=== PATIENT | male | born 1940 | race Caucasian/White ===

== ENCOUNTER 2020-04-02 08:44 | Outpatient (REF) | payer MEDICARE, SELFPAY ==
--- NOTE | 2020-04-02 08:47 | XR_ITS ---
EXAMINATION: XR CHEST CLINICAL INFORMATION: Wheezing. COMPARISON: None TECHNIQUE: 2 views of the chest were obtained. FINDINGS: No significant abnormality is noted involving the heart, lungs, mediastinum, bony thorax or soft tissues. XR/XR chest 2V IMPRESSION: Unremarkable chest examination.
== END 2020-04-02 08:45 | disposition home or self-care (01) ==
LOC: HO.HMGCX 08:44
PROVIDERS: PCP Internal Medicine; Visit Provider Physician Assistant
DX: R05 Cough (principal); R06.2 Wheezing; Z20.822 Contact with and (suspected) exposure to COVID-19
CPT/HCPCS: 36415; 71046; 87070; 87205; 87635; U0003; U0005

== ENCOUNTER → 2020-04-10 15:16 | Outpatient (BNVA) | payer MEDICARE, SELFPAY | PROVIDERS: PCP Internal Medicine; Visit Provider Internal Medicine | DX: J45.909 Unspecified asthma, uncomplicated (principal); R05 Cough | CPT/HCPCS: 99202 ==

== ENCOUNTER → 2020-05-08 11:09 | Outpatient (BNVA) | payer MEDICARE, SELFPAY | PROVIDERS: PCP Internal Medicine; Visit Provider Internal Medicine | DX: J45.909 Unspecified asthma, uncomplicated (principal); R05 Cough; Z79.51 Long term (current) use of inhaled steroids; Z87.891 Personal history of nicotine dependence | CPT/HCPCS: 99212 ==

== ENCOUNTER → 2020-11-14 10:01 | Outpatient (BNVA) | payer MEDICARE, SELFPAY | PROVIDERS: PCP Internal Medicine; Visit Provider Internal Medicine | DX: J45.909 Unspecified asthma, uncomplicated (principal); R05 Cough | CPT/HCPCS: 99212 ==

== ENCOUNTER 2021-03-12 07:31 | Outpatient (REF) | payer MEDICARE, SELFPAY ==
[2021-03-12 12:15] LABS: Alanine Aminotransferase 23 U/L (0-40); Anion Gap 13 (12-20); Aspartate Amino Transferase 26 U/L (5-37); Blood Urea Nitrogen 19 mg/dL (9-16); Calcium 9.7 mg/dL (8.4-10.2); Carbon Dioxide 28 mmol/L (22-29); Chloride 102 mmol/L (96-108); Cholesterol 254 mg/dL; Estimated Glomerular Filt Rate 54; Glucose Fasting 100 mg/dL (60-99); HDL Cholesterol 48 mg/dL; LDL Cholesterol Calculated 172 mg/dl; Potassium 4.2 mmol/L (3.3-5.1); Sodium 139 mmol/L (135-145); Triglycerides 172 mg/dL
[2021-03-12 12:30] LABS: Vitamin D 25-OH Total 21.5 ng/mL (>30)
[2021-03-12 12:43] LABS: Folate 18.7 ng/mL (> or = 4.0); Vitamin B12 434 pg/mL (200-900)
== END 2021-03-12 07:32 | disposition home or self-care (01) ==
LOC: HO.HMGCLDS 07:31
PROVIDERS: PCP Internal Medicine; Visit Provider Internal Medicine
DX: I10 Essential (primary) hypertension (principal); R53.83 Other fatigue
CPT/HCPCS: 36415; 80048; 80061; 82306; 82607; 82746; 84450; 84460

== ENCOUNTER 2021-03-16 09:35 | Outpatient (REF) | payer MEDICARE, SELFPAY ==
--- NOTE | ~2021-03-16 | XR_ITS ---
EXAMINATION: CR LEFT ELBOW. CR LEFT SHOULDER. CLINICAL INFORMATION: Fall due to isodense No. Initial encounter. COMPARISON: Chest x-ray dated 04/02/2020 and left humerus dated 08/29/2008. TECHNIQUE: 3 views of the left elbow. 3 views of the left shoulder. FINDINGS: Left elbow: Mild soft tissue swelling over the ulnar olecranon is suspected. No acute fracture or dislocation. No abnormal elevation of the anterior fat pad. No radiopaque foreign body or calcifications in the soft tissues. No significant degenerative change. Left shoulder: No acute fracture or dislocation. Glenohumeral joint and acromion clavicular joint intact. Minimal cystic change and spurring at the acromioclavicular joint. Included left ribs intact. XR/XR shoulder LT min 2V IMPRESSION: No acute fracture of the left elbow or left shoulder. There may be mild soft tissue swelling over the ulnar olecranon.
--- NOTE | ~2021-03-16 | XR_ITS ---
EXAMINATION: CR LEFT ELBOW. CR LEFT SHOULDER. CLINICAL INFORMATION: Fall due to isodense No. Initial encounter. COMPARISON: Chest x-ray dated 04/02/2020 and left humerus dated 08/29/2008. TECHNIQUE: 3 views of the left elbow. 3 views of the left shoulder. FINDINGS: Left elbow: Mild soft tissue swelling over the ulnar olecranon is suspected. No acute fracture or dislocation. No abnormal elevation of the anterior fat pad. No radiopaque foreign body or calcifications in the soft tissues. No significant degenerative change. Left shoulder: No acute fracture or dislocation. Glenohumeral joint and acromion clavicular joint intact. Minimal cystic change and spurring at the acromioclavicular joint. Included left ribs intact. XR/XR elbow LT min 3V IMPRESSION: No acute fracture of the left elbow or left shoulder. There may be mild soft tissue swelling over the ulnar olecranon.
== END 2021-03-16 09:36 | disposition home or self-care (01) ==
LOC: HO.HMGCX 09:35
PROVIDERS: Visit Provider Physician Assistant Medical
DX: M25.512 Pain in left shoulder (principal); M25.522 Pain in left elbow; W00.9XXA Unspecified fall due to ice and snow, initial encounter
CPT/HCPCS: 73030; 73080

== ENCOUNTER → 2021-05-15 09:35 | Outpatient (BNVA) | payer MEDICARE, SELFPAY | PROVIDERS: PCP Internal Medicine; Visit Provider Internal Medicine | DX: J45.909 Unspecified asthma, uncomplicated (principal); R05.9 Cough, unspecified | CPT/HCPCS: 99212 ==

== ENCOUNTER 2021-05-16 09:00 | Outpatient (RCR) | payer MEDICARE, SELFPAY ==
--- NOTE | 2021-04-04 10:20 | MHC.PT.EP ---
[facility] [place] Office [place] Office [place] Office [address] Francisco Thomas [address] [phone] F: [phone] F: [phone] F: [phone] F: [phone] Physical Therapy Plan of Care Date of Evaluation: Date of Surgery: Diagnosis: This is a 80 yo male presenting to skilled PT with a script for L trap strain and L bicep injury Assessment: This is a 80 yo male presenting to skilled PT with a script for L trap strain and L bicep injury. Patient is RHD. He reported just before he slipped on the ice and fell onto his L side. He continues to have pain in the L shoulder and arm now but has been fearful to move his arm. He did not go to any MD after the fall but when the shoulder pain did not resolve with time, patient saw PCP. The patient reports that he can hold a coffee cup but cannot lift anything heavier than this due to pain. Pain is at rest and with movement; described as achy and sharp. Pain is located across the neck into the L upper trap, around the L GHJ and travels into the bicep. Denies numbness or tingling. Assessment reveals pain that ranges up to a 7/10. He demos decreased shoulder and cervical ROM, decreased shoulder and scapular strength, impaired posture with forward head and rounded posture, impaired GHJ joint mobility as well as gross functional decline with lifting, reaching and UB ADLs. He is a good candidate for skilled PT 2x/wk for 5wks. Frequency and Duration: The patient will be seen 2x/wk for 5wks Short Term Goals: I in HEP Demo proper cervical and shoulder alignment and posture with ther-ex, no PT cuing Supervisor Facepiece Line Goals: Demo normal shoulder AROM without pain Improve pain to no more than 2/10 at the worst Improve SPADI by 10 points Tolerate sleeping through the night without waking from pain Demo at least 4+/5 scapular and shoulder strength Treatment Plan: Modalities to reduce pain, spasms and effusion. Manual therapy to restore motion and function. Therapeutic exercise to improve strength and flexibility. Neuromuscular re-education for posture and balance. Therapeutic activities to return to functional activities of daily living. Electronically signed by: Zulay Subramanian PT Please sign and return to therapist. Thank you for your referral.
--- NOTE | 2021-05-16 12:28 | MHC.PT.DC ---
[facility] [place] Office [place] Office [place] Office [address] [phone] F: [phone] F: [phone] F: [phone] F: [phone] Physical Therapy Discharge Report Diagnosis: This is a 80 yo male presenting to skilled PT with a script for L trap strain and L bicep injury Date of Surgery: Date of Evaluation: 04/04/21 Date of Discharge: 05/16/21 Treatments to Date: 7 Cancellations to Date: 0 No Shows to Date: 0 Discharge Status: Achieved Goals Improved Function Independent with HEP Discharge Summary: Pt is I with HEP. Pt has met all ST and LTG's. He demos WFL ROM and improving strength. He is I in his HEP, has returned to normal daily routines and has improved his pain. He has a thorough HEP at home. DC to independent program. Electronically signed by: Zulay Subramanian PT Please sign and return to therapist. Thank you for your referral.
== END 2021-05-16 12:28 | disposition home or self-care (01) ==
LOC: HO.PTCHIC 09:00
PROVIDERS: PCP Internal Medicine; Visit Provider Physician Assistant Medical
DX: S46.812D Strain of other muscles, fascia and tendons at shoulder and upper arm level, left arm, subsequent encounter (principal); W00.9XXA Unspecified fall due to ice and snow, initial encounter
CPT/HCPCS: 97110; 97140; 97162

== ENCOUNTER → 2021-11-19 09:31 | Outpatient (BNVA) | payer MEDICARE, SELFPAY | PROVIDERS: PCP Internal Medicine; Visit Provider Internal Medicine | DX: J45.909 Unspecified asthma, uncomplicated (principal) | CPT/HCPCS: 94010; 99212 ==

== ENCOUNTER → 2022-05-27 09:51 | Outpatient (BNVA) | payer MEDICARE, SELFPAY | PROVIDERS: PCP Internal Medicine; Visit Provider Internal Medicine | DX: J45.991 Cough variant asthma (principal); Z87.891 Personal history of nicotine dependence | CPT/HCPCS: 99212 ==

== ENCOUNTER 2022-11-25 09:25 | Outpatient (AMB) | payer MEDICARE, SELFPAY ==
[2022-11-25 09:42] VITALS: BP 110/70; PULSE 64; O2SAT 98; BMI 28.2
--- NOTE | 2022-11-25 09:42 | MHC.OFFVIS ---
Intake Vital Signs 11/25/22 09:42 Height 5 ft 9 in Weight 191 lb BMI 28.2 BP 110/70 Blood Pressure Location Lt brachial Position Sitting Pulse 64 Pulse Source Pulse Oximeter Pulse Oximetry (%) 98 Oxygen Delivery Method Room Air Intake Visit Reasons: Shortness of breath follow-up Intake Note: pt is here for follow up and states he is the same as last visit, normal activity is fine, exertion he uses the inhaler. 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 Allergies naproxen Allergy (Unknown, Verified 11/25/22 10:06) GI bleed NSAIDS (Non-Steroidal Anti-Inflamma Allergy (Unknown, Verified 11/25/22 10:06) GI Bleed Medication List - Last Reconciled 11/25/22 by Idalia Mullen MD albuterol sulfate 90 mcg/actuation (ProAir HFA) 2 puffs inhalation Q4-6H PRN 30 days famotidine 40 mg PO QAM fluticasone propionate 100 mcg/actuation (Flovent Diskus) 1 inh inhalation BID gabapentin 300 mg PO Q12H 3 months ipratropium bromide 2 sprays intranasal BID losartan 50 mg PO DAILY montelukast 10 mg PO DAILY Do you need a note to return to daycare/school/sports/work: No HPI Shortness of breath follow-up HPI Details 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 NASAL SYMPTOMS HAVE REMAINED MINIMAL, HE DOES NOT HAVE TO USE ANY NASAL SPRAY. BREATHING IS HOLDING VERY STABLE WITH FLOVENT DISKUS-100 B.I.D. AND HE HARDLY NEEDS TO USE THE RESCUE INHALER. HE DOES GET TIRED MORE EASILY AND OF COURSE THIS IS DUE TO AGING PROCESSES. HE HAS HIT 80 OVERALL STAYING VERY HEALTHY AND STABLE. [facility] Medical History Dyslipidemia Medial epicondylitis of left elbow Peripheral polyneuropathy Degenerative arthritis of cervical spine Chronic GERD Bronchial asthma Allergic rhinitis Social History Housing: House Patient Tobacco Use Status: Former Tobacco user Years Smoked: 12 e-Cigarette/Vaping Use: Never Used Current occupational status: retired Cognitive needs: No Hearing needs: No Vision needs: Yes Review of Systems Const All systems reviewed & are unremarkable except as noted in HPI and below Eyes Reports no additional complaints ENT Reports nasal discharge (Off and on) Card Reports no additional complaints Resp Reports as per HPI GI Reports no additional complaints Reports no additional complaints Musc Reports no additional complaints Skin/Breast Reports system reviewed and no additional complaints, except as documented Neuro Reports no additional complaints Psych Reports no additional complaints Physical Exam Vital Signs: Last Vital Signs Pulse 64 11/25/22 09:42 BP 110/70 11/25/22 09:42 Pulse Ox 98 11/25/22 09:42 Oxygen Delivery Method Room Air 11/25/22 09:42 BMI result Body Mass Index 28.2 Const General: healthy appearing, comfortable, no acute distress, alert and awake Orientation/consciousness: patient oriented x3 HEENT Head: Yes normal to inspection General nose exam: No nasal polyps present and No nasal discharge present Face and sinus: Yes sinuses nontender Mouth: oropharynx normal Throat: Yes posterior oropharynx normal Eyes General: appearance normal, both eyes and all related structures Neck Neck: Yes normal visual inspection, Yes no lymphadenopathy, Yes trachea midline and Yes no JVD Thyroid: Thyroid normal Chest Chest palpation & inspection: normal inspection of the chest and no tenderness Resp Effort & Inspection: normal respiratory effort Auscultation: clear to auscultation bilaterally, no crackles, no rhonchi and no wheezes Percussion: percussion normal Cardio Palpation: normal PMI Rate: regular rate Rhythm: regular rhythm Heart sounds: no gallops and no murmurs Peripheral pulses: Peripheral pulses 2+ throughout GI Palpation (GI): Soft to palpation, nontender, No hepatosplenomegaly present and no masses Auscultation: normal bowel sounds Back/Spine/Pelvis Thoracic/Lumbar Spine: thoracic and lumbar spine normal to inspection Skin General skin exam: no rashes or lesions noted Neuro General: patient oriented x3 and no focal motor deficits Cranial nerves: Yes CN's II-XII intact bilaterally Extrem General: Yes normal to inspection, Yes no clubbing, cyanosis or edema and Yes no calf tenderness Psych Appearance: grossly normal and well kempt Speech and movement: Normal speech and movement present Assessment & Plan Assessment & Plan (1) Bronchial asthma: Comment: HIS BRONCHIAL ASTHMA IS, MORE COUGH VARIANT, AND IS WELL CONTROLLED . HE DOES HAVE INTERMITTENT WHEEZING, USUALLY DUE TO CHANGE IN THE WEATHER , WHICH IS SOMEWHAT MORE THAN USUAL. TX: CONTINUE FLOVENT DISKUS -100 1 INHALATION B.I.D.. ALBUTEROL MDI 2 PUFFS Q 4-6 HOURS P.R.N. IF THERE IS SUSTAINED COUGH OR ANY WHEEZING. Code(s): J45.909 - Unspecified asthma, uncomplicated (2) Allergic rhinitis: Comment: CHRONIC ALLERGIC/VASOMOTOR RHINITIS. IT IS STAYING WELL CONTROLLED WITH THE CURRENT REGIMEN : MONTELUKAST 10 MG DAILY ATROVENT NASAL SPARAY BID P.R.N. Code(s): J30.9 - Allergic rhinitis, unspecified Coding Level of Care Code Est Pt Level 3 (72221) Diagnoses Bronchial asthma J45.909 Allergic rhinitis J30.9
== END 2022-11-25 10:09 | disposition home or self-care (01) ==
PROVIDERS: PCP Internal Medicine; Visit Provider Internal Medicine
DX: J45.909 Unspecified asthma, uncomplicated (principal); J30.9 Allergic rhinitis, unspecified
CPT/HCPCS: 99213

== ENCOUNTER → 2022-11-25 09:25 | Outpatient (BNVA) | payer MEDICARE, SELFPAY | PROVIDERS: Visit Provider Internal Medicine | DX: J45.909 Unspecified asthma, uncomplicated (principal) | CPT/HCPCS: 99212 ==

== ENCOUNTER 2023-01-06 07:06 | Outpatient (REF) | payer MEDICARE, SELFPAY ==
[2023-01-06 11:46] LABS: Alanine Aminotransferase 22 U/L (0-40); Anion Gap 12 (12-20); Aspartate Amino Transferase 35 U/L (5-37); Blood Urea Nitrogen 18 mg/dL (9-16); Calcium 9.6 mg/dL (8.4-10.2); Carbon Dioxide 27 mmol/L (22-29); Chloride 105 mmol/L (96-108); Cholesterol 221 mg/dL (<200); Estimated Glomerular Filt Rate 55; Glucose Fasting 97 mg/dL (60-99); HDL Cholesterol 51 mg/dL (>40); LDL Cholesterol Calculated 144 mg/dL (<100); Sodium 140 mmol/L (135-145); Triglycerides 131 mg/dL (<150)
== END 2023-01-06 07:07 | disposition home or self-care (01) ==
LOC: HO.HMGCLDS 07:06
PROVIDERS: PCP Internal Medicine; Visit Provider Internal Medicine
DX: E78.5 Hyperlipidemia, unspecified (principal); I10 Essential (primary) hypertension; Z01.84 Encounter for antibody response examination
CPT/HCPCS: 36415; 80048; 80061; 84450; 84460; 86787

== ENCOUNTER 2023-01-12 08:19 | Outpatient (AMB) | payer MEDICARE, SELFPAY ==
[2023-01-12 08:36] VITALS: BP 112/62; PULSE 74; O2SAT 98; BMI 27.8
--- NOTE | 2023-01-12 08:36 | MHC.PC.OV ---
"Vital Signs 01/12/23 08:36 Height 5 ft 9 in Weight 188 lb BMI 27.8 BP 112/62 Blood Pressure Location Lt brachial Position Sitting Pulse 74 Pulse Source Pulse Oximeter Pulse Oximetry (%) 98 Oxygen Delivery Method Room Air Intake Visit Reasons: Annual PE Intake Note: Pt is here today for his PE, last colonoscopy was 01/23/[address] Lara at [facility] [place] Allergies naproxen Allergy (Unknown, Verified 01/12/23 08:55) GI bleed NSAIDS (Non-Steroidal Anti-Inflamma Allergy (Unknown, Verified 01/12/23 08:55) GI Bleed Medication List - Last Reconciled 01/12/23 by Umm Brewer MD albuterol sulfate 90 mcg/actuation (ProAir HFA) 2 puffs inhalation Q4-6H PRN 30 days famotidine 40 mg PO QAM fluticasone propionate 100 mcg/actuation (Flovent Diskus) 1 inh inhalation BID gabapentin 300 mg PO Q12H 3 months ipratropium bromide 2 sprays intranasal BID losartan 50 mg PO DAILY montelukast 10 mg PO DAILY Tobacco use date assessed: 01/12/23 Fall risk assessment: No Falls in past year Last assessed Fall Risk: 01/12/23 Dental Screening Dental Screen Date: 01/12/23 Did you have a dental visit in the last 12 months?: Yes Did you have a dental problem in the last 6 months where you did not have access to dental care?: No Was dental information given to patient?: Patient has dentist HPI Annual PE HPI Details 82-year-old male with dyslipidemia, degenerative arthritis in cervical spine, chronic GERD, mild intermittent asthma, allergic rhinitis and hypertension as well as history of vitamin-D deficiency and peripheral neuropathy, here today for his physical exam. He has been taking his medications as directed, tries to eat a healthy diet. He stays active, plays golf every and uses stationary bike when unable to go outdoors to walk. He has been feeling well with no complaints at present time, currently sees a [facility] for prostate cancer screening. [facility] Medical History (Updated 01/13/23 @ 02:18 by Umm Brewer MD) Vitamin D deficiency Dyslipidemia Peripheral polyneuropathy Degenerative arthritis of cervical spine Chronic GERD Bronchial asthma Allergic rhinitis Social History Housing: House Patient Tobacco Use Status: Former Tobacco user Years Smoked: 12 e-Cigarette/Vaping Use: Never Used Current occupational status: retired Cognitive needs: No Hearing needs: No Vision needs: Yes Questionnaire PHQ-9 Over the last 2 weeks, how often have you been bothered by any of the following problems? 1. Little interest or pleasure in doing things: not at all 2. Feeling down, depressed, or hopeless: not at all 3. Trouble falling or staying asleep, or sleeping too much: several days 4. Feeling tired or having little energy: not at all 5. Poor appetite or overeating: not at all 6. Feeling bad about yourself - or that you are a failure or have let yourself or your family down: not at all 7. Trouble concentrating on things, such as reading the newspaper or watching television: not at all 8. Moving or speaking so slowly that other people could have noticed. Or the opposite - being so fidgety or restless that you have been moving around a lot more than usual: not at all 9. Thoughts that you would be better off or of hurting yourself in some way: not at all Total score: 1 Depression Screening Interpretation: Negative Depression Screening Done: Yes 73513 - PHQ-9 Billing: Yes Source: Developed by Drs. Chandan Loera, Dylan Gordon and colleagues, with an educational lore from [employer] - innovate | mentor | invest. Thrive Questionnaire Date Thrive assessed: 07/08/22 NELLY-7 AMB Questionnaire NELLY-7 Date NELLY - 7 assessed: 07/08/22 Source: Developed by Drs. Chandan Loera, Dylan Gordon and colleagues, with an educational lore from [employer] - innovate | mentor | invest. Review of Systems Const All systems reviewed & are unremarkable except as noted in HPI and below Eyes Reports no additional complaints ENT Reports nasal discharge (Off and on) Card Reports no additional complaints Resp Reports as per HPI GI Reports no additional complaints Reports no additional complaints Musc Reports as per HPI Skin/Breast Reports system reviewed and no additional complaints, except as documented Neuro Reports no additional complaints Psych Reports no additional complaints Endo Reports no additional complaints Khoi/Lymph Denies easy bleeding and Denies easy bruising Aller/Immun Reports no additional complaints Physical exam (Primary Care) Vital Signs: Last Vital Signs Pulse 74 01/12/23 08:36 BP 112/62 01/12/23 08:36 Pulse Ox 98 01/12/23 08:36 Oxygen Delivery Method Room Air 01/12/23 08:36 BMI result Body Mass Index 27.8 Tobacco/Smoking Status: Tobacco use Status Tobacco use date assessed 01/12/23 01/12/23 08:41 Patient Tobacco Use Status Former Tobacco user 01/12/23 08:41 e-Cigarette/Vaping Use Never Used 01/12/23 08:41 Depression Screening Interpretation: Negative Thrive Assessment: Date of Thrive Assessment Date Thrive assessed 07/08/22 01/12/23 08:41 Const Other: Alert oriented x3, no acute cardiorespiratory distress, ambulatory normal gait Orientation/consciousness: patient oriented x3 HENMT Other: Bilateral impacted cerumen Eyes General: appearance normal, both eyes and all related structures Neck Neck: Yes full ROM, Yes no lymphadenopathy and Yes supple Chest Chest palpation & inspection: normal inspection of the chest Resp Auscultation: clear to auscultation bilaterally Cardio Other: S1-S2 present regular rate and rhythm GI Inspection: Yes normal to inspection Palpation (GI): Soft to palpation, nontender, no guarding and no masses Percussion: Yes normal to percussion General: Yes no CVA tenderness Back/Spine/Pelvis Back: no CVA tenderness and No back tenderness Skin General skin exam: no rashes or lesions noted Neuro Other: Mild tremors noted in both hands, left more than the right, no weakness General: patient oriented x3, gait normal, tone normal, moves all extremities, Normal light touch and pain sensation and CN's II-XI intact bilaterally Extrem General: Yes full ROM, Yes normal exam except as noted, Yes no clubbing, cyanosis or edema, Yes no pedal edema, Yes no calf tenderness and Yes normal gait Psych Appearance: grossly normal and well kempt Mental Status: mental status grossly normal Speech and movement: Normal speech and movement present Affect: normal affect Attitude: cooperative Thought process: Normal thought process present Results Reviewed Results Reviewed: Name: Sebastien Cody Age/Sex: 82/M : 1940 Unit#: [id number] Attend Dr: Umm Brewer MD Re01/06/23 Status: DEP REF Location: [facility] Disch: SPEC : [id number] BRUNA: 01/06/23 STATUS: COMP REQ : [id number] RECD: 01/06/23-[address]: Umm Brewer MD COMP: 01/06/23114 ENTERED: 01/06/[address] [facility] [address]: ORDERED: Met Prof Fast, AST, ALT, Lipid Panel Test Result Flag Reference Site Sodium 140 135-145 mmol/L Potassium 4.0 3.3-5.1 mmol/L CL 105 96-108 mmol/L CO2 27 22-29 mmol/L Gap 12 12-20 BUN 18 H 9-16 mg/dL Creat 1.26 0.5-1.4 mg/dL EGFR 55 NOTE: For -Macedonian individuals, multiply the result by 1.210. Chronic Kidney Disease: Estimated GFR < 60 mL/min/1.73m2 Severe Kidney Disease: Estimated GFR < 15 mL/min/1.73m2 FBS 97 60-99 mg/dL CA 9.6 8.4-10.2 mg/dL AST (GOT) 35 5-37 U/L ALT (GPT) 22 0-40 U/L Triglyceride 131 <150 mg/dL Desirable Triglyceride: less than 150 mg/dL Borderline High Triglyceride 150-199 mg/dL High Triglyceride: 200-499 mg/dL Very High Triglyceride: greater than or equal to 5OO mg/dL Cholesterol 221 H <200 mg/dL Desirable Cholesterol: less than 200 mg/dL Borderline High Cholesterol: 200-239 mg/dL High Cholesterol: greater than 239 mg/dL LDL Calculated 144 H <100 mg/dL Desirable LDL: less than 100 mg/dL Near Optimal/Above Optimal LDL: 110-129 mg/dL Borderline High LDL: 130-159 mg/dL High LDL: 160-189 mg/dL Very High LDL: greater than or equal to 190 mg/dL HDL 51 >40 mg/dL Desirable HDL: greater than 40 mg/dL Note: This HDL assay may give artificially low results in patients with liver disease. Assessment and Plan Assessment & Plan (1) Annual visit for general adult medical examination with abnormal findings: Code(s): Z00.01 - Encounter for general adult medical examination with abnormal findings Plan: Reviewed recent fasting lab results with patient. Continue with regular dental visit every 6 months and regular eye exams, at least every 2 years. Take adequate calcium in diet and vitamin-D 3 at 2000 IU per cap once a day, in addition to weight-bearing exercises to help maintain good muscle tone and weight control. Up-to-date with his vaccination. (2) Dyslipidemia: Code(s): E78.5 - Hyperlipidemia, unspecified Plan: Reviewed recent fasting lab results with patient, with LDL cholesterol slightly elevated. Continue staying active, and continue with healthy eating habits. (3) Degenerative arthritis of cervical spine: Code(s): M47.812 - Spondylosis without myelopathy or radiculopathy, cervical region Plan: Currently on gabapentin 300 mg every 12 hours (4) Peripheral polyneuropathy: Code(s): G62.9 - Polyneuropathy, unspecified Plan: Currently on gabapentin 300 mg every 12 hours (5) Chronic GERD: Code(s): K21.9 - Gastro-esophageal reflux disease without esophagitis Plan: Takes famotidine 40 mg 1 tablet daily in a.m. (6) Bronchial asthma: Comment: HIS BRONCHIAL ASTHMA IS, MORE COUGH VARIANT, AND IS WELL CONTROLLED . HE DOES HAVE INTERMITTENT WHEEZING, USUALLY DUE TO CHANGE IN THE WEATHER , WHICH IS SOMEWHAT MORE THAN USUAL. TX: CONTINUE FLOVENT DISKUS -100 1 INHALATION B.I.D.. ALBUTEROL MDI 2 PUFFS Q 4-6 HOURS P.R.N. IF THERE IS SUSTAINED COUGH OR ANY WHEEZING. Code(s): J45.909 - Unspecified asthma, uncomplicated Plan: Followed by Pulmonary, currently on Flovent which has been controlling well her his bronchial asthma. Patient has albuterol rescue inhaler, which she states he rarely needs to use (7) Allergic rhinitis: Comment: CHRONIC ALLERGIC/VASOMOTOR RHINITIS. IT IS STAYING WELL CONTROLLED WITH THE CURRENT REGIMEN : MONTELUKAST 10 MG DAILY ATROVENT NASAL SPARAY BID P.R.N. Code(s): J30.9 - Allergic rhinitis, unspecified Qualifiers: Allergic rhinitis seasonality: non-seasonal Allergic rhinitis trigger: unspecified Qualified Code(s): J30.89 - Other allergic rhinitis Plan: Currently on montelukast 10 mg daily and uses ipratropium bromide nasal spray once or twice a day as needed., sees Dr. Lance (8) Hypertension: Code(s): I10 - Essential (primary) hypertension Qualifiers: Hypertension type: primary hypertension Qualified Code(s): I10 - Essential (primary) hypertension Plan: Blood pressure at goal of less than 130/80. Continue with losartan 50 mg daily. Reinforced importance of following a low sodium diet, getting regular exercise, and lowering stress levels. Orders: Orders Basic Metabolic Panel Fasting 06/22/23 E55.9 - Vitamin D deficiency, unspecified, E78.5 - Hyperlipidemia, unspecified, I10 - Essential (primary) hypertension Alanine Aminotransferase 06/22/23 E55.9 - Vitamin D deficiency, unspecified, E78.5 - Hyperlipidemia, unspecified, I10 - Essential (primary) hypertension Lipid Panel 06/22/23 E55.9 - Vitamin D deficiency, unspecified, E78.5 - Hyperlipidemia, unspecified, I10 - Essential (primary) hypertension Aspartate Amino Transferase 06/22/23 E55.9 - Vitamin D deficiency, unspecified, E78.5 - Hyperlipidemia, unspecified, I10 - Essential (primary) hypertension Vitamin D 25-OH Total 06/22/23 E55.9 - Vitamin D deficiency, unspecified, E78.5 - Hyperlipidemia, unspecified, I10 - Essential (primary) hypertension Medications: Changed From ipratropium bromide 2 sprays intranasal BID To ipratropium bromide 2 sprays intranasal BID 3 months 45 mL 0RF Coding Level of Care Code Est Pt Prev Care >65y(84601) Diagnoses Annual visit for general adult medical examination with abnormal findings Z00.01 Dyslipidemia E78.5 Degenerative arthritis of cervical spine M47.812 Peripheral polyneuropathy G62.9 Chronic GERD K21.9 Bronchial asthma J45.909 Non-seasonal allergic rhinitis, unspecified trigger J30.89 Allergic rhinitis seasonality: non-seasonal Allergic rhinitis trigger: unspecified Primary hypertension I10 Hypertension type: primary hypertension"
== END 2023-01-12 10:01 | disposition home or self-care (01) ==
PROVIDERS: Visit Provider Internal Medicine
DX: Z00.00 Encounter for general adult medical examination without abnormal findings (principal); E78.5 Hyperlipidemia, unspecified; M47.812 Spondylosis without myelopathy or radiculopathy, cervical region; G62.9 Polyneuropathy, unspecified; K21.9 Gastro-esophageal reflux disease without esophagitis; J45.909 Unspecified asthma, uncomplicated; J30.89 Other allergic rhinitis; I10 Essential (primary) hypertension
CPT/HCPCS: 99397

== ENCOUNTER 2023-04-29 08:02 | Outpatient (AMB) | payer MEDICARE, SELFPAY ==
[2023-04-29 08:08] VITALS: BP 128/72; PULSE 67; TEMP 36.5; O2SAT 98; BMI 27.8
--- NOTE | 2023-04-29 08:08 | MHC.OFFWIV ---
Intake Vital Signs 04/29/23 08:08 Height 5 ft 9 in Weight 188 lb BMI 27.8 BP 128/72 Blood Pressure Location Lt brachial Position Sitting Pulse 67 Pulse Source Pulse Oximeter Temp 97.7 F Temp Source Oral Pulse Oximetry (%) 98 Oxygen Delivery Method Room Air Intake Visit Reasons: EP bronchial asthma cough masked in lobby Intake Note: pt is here for c.o cough, causing issues with his asthma for 1 week Patient Tobacco Use Status: Former Tobacco user Allergies naproxen Allergy (Unknown, Verified 04/29/23 08:08) GI bleed NSAIDS (Non-Steroidal Anti-Inflamma Allergy (Unknown, Verified 04/29/23 08:08) GI Bleed Do you need a note to return to daycare/school/sports/work: No HPI HPI Comments History of Present Illness Details 82 y/o male patient who presents to walk in clinic with c/o Cough x 1 week. Denies fevers, chills, nausea or vomiting. No recent sick contact. H/o Asthma. Does not smoke. [facility] Medical History (Updated 01/13/23 @ 02:18 by Umm Brewer MD) Vitamin D deficiency Dyslipidemia Peripheral polyneuropathy Degenerative arthritis of cervical spine Chronic GERD Bronchial asthma Allergic rhinitis Social History Housing: House Patient Tobacco Use Status: Former Tobacco user Years Smoked: 12 e-Cigarette/Vaping Use: Never Used Current occupational status: retired Cognitive needs: No Hearing needs: No Vision needs: Yes Review of Systems Const All systems reviewed & are unremarkable except as noted in HPI and below Physical Exam Vital Signs: Last Vital Signs Temp 97.7 F 04/29/23 08:08 Pulse 67 04/29/23 08:08 BP 128/72 04/29/23 08:08 Pulse Ox 98 04/29/23 08:08 Oxygen Delivery Method Room Air 04/29/23 08:08 BMI result Body Mass Index 27.8 Const General: comfortable and no acute distress HEENT Head: Yes normocephalic Ears: external ears normal and TM's normal bilaterally Face and sinus: Yes sinuses nontender Resp Effort & Inspection: normal respiratory effort, able to speak in complete sentences and Actively coughing Auscultation: clear to auscultation bilaterally, no crackles, no rales, no rhonchi and no wheezes Assessment & Plan Assessment & Plan (1) Cough in adult: Code(s): R05.9 - Cough, unspecified Plan: - Warm fluids. - Continue on Asthma Meds. - Chest Xray - SARs Orders: Orders SARS-CoV2/FLU/RSV Today R05.9 - Cough, unspecified XR chest 2V Today R05.9 - Cough, unspecified Medications: New benzonatate 100 mg PO TID 30 caps 0RF R05.9 - Cough, unspecified Coding Level of Care Code Est Pt Level 3 (59484) Diagnoses Cough in adult R05.9 Time Spent (min) 15
== END 2023-04-29 08:42 | disposition home or self-care (01) ==
PROVIDERS: PCP Internal Medicine; Visit Provider Nurse Practitioner Family
DX: R05.9 Cough, unspecified (principal)
CPT/HCPCS: 99213

== ENCOUNTER 2023-04-29 08:31 | Outpatient (REF) | payer MEDICARE, SELFPAY ==
--- NOTE | ~2023-04-29 | XR_ITS ---
EXAMINATION: XR CHEST CLINICAL INFORMATION: Cough for one week COMPARISON: None available. TECHNIQUE: 2 views of the chest were obtained. FINDINGS: The lungs are hyperinflated but clear. Heart size and pulmonary vascularity is normal. No gross bony abnormality. XR/XR chest 2V IMPRESSION: Hyperinflated lungs without acute process.
[2023-04-29 12:19] LABS: Influenza A PCR NEGATIVE (Negative); Influenza B PCR NEGATIVE (Negative); Resp Syncy Virus RNA Qual PCR NEGATIVE (Negative); SARS COV2 PCR INHOUSE NEGATIVE (Negative)
== END 2023-04-29 08:32 | disposition home or self-care (01) ==
LOC: HO.HMGCX 08:31
PROVIDERS: PCP Internal Medicine; Visit Provider Nurse Practitioner Family
DX: Z11.52 Encounter for screening for COVID-19 (principal); Z20.822 Contact with and (suspected) exposure to COVID-19; R05.9 Cough, unspecified
CPT/HCPCS: 0241U; 71046

== ENCOUNTER 2023-05-04 13:26 | Outpatient (AMB) | payer MEDICARE, SELFPAY ==
--- NOTE | 2023-05-04 13:30 | A.OFFVIS_ITS ---
Intake Vital Signs 05/04/23 13:36 Height 5 ft 9 in Weight 185 lb BMI 27.3 BP 140/80 H Blood Pressure Location Lt brachial Position Sitting Respiration 16 Pulse 70 Pulse Source Pulse Oximeter Pulse Oximetry (%) 98 Oxygen Delivery Method Room Air Intake Visit Reasons: cough and shortness of breath with exertion Intake Note: Patient states he's had a cough for 2 weeks now. He went to Urgent Care and had a X-Ray done. He states the cough is worse morning and night. Allergies naproxen Allergy (Unknown, Verified 05/04/23 13:31) GI bleed NSAIDS (Non-Steroidal Anti-Inflamma Allergy (Unknown, Verified 05/04/23 13:31) GI Bleed [facility] Medical History (Updated 01/13/23 @ 02:18 by Umm Brewer MD) Vitamin D deficiency Dyslipidemia Peripheral polyneuropathy Degenerative arthritis of cervical spine Chronic GERD Bronchial asthma Allergic rhinitis Social History Housing: House Patient Tobacco Use Status: Former Tobacco user Years Smoked: 12 e-Cigarette/Vaping Use: Never Used Current occupational status: retired Cognitive needs: No Hearing needs: No Vision needs: Yes 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
[2023-05-04 13:36] VITALS: BP 140/80; PULSE 70; RESP 16; O2SAT 98; BMI 27.3
--- NOTE | 2023-05-04 13:53 | A.OFFVIS_ITS ---
Intake Vital Signs 05/04/23 13:36 05/04/23 13:59 Height 5 ft 9 in Weight 185 lb BMI 27.3 27.3 BP 140/80 H Blood Pressure Location Lt brachial Position Sitting Respiration 16 Pulse 70 Pulse Source Pulse Oximeter Pulse Oximetry (%) 98 Oxygen Delivery Method Room Air Intake Visit Reasons: cough and shortness of breath with exertion Allergies naproxen Allergy (Unknown, Verified 05/04/23 13:53) GI bleed NSAIDS (Non-Steroidal Anti-Inflamma Allergy (Unknown, Verified 05/04/23 13:53) GI Bleed Medication List - Last Reconciled 05/04/23 by Idalia Mullen MD albuterol sulfate 90 mcg/actuation (ProAir HFA) 2 puffs inhalation Q4-6H PRN 30 days benzonatate 100 mg PO TID famotidine 40 mg PO QAM fluticasone propionate 100 mcg/actuation (Flovent Diskus) 1 inh inhalation BID gabapentin 300 mg PO Q12H 3 months ipratropium bromide 2 sprays intranasal BID 3 months losartan 50 mg PO DAILY montelukast 10 mg PO DAILY Do you need a note to return to daycare/school/sports/work: No HPI cough and shortness of breath with exertion HPI Details Sebastien is 82 years old very pleasant gentleman who is here for an urg ent visit. 2 weeks ago started having symptoms of u pper respiratory infection, with cough. And increased shortness of breath He was seen in the urgent care clinic, and prescribed benzonatate 100 mg t.i.d. p.r.n. for cough. He was not given any . Additional medication He is here today because he continues to have very frequent bothersome cough, which is mostly dry, . Is worse at night he is also somewhat more short of breath than. Usual but denies any wheezing [facility] Medical History (Updated 05/04/23 @ 13:58 by Idalia Mullen MD) COPD exacerbation Vitamin D deficiency Dyslipidemia Peripheral polyneuropathy Degenerative arthritis of cervical spine Chronic GERD Bronchial asthma Allergic rhinitis Social History Housing: House Patient Tobacco Use Status: Former Tobacco user Years Smoked: 12 e-Cigarette/Vaping Use: Never Used Current occupational status: retired Cognitive needs: No Hearing needs: No Vision needs: Yes Review of Systems Const All systems reviewed & are unremarkable except as noted in HPI and below Eyes Reports no additional complaints ENT Reports nasal discharge (Off and on) Card Reports no additional complaints Resp Reports as per HPI GI Reports no additional complaints Reports no additional complaints Musc Reports no additional complaints Skin/Breast Reports system reviewed and no additional complaints, except as documented Neuro Reports no additional complaints Psych Reports no additional complaints Physical Exam Vital Signs: Last Vital Signs Pulse 70 05/04/23 13:36 Resp 16 05/04/23 13:36 BP 140/80 H 05/04/23 13:36 Pulse Ox 98 05/04/23 13:36 Oxygen Delivery Method Room Air 05/04/23 13:36 BMI result Body Mass Index 27.3 Const General: healthy appearing, comfortable, no acute distress, alert and awake Orientation/consciousness: patient oriented x3 HEENT Head: Yes normal to inspection General nose exam: No nasal polyps present and No nasal discharge present Face and sinus: Yes sinuses nontender Mouth: oropharynx normal Throat: Yes posterior oropharynx normal Eyes General: appearance normal, both eyes and all related structures Neck Neck: Yes normal visual inspection, Yes no lymphadenopathy, Yes trachea midline and Yes no JVD Thyroid: Thyroid normal Chest Chest palpation & inspection: normal inspection of the chest and no tenderness Resp Other: Percussion note is resonant and breath sounds are quite distant on both sides with prolonged expiratory phase Effort & Inspection: normal respiratory effort Auscultation: no crackles, no rhonchi and no wheezes Percussion: percussion normal Cardio Palpation: normal PMI Rate: regular rate Rhythm: regular rhythm Heart sounds: no gallops and no murmurs Peripheral pulses: Peripheral pulses 2+ throughout GI Palpation (GI): Soft to palpation, nontender, No hepatosplenomegaly present and no masses Auscultation: normal bowel sounds Back/Spine/Pelvis Thoracic/Lumbar Spine: thoracic and lumbar spine normal to inspection Skin General skin exam: no rashes or lesions noted Neuro General: patient oriented x3 and no focal motor deficits Cranial nerves: Yes CN's II-XII intact bilaterally Extrem General: Yes normal to inspection, Yes no clubbing, cyanosis or edema and Yes no calf tenderness Psych Appearance: grossly normal and well kempt Speech and movement: Normal speech and movement present Assessment & Plan Assessment & Plan (1) COPD exacerbation: Comment: Patient has had mild bronchial asthma/COPD. Has been well controlled with use of the Flovent Diskus-100. B.i.d.. He could not get this from the pharmacy as it has been discontinued. Seen in the urgent care clinic and treated just symptom medically. Chest x-ray showed hyperinflation but no infiltrates. Code(s): J44.1 - Chronic obstructive pulmonary disease with (acute) exacerbation Plan: Because of persistent symptoms I will treat him with a short course of prednisone (20 mg b.i.d. for 5 days ) Also started on Z-Jeff. In place of Flovent I will change it to Wixela 250-50 1 inhalation b.i.d. he will use it b.i.d. until his acute symptoms resolved and then he will use it only as needed (2) Allergic rhinitis: Comment: CHRONIC ALLERGIC/VASOMOTOR RHINITIS. IT IS STAYING WELL CONTROLLED WITH THE CURRENT REGIMEN : Code(s): J30.9 - Allergic rhinitis, unspecified Qualifiers: Allergic rhinitis trigger: unspecified Allergic rhinitis seasonality: non-seasonal Qualified Code(s): J30.89 - Other allergic rhinitis Plan: tx :MONTELUKAST 10 MG DAILY ATROVENT NASAL SPARAY BID P.R.N. Medications: New fluticasone propion-salmeterol 250-50 mcg/dose (Wixela Inhub) 1 inh inhalation BID 60 ea 3RF asthma/copd 30 days prednisone 20 mg PO BID 10 tabs 0RF excerbation of copd 5 days azithromycin For 250 mg dose pack: take 500 mg today (day 1), then 250 mg for 4 days (days 2-5) PO 6 tabs 0RF Quality Reporting (2019) Adult ([facility] 138/2/69) Body Mass Index: 27.3 Coding Level of Care Code Est Pt Level 3 (31255) Diagnoses COPD exacerbation J44.1 Non-seasonal allergic rhinitis, unspecified trigger J30.89 Allergic rhinitis trigger: unspecified Allergic rhinitis seasonality: non-seasonal
[2023-05-04 13:59] VITALS: BMI 27.3
--- NOTE | 2023-05-04 15:26 | MHC.OFFVIS ---
Intake Vital Signs 05/04/23 13:36 05/04/23 13:59 Height 5 ft 9 in Weight 185 lb BMI 27.3 27.3 BP 140/80 H Blood Pressure Location Lt brachial Position Sitting Respiration 16 Pulse 70 Pulse Source Pulse Oximeter Pulse Oximetry (%) 98 Oxygen Delivery Method Room Air Intake Visit Reasons: cough and shortness of breath with exertion Allergies naproxen Allergy (Unknown, Verified 05/04/23 13:53) GI bleed NSAIDS (Non-Steroidal Anti-Inflamma Allergy (Unknown, Verified 05/04/23 13:53) GI Bleed Medication List - Last Reconciled 05/04/23 by Idalia Mullen MD albuterol sulfate 90 mcg/actuation (ProAir HFA) 2 puffs inhalation Q4-6H PRN 30 days benzonatate 100 mg PO TID famotidine 40 mg PO QAM fluticasone propionate 100 mcg/actuation (Flovent Diskus) 1 inh inhalation BID gabapentin 300 mg PO Q12H 3 months ipratropium bromide 2 sprays intranasal BID 3 months losartan 50 mg PO DAILY montelukast 10 mg PO DAILY PFSH Medical History (Updated 05/04/23 @ 13:58 by Idalia Mullen MD) COPD exacerbation Vitamin D deficiency Dyslipidemia Peripheral polyneuropathy Degenerative arthritis of cervical spine Chronic GERD Bronchial asthma Allergic rhinitis Social History Housing: House Patient Tobacco Use Status: Former Tobacco user Years Smoked: 12 e-Cigarette/Vaping Use: Never Used Current occupational status: retired Cognitive needs: No Hearing needs: No Vision needs: Yes Physical Exam Vital Signs: Last Vital Signs Pulse 70 05/04/23 13:36 Resp 16 05/04/23 13:36 BP 140/80 H 05/04/23 13:36 Pulse Ox 98 05/04/23 13:36 Oxygen Delivery Method Room Air 05/04/23 13:36 BMI result Body Mass Index 27.3 Assessment & Plan Assessment & Plan (1) COPD exacerbation: Comment: Patient has had mild bronchial asthma/COPD. Has been well controlled with use of the Flovent Diskus-100. B.i.d.. He could not get this from the pharmacy as it has been discontinued. Seen in the urgent care clinic and treated just symptom medically. Chest x-ray showed hyperinflation but no infiltrates. Code(s): J44.1 - Chronic obstructive pulmonary disease with (acute) exacerbation (2) Allergic rhinitis: Comment: CHRONIC ALLERGIC/VASOMOTOR RHINITIS. IT IS STAYING WELL CONTROLLED WITH THE CURRENT REGIMEN : Code(s): J30.9 - Allergic rhinitis, unspecified Qualifiers: Allergic rhinitis trigger: unspecified Allergic rhinitis seasonality: non-seasonal Qualified Code(s): J30.89 - Other allergic rhinitis Medications: New fluticasone propion-salmeterol 250-50 mcg/dose (Wixela Inhub) 1 inh inhalation BID 30 days 60 ea 3RF asthma/copd prednisone 20 mg PO BID 5 days 10 tabs 0RF excerbation of copd azithromycin For 250 mg dose pack: take 500 mg today (day 1), then 250 mg for 4 days (days 2-5) PO 6 tabs 0RF Quality Reporting (2019) Adult ([facility] 138/2//69) Body Mass Index: 27.3 Coding Diagnoses COPD exacerbation J44.1 Non-seasonal allergic rhinitis, unspecified trigger J30.89 Allergic rhinitis trigger: unspecified Allergic rhinitis seasonality: non-seasonal
== END 2023-05-04 13:51 | disposition home or self-care (01) ==
PROVIDERS: PCP Internal Medicine; Visit Provider Internal Medicine
DX: J44.1 Chronic obstructive pulmonary disease with (acute) exacerbation (principal); J30.89 Other allergic rhinitis
CPT/HCPCS: 99213

== ENCOUNTER → 2023-05-04 13:26 | Outpatient (BNVA) | payer MEDICARE, SELFPAY | PROVIDERS: PCP Internal Medicine; Visit Provider Internal Medicine | DX: J44.1 Chronic obstructive pulmonary disease with (acute) exacerbation (principal); J30.89 Other allergic rhinitis | CPT/HCPCS: 99212 ==

== ENCOUNTER 2023-05-15 08:35 | Outpatient (REF) | payer MEDICARE, SELFPAY ==
--- NOTE | ~2023-05-15 | FL_ITS ---
EXAMINATION: XR FLUOROSCOPY UPPER GI WITH AIR CLINICAL INFORMATION: Dysphagia. Reflux. COMPARISON: None TECHNIQUE: Fluoroscopic air contrast upper GI examination was performed utilizing standard techniques with thin and thick barium and effervescent granules. Numerous spot images were obtained. FINDINGS: Lateral cine images of the oropharynx and hypopharynx demonstrate normal swallow mechanism with normal epiglottic inversion and soft palate elevation. No tracheal penetration, glottic or subglottic aspiration identified. No nasopharyngeal reflux present. Hypopharyngeal structures appear normal without evidence of mass or diverticulum. There is mild cricopharyngeal achalasia present. Dual and single contrast images of the esophagus demonstrate a somewhat patulous esophagus. No evidence of stricture, mass, or ulcerations identified. Esophageal peristalsis is mildly disorganized in the mid and lower esophagus. Moderate-sized type I hiatal hernia is present. No significant gastroesophageal reflux was seen during the course of the examination and on reflux views. Dual contrast and single contrast images of the stomach demonstrated a normal contour. There are multiple areas of contrast pooling in the fundus and body of the stomach that may represents small superficial aphthous ulcers. No evidence of mass. Contrast freely passed into the gastric antrum and duodenal bulb without delay. Single and air-contrast images of the duodenal bulb demonstrate no abnormality. The duodenal sweep has a normal appearance, course, and mucosal fold appearance. The imaged proximal jejunum has a normal fold pattern and caliber. There are mild ventral projecting disc osteophytes at C5-C6 and C6-C7. No significant mass effect. FLUOROSCOPY TIME: 3 minutes 15 seconds Number of Spot Images: 16 Number of Cine: 8 DOSE AREA PRODUCT: 1819 uGy-m2 (microgray-meter squared) FL/FL barium swallow with air IMPRESSION: 1. Mild cricopharyngeal achalasia. 2. 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 3. Moderate size type I hiatal hernia. 4. Multiple small areas of contrast pooling in the fundus and body the stomach that may represent small superficial ulcers. Recommend correlation with EGD. This procedure was performed by Presley Wakefield PA-C, and supervised by Dr. Manning
== END 2023-05-15 08:36 | disposition home or self-care (01) ==
LOC: HO.XRAY 08:35
PROVIDERS: PCP Internal Medicine; Visit Provider Otolaryngology
DX: R13.10 Dysphagia, unspecified (principal)
CPT/HCPCS: 74220; 74221

== ENCOUNTER → 2023-05-15 08:36 | Outpatient (BNV) | payer MEDICARE, SELFPAY | PROVIDERS: PCP Internal Medicine; Visit Provider Physician Assistant Surgical | DX: R13.10 Dysphagia, unspecified (principal); K21.9 Gastro-esophageal reflux disease without esophagitis | CPT/HCPCS: 74221 ==

== ENCOUNTER 2023-07-09 07:28 | Outpatient (REF) | payer MEDICARE, SELFPAY ==
[2023-07-09 11:19] LABS: Alanine Aminotransferase 22 U/L (0-40); Anion Gap 14 (12-20); Aspartate Amino Transferase 31 U/L (5-37); Blood Urea Nitrogen 23 mg/dL (9-16); Calcium 9.7 mg/dL (8.4-10.2); Carbon Dioxide 27 mmol/L (22-29); Chloride 103 mmol/L (96-108); Cholesterol 206 mg/dL (<200); Estimated Glomerular Filt Rate 53; Glucose Fasting 94 mg/dL (60-99); HDL Cholesterol 52 mg/dL (>40); LDL Cholesterol Calculated 123 mg/dL (<100); Sodium 140 mmol/L (135-145); Triglycerides 155 mg/dL (<150)
== END 2023-07-09 07:29 | disposition home or self-care (01) ==
LOC: HO.HMGCLDS 07:28
PROVIDERS: PCP Internal Medicine; Visit Provider Internal Medicine
DX: E78.5 Hyperlipidemia, unspecified (principal); I10 Essential (primary) hypertension; E55.9 Vitamin D deficiency, unspecified
CPT/HCPCS: 36415; 80048; 80061; 82306; 84450; 84460

== ENCOUNTER 2023-07-17 08:35 | Outpatient (AMB) | payer MEDICARE, SELFPAY ==
--- NOTE | 2023-07-17 08:30 | MHC.PC.OV ---
Intake Visit Reasons: f/u labs andriod [phone] Intake Note: Pt is having a TH visit to get lab results Allergies naproxen Allergy (Unknown, Verified 07/17/23 08:46) GI bleed NSAIDS (Non-Steroidal Anti-Inflamma Allergy (Unknown, Verified 07/17/23 08:46) GI Bleed Medication List - Last Reconciled 07/17/23 by Umm Brewer MD albuterol sulfate 90 mcg/actuation (ProAir HFA) 2 puffs inhalation Q4-6H PRN 30 days famotidine 40 mg PO QAM fluticasone propion-salmeterol 250-50 mcg/dose (Wixela Inhub) 1 inh inhalation BID 90 days gabapentin 300 mg PO Q12H 3 months ipratropium bromide 2 sprays intranasal BID 3 months losartan 50 mg PO DAILY montelukast 10 mg PO DAILY Tobacco use date assessed: 07/17/23 Fall risk assessment: No Falls in past year Last assessed Fall Risk: 07/17/23 Dental Screening Dental Screen Date: 07/17/23 Did you have a dental visit in the last 12 months?: Yes Did you have a dental problem in the last 6 months where you did not have access to dental care?: No Was dental information given to patient?: Patient has dentist HPI f/u labs andriod [phone] HPI Details 82-year-old male with history of hyperlipidemia, , here today for follow-up. He has been trying to adhere to a healthy diet, walks regularly, but not on any statin. Latest fasting labs showed improvement his LDL cholesterol but triglycerides still slightly elevated as compared to last check. He also has been noticing fine tremors in both hands, on and off for the last several months. Denies any weakness, no loss of sensation, no pain, it has not been interfering with his day-to-day activities. [facility] Medical History (Updated 07/17/23 @ 09:07 by Umm Brewer MD) Herpes zoster vaccination declined Flu vaccine refused Tremor of both hands COPD exacerbation Vitamin D deficiency Dyslipidemia Peripheral polyneuropathy Degenerative arthritis of cervical spine Chronic GERD Bronchial asthma Allergic rhinitis Social History Housing: House Patient Tobacco Use Status: Former Tobacco user Years Smoked: 12 e-Cigarette/Vaping Use: Never Used Current occupational status: retired Cognitive needs: No Hearing needs: No Vision needs: Yes Questionnaire PHQ-9 Over the last 2 weeks, how often have you been bothered by any of the following problems? 1. Little interest or pleasure in doing things: not at all 2. Feeling down, depressed, or hopeless: not at all 3. Trouble falling or staying asleep, or sleeping too much: not at all 4. Feeling tired or having little energy: not at all 5. Poor appetite or overeating: not at all 6. Feeling bad about yourself - or that you are a failure or have let yourself or your family down: not at all 7. Trouble concentrating on things, such as reading the newspaper or watching television: not at all 8. Moving or speaking so slowly that other people could have noticed. Or the opposite - being so fidgety or restless that you have been moving around a lot more than usual: not at all 9. Thoughts that you would be better off or of hurting yourself in some way: not at all Total score: 0 Depression Screening Interpretation: Negative Depression Screening Done: Yes 14697 - PHQ-9 Billing: Yes Source: Developed by Drs. Chandan Loera, Aspen Marrero, Dylan Shields and colleagues, with an educational lore from [employer]. Thrive Questionnaire Date Thrive assessed: 07/17/23 I am a: Patient What is your living situation today?: I have a steady place to live Within the past 12 months, did the food you bought not last and you didn't have the money to get more?: Never true Within the past 12 months, did you worry whether your food would run out before you got money to buy more?: Never true Do you have trouble paying for medicines?: No Do you have trouble getting transportation to medical appointments?: No Do you have trouble paying your heating and electricity bill?: No Do you have trouble taking care of your child, family member or friend?: No Do you have trouble with day-to-day activities such as bathing, preparing meals, shopping, managing finances, etc.?: No Are you currently unemployed and looking for a job?: No Are you interested in more education?: No THRIVE Score: 0 AUDIT C Alcohol Use Questionnaire (AUDIT-C) 1. How often do you have a drink containing alcohol?: 2-3 times a week 2. How many drinks containing alcohol do you have on a typical day when you are drinking?: 1 or 2 3. How often do you have six or more drinks on one occasion?: Never Total Score: 3 NELLY-7 AMB Questionnaire NELLY-7 Date NELLY - 7 assessed: 07/17/23 Feeling nervous, anxious, or on edge: 0 = Not at all Not being able to stop or control worryin = Not at all Worrying too much about different things: 0 = Not at all Trouble relaxin = Not at all Being so restless that it is hard to sit still: 0 = Not at all Becoming easily annoyed or irritable: 0 = Not at all Feeling afraid as if something awful might happen: 0 = Not at all Total NELLY-7 score (0-4 normal; 5-9 mild; 10-14 moderate; 15-21 severe): 0 Source: Developed by Drs. Chandan Loera, Aspen Marrero, Dylan Shields and colleagues, with an educational lore from [employer]. NELLY-7 Assessment Billing NELLY-7 Assessment Tool: NELLY-7 Assessment 65256 Review of Systems Const All systems reviewed & are unremarkable except as noted in HPI and below Denies headache(s) and Denies weakness Eyes Reports no additional complaints ENT Denies headache(s) and Denies disequilibrium Card Reports no additional complaints Resp Reports no additional complaints GI Reports no additional complaints Reports no additional complaints Musc Reports no additional complaints and Denies numbness Skin/Breast Denies lesions and Denies rash Neuro Reports as per HPI, Denies headache(s), Denies lack of coordination, Denies focal weakness, Denies numbness, Denies disequilibrium and Denies weakness Psych Reports no additional complaints Endo Reports no additional complaints Khoi/Lymph Reports no additional complaints Aller/Immun Reports no additional complaints Physical exam (Primary Care) Tobacco/Smoking Status: Tobacco use Status Tobacco use date assessed 07/17/23 07/17/23 08:35 Patient Tobacco Use Status Former Tobacco user 07/17/23 08:35 e-Cigarette/Vaping Use Never Used 07/17/23 08:35 PHQ-9: PHQ-9 Score PHQ-9: Total score 0 07/17/23 08:47 Depression Screening Interpretation: Negative Thrive Assessment: Date of Thrive Assessment Date Thrive assessed 07/17/23 07/17/23 08:35 Telehealth Telehealth Telehealth Platform: [employer] Location of provider rendering services: practice address Location of patient: address on file Patient Identification confirmed using: Name, : Yes Telehealth method: video Patient verbally consented to treatment: Yes Patient verbally consented to billing insurance company: Yes Patient informed of any privacy concerns related to visit: Yes Minutes spent on Phone/Video with Pt.: 15 Results Reviewed Results Reviewed: Name: Sebastien Cody Age/Sex: 82/M : 1940 Unit#: [id number] Attend Dr: Umm Berwer MD Re07/09/23 Status: DEP REF Location: [facility] Disch: SPEC : [id number] BRUNA: 07/09/23 STATUS: COMP REQ : [id number] RECD: 07/09/23-[address]: Umm Brewer MD COMP: 07/09/23-1120 ENTERED: 07/09/23-[address]: ORDERED: Met Prof Fast, AST, ALT, Lipid Panel, Vitamin D 25-OH Test Result Flag Reference Sodium 140 135-145 mmol/L Potassium 4.0 3.3-5.1 mmol/L CL 103 96-108 mmol/L CO2 27 22-29 mmol/L Gap 14 12-20 BUN 23 H 9-16 mg/dL Creat 1.31 0.5-1.4 mg/dL EGFR 53 NOTE: For -Haitian individuals, multiply the result by 1.210. Chronic Kidney Disease: Estimated GFR < 60 mL/min/1.73m2 Severe Kidney Disease: Estimated GFR < 15 mL/min/1.73m2 FBS 94 60-99 mg/dL CA 9.7 8.4-10.2 mg/dL AST (GOT) 31 5-37 U/L ALT (GPT) 22 0-40 U/L Triglyceride 155 H <150 mg/dL Desirable Triglyceride: less than 150 mg/dL Borderline High Triglyceride 150-199 mg/dL High Triglyceride: 200-499 mg/dL Very High Triglyceride: greater than or equal to 5OO mg/dL Cholesterol 206 H <200 mg/dL Desirable Cholesterol: less than 200 mg/dL Borderline High Cholesterol: 200-239 mg/dL High Cholesterol: greater than 239 mg/dL LDL Calculated 123 H <100 mg/dL Desirable LDL: less than 100 mg/dL Near Optimal/Above Optimal LDL: 110-129 mg/dL Borderline High LDL: 130-159 mg/dL High LDL: 160-189 mg/dL Very High LDL: greater than or equal to 190 mg/dL HDL 52 >40 mg/dL Desirable HDL: greater than 40 mg/dL Note: This HDL assay may give artificially low results in patients with liver disease. Vit D 25-OH Tot 79.0 >30 ng/mL Health Based Reference Values* < 20 ng/mL Deficient 20-30 ng/mL Insufficient > 30 ng/mL Sufficient Assessment and Plan Assessment & Plan (1) Dyslipidemia: Code(s): E78.5 - Hyperlipidemia, unspecified Plan: Reviewed recent fasting lipid profile with patient with improvement in LDL cholesterol and total cholesterol but triglycerides slightly higher than last check. Reinforced importance of adhering to a low-cholesterol diet cut back on eating a lot of shellfish, and get at least 30 minutes regular exercise 4 times a week. Advised patient to make healthy food choices, eat more fruits, vegetables, whole grains, wild caught fish and low-fat dairy. Limit amount of meat and fried or fatty food products, as well as processed foods and fast foods. Follow-up scheduled with repeat fasting lipid panel in 01/2024 prior to next visit. (2) Tremor of both hands: Code(s): R25.1 - Tremor, unspecified Plan: Referral to neurology for further evaluation management (3) Flu vaccine refused: Code(s): Z28.21 - Immunization not carried out because of patient refusal (4) Herpes zoster vaccination declined: Code(s): Z28.21 - Immunization not carried out because of patient refusal Orders: Orders Basic Metabolic Panel Fasting 01/01/24 E55.9 - Vitamin D deficiency, unspecified, E78.5 - Hyperlipidemia, unspecified, I10 - Essential (primary) hypertension Alanine Aminotransferase 01/01/24 E55.9 - Vitamin D deficiency, unspecified, E78.5 - Hyperlipidemia, unspecified, I10 - Essential (primary) hypertension Aspartate Amino Transferase 01/01/24 E55.9 - Vitamin D deficiency, unspecified, E78.5 - Hyperlipidemia, unspecified, I10 - Essential (primary) hypertension Lipid Panel 01/01/24 E55.9 - Vitamin D deficiency, unspecified, E78.5 - Hyperlipidemia, unspecified, I10 - Essential (primary) hypertension Vitamin D 25-OH Total 01/01/24 E55.9 - Vitamin D deficiency, unspecified, E78.5 - Hyperlipidemia, unspecified, I10 - Essential (primary) hypertension Referrals Neurology Referral R25.1 - Tremor, unspecified Coding Level of Care Code Tele Est Pt Level 4 (29245) Diagnoses Dyslipidemia E78.5 Tremor of both hands R25.1 Flu vaccine refused Z28.21 Herpes zoster vaccination declined Z28.21 Additional Codes NELLY-7 Assessment Billing - NELLY-7 Assessment Tool: NELLY-7 Assessment 04228 ([id number])
== END 2023-07-17 13:59 | disposition home or self-care (01) ==
LOC: HO.HMGC 08:35
PROVIDERS: PCP Internal Medicine; Visit Provider Internal Medicine
DX: E78.5 Hyperlipidemia, unspecified (principal); R25.1 Tremor, unspecified
CPT/HCPCS: 99214

== ENCOUNTER 2023-07-24 10:41 | Outpatient (AMB) | payer MEDICARE, SELFPAY ==
--- NOTE | 2023-07-24 11:00 | MHC.OFFVIS ---
Vital Signs 07/24/23 11:08 Height 5 ft 9 in Weight 180 lb 8 oz BMI 26.7 BP 124/82 Blood Pressure Location Lt brachial Position Sitting Pulse 76 Pulse Source Pulse Oximeter Pulse Oximetry (%) 98 Oxygen Delivery Method Room Air Intake Visit Reasons: INP: Tremors - Confirmed Intake Note: Patient presents for tremors. When hands are having tremors I'm having difficulty eating and I dropped objects. Allergies naproxen Allergy (Unknown, Verified 07/24/23 11:07) GI bleed NSAIDS (Non-Steroidal Anti-Inflamma Allergy (Unknown, Verified 07/24/23 11:07) GI Bleed Medication List - Last Reconciled 07/24/23 by Ciara Roth MD albuterol sulfate 90 mcg/actuation (ProAir HFA) 2 puffs inhalation Q4-6H PRN 30 days famotidine 40 mg PO QAM fluticasone propion-salmeterol 250-50 mcg/dose (Wixela Inhub) 1 inh inhalation BID 90 days gabapentin 300 mg PO Q12H 3 months ipratropium bromide 2 sprays intranasal BID 3 months losartan 50 mg PO DAILY montelukast 10 mg PO DAILY HPI Comments Details: 82y/o Right handed male comes for evaluation of tremors. He started noticing tremor sin his hands about 6 mths ago. It is intermittent and mild worse when he is eating or doing movements that needs fine motor coordination.The tremors are mostly with action The tremors are worse with anxiety stress or any fine movements. His is concerned. he denies voice tremors or head tremors He is not sure if alcohol helps.He denies family history His handwriting was always poor and not sure it worsened. [facility] Medical History (Updated 07/24/23 @ 11:31 by Ciara Roth MD) Action tremor Herpes zoster vaccination declined Flu vaccine refused Tremor of both hands COPD exacerbation Vitamin D deficiency Dyslipidemia Peripheral polyneuropathy Degenerative arthritis of cervical spine Chronic GERD Bronchial asthma Allergic rhinitis Social History Housing: House Patient Tobacco Use Status: Former Tobacco user Years Smoked: 12 e-Cigarette/Vaping Use: Never Used Current occupational status: retired Cognitive needs: No Hearing needs: No Vision needs: Yes Physical Exam Vital Signs: Last Vital Signs Pulse 76 07/24/23 11:08 BP 124/82 07/24/23 11:08 Pulse Ox 98 07/24/23 11:08 Oxygen Delivery Method Room Air 07/24/23 11:08 BMI result Body Mass Index 26.7 Const Orientation/consciousness: patient oriented x3 Eyes Pupils: Equal, round and reactive pupils present Neuro Other: mild action and postural tremors yolanda UE Mild voice tremors He was able to dram archimedes spiral Right was normal Left- midl tremors General: patient oriented x3, gait normal, tone normal, moves all extremities and no focal motor deficits Cranial nerves: Yes Equal, round and reactive pupils present, Yes Bilaterally intact EOM present, Yes Nystagmus not present, Yes Normal facial strength present, Yes Midline tongue present and Yes Ability to bilaterally elevate shoulders present Cognition (Neuro): normal cognition Gait exam (Neuro): Normal gait present Motor exam (neuro): 5/5 motor strength present throughout and Normal motor muscle tone present throughout Deep tendon reflexes (DTR's): Right triceps reflex intensity grade: 1+, Left triceps reflex intensity grade: 1+, Rt Biceps (C5, C6): 1+, Left biceps reflex intensity grade: 1+, Right brachioradialis reflex intensity grade: 1+, Left brachioradialis reflex intensity grade: 1+, Right patellar reflex intensity grade: 1+ and Left patellar reflex intensity grade: 1+ Coordination: [id number] test normal Assessment & Plan Assessment & Plan (1) Action tremor: Comment: senile , essential tremors - mild Code(s): G25.2 - Other specified forms of tremor Category: Medical Plan No evidence of parkinsons disease on todays visit I suggested adaptive utensils - weighted spoons forks to help with his tremors Hand exercises will hold off on medications as his tremors are mild and does not affect his ADLs. Coding Level of Care Code New Pt Level 3 (22106) Diagnoses Action tremor G25.2
[2023-07-24 11:08] VITALS: BP 124/82; PULSE 76; O2SAT 98; BMI 26.7
== END 2023-07-24 11:43 | disposition home or self-care (01) ==
PROVIDERS: PCP Internal Medicine; Visit Provider Psychiatry & Neurology Neurology
DX: G25.2 Other specified forms of tremor (principal)
CPT/HCPCS: 99203

== ENCOUNTER → 2023-07-24 10:41 | Outpatient (BNVA) | payer MEDICARE, SELFPAY | PROVIDERS: PCP Internal Medicine; Visit Provider Psychiatry & Neurology Neurology | DX: G25.2 Other specified forms of tremor (principal) | CPT/HCPCS: 99202 ==

== ENCOUNTER 2023-11-16 09:43 | Outpatient (AMB) | payer MEDICARE, SELFPAY ==
[2023-11-16 09:45] VITALS: BP 108/58; PULSE 55; O2SAT 98; BMI 26.6
--- NOTE | 2023-11-16 09:45 | A.OFFVIS_ITS ---
Vital Signs 11/16/23 09:45 Height 5 ft 9 in Weight 180 lb BMI 26.6 BP 108/58 L Blood Pressure Location Lt brachial Position Sitting Pulse 55 Pulse Source Doppler Pulse Oximetry (%) 98 Oxygen Delivery Method Room Air Intake Visit Reasons: Shortness of breath Intake Note: Patient is here to follow up on SOB, Patient stated he's been feeling more winded on exertion. Patient requesting ProAir refill. Allergies naproxen Allergy (Unknown, Verified 11/16/23 09:53) GI bleed NSAIDS (Non-Steroidal Anti-Inflamma Allergy (Unknown, Verified 11/16/23 09:53) GI Bleed Medication List - Last Reconciled 11/16/23 by Idalia Mullen MD albuterol sulfate 90 mcg/actuation (ProAir HFA) 2 puffs inhalation Q4-6H PRN 30 days famotidine 40 mg PO QAM fluticasone propion-salmeterol 250-50 mcg/dose (Wixela Inhub) 1 inh inhalation BID 90 days gabapentin 300 mg PO Q12H 3 months ipratropium bromide 2 sprays intranasal BID 3 months losartan 50 mg PO DAILY montelukast 10 mg PO DAILY HPI HPI Shortness of breath: Details: Myra is now 83 years old gentleman, comes after 6 months for his regular follow- up for ongoing cough and nasal allergies. He claims that he is doing very well with the current combination of meds, and the only thing that he notices is that he gets little more short of breath on his usual level of physical activities. But he still remains very active. Cough is not much, and only occasional hacking. He remains somewhat hoarse especially in the morning and as the days goes on and he talks it all clears up. He has been using Wixela 250-50 twice a day regularly and hardly needs to use the rescue inhaler. [facility] Medical History (Updated 11/16/23 @ 10:31 by Idalia Mullen MD) Dyspnea on exertion Action tremor Herpes zoster vaccination declined Flu vaccine refused Tremor of both hands COPD exacerbation Vitamin D deficiency Dyslipidemia Peripheral polyneuropathy Degenerative arthritis of cervical spine Chronic GERD Bronchial asthma Allergic rhinitis Social History Housing: House Patient Tobacco Use Status: Former Tobacco user Years Smoked: 12 e-Cigarette/Vaping Use: Never Used Current occupational status: retired Cognitive needs: No Hearing needs: No Vision needs: Yes Review of Systems Const All systems reviewed & are unremarkable except as noted in HPI and below Eyes Reports no additional complaints ENT Reports nasal discharge (Off and on) Card Reports no additional complaints Resp Reports as per HPI GI Reports no additional complaints Reports no additional complaints Musc Reports no additional complaints Skin/Breast Reports system reviewed and no additional complaints, except as documented Neuro Reports no additional complaints Psych Reports no additional complaints Physical Exam Vital Signs: Last Vital Signs Pulse 55 11/16/23 09:45 BP 108/58 L 11/16/23 09:45 Pulse Ox 98 11/16/23 09:45 Oxygen Delivery Method Room Air 11/16/23 09:45 BMI result Body Mass Index 26.6 Const General: healthy appearing, comfortable, no acute distress, alert and awake Orientation/consciousness: patient oriented x3 HEENT Head: Yes normal to inspection General nose exam: No nasal polyps present and No nasal discharge present Face and sinus: Yes sinuses nontender Mouth: oropharynx normal Throat: Yes posterior oropharynx normal Eyes General: appearance normal, both eyes and all related structures Neck Neck: Yes normal visual inspection, Yes no lymphadenopathy, Yes trachea midline and Yes no JVD Thyroid: Thyroid normal Chest Chest palpation & inspection: normal inspection of the chest and no tenderness Resp Other: Percussion note is resonant, breath sounds are slightly distant with prolonged expiratory phase. No audible wheezes or rhonchi. Effort & Inspection: normal respiratory effort Auscultation: no crackles, no rhonchi and no wheezes Percussion: percussion normal Cardio Palpation: normal PMI Rate: regular rate Rhythm: regular rhythm Heart sounds: no gallops and no murmurs Peripheral pulses: Peripheral pulses 2+ throughout GI Palpation (GI): Soft to palpation, nontender, No hepatosplenomegaly present and no masses Auscultation: normal bowel sounds Back/Spine/Pelvis Thoracic/Lumbar Spine: thoracic and lumbar spine normal to inspection Skin General skin exam: no rashes or lesions noted Neuro General: patient oriented x3 and no focal motor deficits Cranial nerves: Yes CN's II-XII intact bilaterally Extrem General: Yes normal to inspection, Yes no clubbing, cyanosis or edema and Yes no calf tenderness Psych Appearance: grossly normal and well kempt Speech and movement: Normal speech and movement present Office Procedures Spirometry Testing Spirometry Comments: Spirometry done in the office, Dr. Mullen has the results. results scanned to his chart. 99115- Spirometry Results Reviewed Results Reviewed: SPIROMETRY FVC FEV1 FEVI/FVC FEF 25-75 11/19/21 89 % 91 % 76 102 cresencio 11/15/23 89 93 77 111 normal Assessment & Plan Assessment & Plan (1) Bronchial asthma: Comment: HIS BRONCHIAL ASTHMA IS, MORE COUGH VARIANT, AND IS WELL CONTROLLED . IS SYMPTOMS GET LITTLE WORSE USUALLY AT THE CHANGE OF THE WEATHER. AT PRESENT HE HAS VERY LITTLE COUGH OR WHEEZING. Code(s): J45.909 - Unspecified asthma, uncomplicated Category: Medical Plan: TX: CONTINUE WIXELA 250-50 , USE 1 INHALATION ONLY ONCE A DAY, LONG SYMPTOMS ARE UNDER CONTROL AND GO BACK TO TWICE A DAY IF ANY RECURRENCE OF INCREASED COUGH OR WHEEZING.. ALBUTEROL MDI 2 PUFFS Q 4-6 HOURS P.R.N. IF THERE IS SUSTAINED COUGH OR ANY WHEEZING. (2) Allergic rhinitis: Comment: CHRONIC ALLERGIC/VASOMOTOR RHINITIS. IT IS STAYING WELL CONTROLLED WITH THE CURRENT REGIMEN : Code(s): J30.9 - Allergic rhinitis, unspecified Category: Medical Qualifiers: Allergic rhinitis seasonality: non-seasonal Allergic rhinitis trigger: unspecified Qualified Code(s): J30.89 - Other allergic rhinitis Plan: CONTINUE MONTELUKAST 10 MG DAILY. USE IPRATROPIUM NASAL SPRAY 2 SPRAY INTRANASAL B.I.D. P.R.N. (3) Dyspnea on exertion: Comment: TODAY HE COMPLAINS OF SLIGHTLY INCREASED SHORTNESS OF BREATH ON HIS USUAL WALKING OUTDOORS OR CLIMBING STAIRS. THIS IS WITHOUT ANY CHEST TIGHTNESS, PAIN OR WHEEZING. Code(s): R06.09 - Other forms of dyspnea Category: Medical Plan: I SHOWED HIM THE RESULTS OF HIS CURRENT SPIROMETRY WHICH IS ESSENTIALLY NORMAL. AND TOLD HIM THAT DYSPNEA ON HIS NORMAL DAILY EXERTION IS PROBABLY CONSTITUTIONAL. HE SHOULD CONTINUE TO DO DAILY MAINTENANCE WALKING, . AND BREATHING EXERCISES Orders: Orders AMB Spirometry Testing Today J44.9 - Chronic obstructive pulmonary disease, unspecified Medications: Changed From albuterol sulfate 90 mcg/actuation (ProAir HFA) 2 puffs inhalation Q4-6H 30 days PRN 8.5 grams 1RF shortness of breath or wheezing To albuterol sulfate 90 mcg/actuation 2 puffs inhalation Q4-6H 30 days PRN 8.5 grams 3RF shortness of breath or wheezing Coding Level of Care Code Est Pt Level 3 (40357) Diagnoses Bronchial asthma J45.909 Non-seasonal allergic rhinitis, unspecified trigger J30.89 Allergic rhinitis seasonality: non-seasonal Allergic rhinitis trigger: unspecified Dyspnea on exertion R06.09 CPT Codes Spirometry - CPT: 69481- Spirometry ([id number])
== END 2023-11-16 10:15 | disposition home or self-care (01) ==
PROVIDERS: PCP Internal Medicine; Visit Provider Internal Medicine
DX: J45.909 Unspecified asthma, uncomplicated (principal); J30.89 Other allergic rhinitis; R06.09 Other forms of dyspnea
CPT/HCPCS: 94010; 99213

== ENCOUNTER → 2023-11-16 09:43 | Outpatient (BNVA) | payer MEDICARE, SELFPAY | PROVIDERS: PCP Internal Medicine; Visit Provider Internal Medicine | DX: J44.9 Chronic obstructive pulmonary disease, unspecified (principal); J30.89 Other allergic rhinitis; R06.09 Other forms of dyspnea; Z87.891 Personal history of nicotine dependence | CPT/HCPCS: 94010; 99212 ==

== ENCOUNTER 2023-12-30 06:34 | Outpatient (REF) | payer MEDICARE, SELFPAY ==
[2023-12-30 12:16] LABS: Alanine Aminotransferase 28 U/L (0-40); Anion Gap 17 (12-20); Aspartate Amino Transferase 47 U/L (5-37); Blood Urea Nitrogen 21 mg/dL (9-16); Calcium 9.8 mg/dL (8.4-10.2); Carbon Dioxide 25 mmol/L (22-29); Chloride 103 mmol/L (96-108); Cholesterol 219 mg/dL (<200); Estimated Glomerular Filt Rate 45; Glucose Fasting 96 mg/dL (60-99); HDL Cholesterol 54 mg/dL (>40); LDL Cholesterol Calculated 136 mg/dL (<100); Potassium 3.9 mmol/L (3.3-5.1); Sodium 141 mmol/L (135-145); Triglycerides 145 mg/dL (<150)
[2023-12-30 12:55] LABS: Vitamin D 25-OH Total 114.3 ng/mL (>30)
== END 2023-12-30 06:35 | disposition home or self-care (01) ==
LOC: HO.HMGCLDS 06:34
PROVIDERS: PCP Internal Medicine; Visit Provider Internal Medicine
DX: E78.5 Hyperlipidemia, unspecified (principal); I10 Essential (primary) hypertension; E55.9 Vitamin D deficiency, unspecified
CPT/HCPCS: 36415; 80048; 80061; 82306; 84450; 84460

== ENCOUNTER 2024-01-06 16:14 | Outpatient (AMB) | payer MEDICARE, SELFPAY ==
[2024-01-06 16:17] VITALS: BP 138/70; PULSE 72; O2SAT 97; BMI 27.2
--- NOTE | 2024-01-06 16:17 | MHC.PC.OV ---
Vital Signs 01/06/24 16:17 Height 5 ft 9 in Weight 184 lb 8 oz BMI 27.2 BP 138/70 Blood Pressure Location Rt brachial Position Sitting Pulse 72 Pulse Source Pulse Oximeter Pulse Oximetry (%) 97 Intake Visit Reasons: PE Intake Note: pt is here for PE Compensation Consultant Required: No Allergies naproxen Allergy (Unknown, Verified 01/06/24 16:17) GI bleed NSAIDS (Non-Steroidal Anti-Inflamma Allergy (Unknown, Verified 01/06/24 16:17) GI Bleed Medication List - Last Reconciled 01/06/24 by Chayo Arguello NP albuterol sulfate 90 mcg/actuation 2 puffs inhalation Q4-6H PRN 90 days famotidine 40 mg PO QAM fluticasone propion-salmeterol 250-50 mcg/dose (Wixela Inhub) 1 inh inhalation BID 90 days gabapentin 300 mg PO Q12H 3 months ipratropium bromide 2 sprays intranasal BID 3 months losartan 50 mg PO DAILY montelukast 10 mg PO DAILY Tobacco use date assessed: 07/17/23 Fall risk assessment: No Falls in past year Last assessed Fall Risk: 01/06/24 Dental Screening Dental Screen Date: 07/17/23 HPI HPI Comments History of Present Illness Details 83 y/o male patient who presents to the clinic today for PE. Patient of Dr. Brewer. Omhx significant for HTN, COPD, Dyslipidemia and GERD. No concerns today. [facility] Medical History Dyspnea on exertion Action tremor Herpes zoster vaccination declined Flu vaccine refused Tremor of both hands COPD exacerbation Vitamin D deficiency Dyslipidemia Peripheral polyneuropathy Degenerative arthritis of cervical spine Chronic GERD Bronchial asthma Allergic rhinitis Social History Housing: House Patient Tobacco Use Status: Former Tobacco user Years Smoked: 12 e-Cigarette/Vaping Use: Never Used Current occupational status: retired Cognitive needs: No Hearing needs: No Vision needs: Yes Questionnaire Thrive Questionnaire Date Thrive assessed: 01/06/24 I am a: Patient What is your living situation today?: I have a steady place to live Within the past 12 months, did the food you bought not last and you didn't have the money to get more?: Never true Within the past 12 months, did you worry whether your food would run out before you got money to buy more?: Never true Do you have trouble paying for medicines?: No Do you have trouble getting transportation to medical appointments?: No Do you have trouble paying your heating and electricity bill?: Yes Do you have trouble taking care of your child, family member or friend?: No Do you have trouble with day-to-day activities such as bathing, preparing meals, shopping, managing finances, etc.?: No Are you currently unemployed and looking for a job?: No Are you interested in more education?: No Please select the resources that you would like help with: None Currently or been in a relationship where the following occur: No concerns reported THRIVE Score: 1 AUDIT C Alcohol Use Questionnaire (AUDIT-C) 1. How often do you have a drink containing alcohol?: 2-4 times a month 2. How many drinks containing alcohol do you have on a typical day when you are drinking?: 1 or 2 3. How often do you have six or more drinks on one occasion?: Never Total Score: 2 Score Reviewed/Action Taken: Yes NELLY-7 AMB Questionnaire NELLY-7 Date NELLY - 7 assessed: 01/06/24 Feeling nervous, anxious, or on edge: 0 = Not at all Not being able to stop or control worryin = Not at all Worrying too much about different things: 0 = Not at all Trouble relaxin = Not at all Being so restless that it is hard to sit still: 0 = Not at all Becoming easily annoyed or irritable: 0 = Not at all Feeling afraid as if something awful might happen: 0 = Not at all Total NELLY-7 score (0-4 normal; 5-9 mild; 10-14 moderate; 15-21 severe): 0 Source: Developed by Drs. Chandan Loera, Aspen Marrero, Dylan Shields and colleagues, with an educational lore from [employer]. NELLY-7 Assessment Billing NELLY-7 Assessment Tool: NELLY-7 Assessment 97458 Review of Systems Const All systems reviewed & are unremarkable except as noted in HPI and below Physical exam (Primary Care) Vital Signs: Last Vital Signs Pulse 72 01/06/24 16:17 BP 138/70 01/06/24 16:17 Pulse Ox 97 11/06/24 16:17 BMI result Body Mass Index 27.2 Tobacco/Smoking Status: Tobacco use Status Tobacco use date assessed 07/17/23 01/06/24 16:18 Patient Tobacco Use Status Former Tobacco user 01/06/24 16:18 e-Cigarette/Vaping Use Never Used 01/06/24 16:18 Thrive Assessment: Date of Thrive Assessment Date Thrive assessed 01/06/24 01/06/24 16:18 Currently or been in a relationship where the following occur: No concerns reported Const General: cooperative, comfortable and no acute distress Orientation/consciousness: patient oriented x3 HENMT Head: Yes normocephalic Ears: external ears normal and TM's normal bilaterally General nose exam: Normal external nose present Face and sinus: Yes sinuses nontender Mouth: moist mucous membranes Throat: Yes posterior oropharynx normal Eyes Pupils: Equal, round and reactive pupils present EOM: EOMs intact bilaterally Direct Ophthalmoscopy: normal light reflex Neck Neck: Yes full ROM and Yes no lymphadenopathy Resp Effort & Inspection: normal respiratory effort and able to speak in complete sentences Auscultation: clear to auscultation bilaterally, no crackles, no rales, no rhonchi and no wheezes Cardio Heart sounds: S1 normal heart sound present and S2 normal heart sound present GI Inspection: Yes Abdominal panniculus present Palpation (GI): Soft to palpation, not firm, nontender, no guarding, not rigid and No hepatosplenomegaly present Auscultation: normal bowel sounds Rectal Exam - Male: Yes deferred General: Yes no CVA tenderness and Yes deferred Back/Spine/Pelvis Back: no CVA tenderness and No back tenderness Skin General skin exam: no rashes or lesions noted Neuro Other: Mild Trevors of upper extremities. General: patient oriented x3, gait normal and moves all extremities Cranial nerves: Yes Equal, round and reactive pupils present, Yes Bilaterally intact EOM present and Yes Midline tongue present Motor exam (neuro): 5/5 motor strength present throughout and Tremors during motor activity present (B/L upper extremities) Extrem General: Yes full ROM and Yes capillary refill normal Psych Speech and movement: Normal speech and movement present Coding Level of Care Code Est Pt Prev Care >65y(09891) Diagnoses Encounter for routine adult health examination without abnormal findings Z00.00 COPD exacerbation J44.1 Dyslipidemia E78.5 Vitamin D deficiency E55.9 Chronic GERD K21.9 Primary hypertension I10 Hypertension type: primary hypertension Additional Codes NELLY-7 Assessment Billing - NELLY-7 Assessment Tool: NELLY-7 Assessment 36266 ([id number]) Assessment & Plan Assessment & Plan (1) Encounter for routine adult health examination without abnormal findings: Code(s): Z00.00 - Encounter for general adult medical examination without abnormal findings Plan: MIld tremors Upper Extremities. (2) COPD exacerbation: Code(s): J44.1 - Chronic obstructive pulmonary disease with (acute) exacerbation Category: Medical Plan: Well controlled on current regiment. (3) Dyslipidemia: Code(s): E78.5 - Hyperlipidemia, unspecified Category: Medical Plan: Discussed Statins. Pt wants to try Lifestyle changes, weight management and healthy diet. Will f/u with PCP on this issue. (4) Vitamin D deficiency: Code(s): E55.9 - Vitamin D deficiency, unspecified Category: Medical Plan: Well controlled on current regiment. (5) Chronic GERD: Code(s): K21.9 - Gastro-esophageal reflux disease without esophagitis Category: Medical Plan: Well controlled on current regiment. (6) Hypertension: Code(s): I10 - Essential (primary) hypertension Category: Medical Qualifiers: Hypertension type: primary hypertension Qualified Code(s): I10 - Essential (primary) hypertension Plan: Well controlled on current regiment.
== END 2024-01-06 17:09 | disposition home or self-care (01) ==
LOC: HO.HMCC 16:15
PROVIDERS: PCP Internal Medicine; Visit Provider Nurse Practitioner Family
DX: Z00.00 Encounter for general adult medical examination without abnormal findings (principal); J44.1 Chronic obstructive pulmonary disease with (acute) exacerbation; E78.5 Hyperlipidemia, unspecified; E55.9 Vitamin D deficiency, unspecified; K21.9 Gastro-esophageal reflux disease without esophagitis; I10 Essential (primary) hypertension

== ENCOUNTER → 2024-01-06 16:14 | Outpatient (BNVA) | payer MEDICARE, SELFPAY | PROVIDERS: PCP Internal Medicine; Visit Provider Nurse Practitioner Family | DX: Z00.00 Encounter for general adult medical examination without abnormal findings (principal); J44.1 Chronic obstructive pulmonary disease with (acute) exacerbation; E78.5 Hyperlipidemia, unspecified; E55.9 Vitamin D deficiency, unspecified; K21.9 Gastro-esophageal reflux disease without esophagitis; I10 Essential (primary) hypertension | CPT/HCPCS: 96127; 99397 ==

== ENCOUNTER 2024-02-03 09:10 | Outpatient (AMB) | payer MEDICARE, SELFPAY ==
[2024-02-03 09:15] VITALS: BMI 27.2
--- NOTE | 2024-02-03 09:15 | A.OFFVIS_ITS ---
Vital Signs 02/03/24 09:15 Height 5 ft 9 in Weight 184 lb BMI 27.2 Intake Visit Reasons: follow up Tremors Intake Note: Patient presents for follow up tremors Allergies naproxen Allergy (Unknown, Verified 02/03/24 09:17) GI bleed NSAIDS (Non-Steroidal Anti-Inflamma Allergy (Unknown, Verified 02/03/24 09:17) GI Bleed Medication List - Last Reconciled 02/03/24 by Ciara Roth MD albuterol sulfate 90 mcg/actuation 2 puffs inhalation Q4-6H PRN 90 days famotidine 40 mg PO QAM fluticasone propion-salmeterol 250-50 mcg/dose (Wixela Inhub) 1 inh inhalation BID 90 days gabapentin 300 mg PO Q12H 3 months ipratropium bromide 2 sprays intranasal BID 3 months losartan 50 mg PO DAILY montelukast 10 mg PO DAILY HPI Comments Details: 83y/o Right handed male comes for follow up of tremors. He denies nay worsening and is independent in all his ADLs. History form initial visit-He started noticing tremors in his hands about 6 mths ago. It is intermittent and mild worse when he is eating or doing movements that needs fine motor coordination.The tremors are mostly with action The tremors are worse with anxiety stress or any fine movements. His is concerned. he denies voice tremors or head tremors He is not sure if alcohol helps.He denies family history His handwriting was always poor and not sure it worsened. [facility] Medical History Dyspnea on exertion Action tremor Herpes zoster vaccination declined Flu vaccine refused Tremor of both hands COPD exacerbation Vitamin D deficiency Dyslipidemia Peripheral polyneuropathy Degenerative arthritis of cervical spine Chronic GERD Bronchial asthma Allergic rhinitis Social History Housing: House Patient Tobacco Use Status: Former Tobacco user Years Smoked: 12 e-Cigarette/Vaping Use: Never Used Current occupational status: retired Cognitive needs: No Hearing needs: No Vision needs: Yes Physical Exam Vital Signs: BMI result Body Mass Index 27.2 Const Orientation/consciousness: patient oriented x3 Eyes Pupils: Equal, round and reactive pupils present Neuro Other: mild action and postural tremors yolanda UE Mild voice tremors He was able to draw archimedes spiral Right was normal Left- mild tremors General: patient oriented x3, gait normal, tone normal, moves all extremities and no focal motor deficits Cranial nerves: Yes Equal, round and reactive pupils present, Yes Bilaterally intact EOM present, Yes Nystagmus not present, Yes Normal facial strength present, Yes Midline tongue present and Yes Ability to bilaterally elevate shoulders present Cognition (Neuro): normal cognition Gait exam (Neuro): Normal gait present Motor exam (neuro): 5/5 motor strength present throughout and Normal motor muscle tone present throughout Coordination: [id number] test normal Assessment & Plan Assessment & Plan (1) Action tremor: Comment: senile , essential tremors - mild Code(s): G25.2 - Other specified forms of tremor Category: Medical Plan No evidence of parkinsons disease on todays visit Continue using adaptive utensils - weighted spoons forks to help with his tremors Hand exercises will hold off on medications as his tremors are mild and does not affect his ADLs. Coding Level of Care Code Est Pt Level 4 (63107) Diagnoses Action tremor G25.2
== END 2024-02-03 09:44 | disposition home or self-care (01) ==
PROVIDERS: PCP Internal Medicine; Visit Provider Psychiatry & Neurology Neurology
DX: G25.2 Other specified forms of tremor (principal)
CPT/HCPCS: 99214

== ENCOUNTER → 2024-02-03 09:10 | Outpatient (BNVA) | payer MEDICARE, SELFPAY | PROVIDERS: PCP Internal Medicine; Visit Provider Psychiatry & Neurology Neurology | DX: G25.2 Other specified forms of tremor (principal) | CPT/HCPCS: 99212 ==

== ENCOUNTER 2024-03-17 09:46 | Outpatient (AMB) | payer MEDICARE, SELFPAY ==
[2024-03-17 11:07] VITALS: BP 106/68; PULSE 72; TEMP 36.7; O2SAT 97; BMI 27.2
--- NOTE | 2024-03-17 11:07 | MHC.OFFWIV ---
Intake Vital Signs 03/17/24 11:07 Height 5 ft 9 in Weight 184 lb BMI 27.2 BP 106/68 Blood Pressure Location Lt brachial Position Sitting Pulse 72 Pulse Source Pulse Oximeter Temp 98.0 F Temp Source Oral Pulse Oximetry (%) 97 Oxygen Delivery Method Room Air Intake Visit Reasons: EP-sore throat, sob, cough, running nose Intake Note: Pt is here today for a walk in visit. Pt c/o cough, runny nose, sob for 4 days. Pt had covid test done at home and it was negative. Patient Tobacco Use Status: Former Tobacco user Allergies naproxen Allergy (Unknown, Verified 03/17/24 11:09) GI bleed NSAIDS (Non-Steroidal Anti-Inflamma Allergy (Unknown, Verified 03/17/24 11:09) GI Bleed HPI HPI Comments History of Present Illness Details History - The patient is an 83-year-old male presenting with acute cough. - Symptom onset was reported as last Thursday, with a background of bronchial asthma. - Management includes Wixella, ipratropium bromide, montelukast, and an albuterol inhaler. - Symptoms experienced include occasional breath shortness and mild sinus discomfort without fever. - Recent exacerbation induced by exertion (shoveling snow) required albuterol use. - Negative home COVID test reported by the patient. - Denies fevers, sob or wheezing, sinus pain or ear pain or headaches Physical Exam General: Cooperative, healthy appearing, comfortable and no acute distress Orientation/consciousness: Patient oriented x3 Limitations: Patient has learned to accept limits due to asthma Head: Normal to inspection Ears: Hearing grossly normal bilaterally, external ears normal, TM's with cerumen bilaterally Nose: Normal external nose present, Normal nares present and No nasal discharge present Face and sinus: Normal facial exam and Yes sinuses nontender Mouth: Normal oral and palatal mucosa present and moist mucous membranes Throat: Yes tonsils normal, Yes uvula midline. Posterior oropharynx erythema, no exudates Eyes: Appearance normal, both eyes and all related structures Neck: Normal visual inspection Respiratory: Clear to auscultation bilaterally. Normal respiratory effort, able to speak in complete sentences, Actively coughing, no respiratory distress, not tachypneic, no tripod positioning and no use of accessory muscles. Cardiovascular: Regular rate and rhythm. Normal S1 and S2 Skin: No rashes or lesions noted Neuro: Patient oriented x3 Extremities: Normal to inspection and Yes no clubbing, cyanosis or edema [facility] Medical History Dyspnea on exertion Action tremor Herpes zoster vaccination declined Flu vaccine refused Tremor of both hands COPD exacerbation Vitamin D deficiency Dyslipidemia Peripheral polyneuropathy Degenerative arthritis of cervical spine Chronic GERD Bronchial asthma Allergic rhinitis Social History Housing: House Patient Tobacco Use Status: Former Tobacco user Years Smoked: 12 e-Cigarette/Vaping Use: Never Used Current occupational status: retired Cognitive needs: No Hearing needs: No Vision needs: Yes Review of Systems Const All systems reviewed & are unremarkable except as noted in HPI and below Physical Exam Vital Signs: Last Vital Signs Temp 98.0 F 03/17/24 11:07 Pulse 72 03/17/24 11:07 BP 106/68 03/17/24 11:07 Pulse Ox 97 03/17/24 11:07 Oxygen Delivery Method Room Air 03/17/24 11:07 BMI result Body Mass Index 27.2 Const General: cooperative, healthy appearing, comfortable and no acute distress Orientation/consciousness: patient oriented x3 Limitations: no limitations HEENT Head: Yes normal to inspection Ears: hearing grossly normal bilaterally, external ears normal and TM's normal bilaterally General nose exam: Normal external nose present, Normal nares present and No nasal discharge present Face and sinus: Yes normal facial exam and Yes sinuses nontender Mouth: Normal oral and palatal mucosa present and moist mucous membranes Throat: Yes tonsils normal, Yes uvula midline and Yes posterior oropharynx abnormal (Erythema) Eyes General: appearance normal, both eyes and all related structures Neck Neck: Yes normal visual inspection Resp Effort & Inspection: normal respiratory effort, able to speak in complete sentences, no respiratory distress, not tachypneic, no tripod positioning and no use of accessory muscles Auscultation: clear to auscultation bilaterally Cardio Rate: regular rate Rhythm: regular rhythm Heart sounds: normal S1 and S2 Skin General skin exam: no rashes or lesions noted Neuro General: patient oriented x3 Extrem General: Yes normal to inspection and Yes no clubbing, cyanosis or edema Assessment & Plan Assessment & Plan (1) Lower respiratory infection (e.g., bronchitis, pneumonia, pneumonitis, pulmonitis): Code(s): J22 - Unspecified acute lower respiratory infection Plan: A chest x-ray is advised to rule out pneumonia, given the patient's age and asthma history. A flu, COVID-19, and RSV test was done to determine the cause of respiratory symptoms. [id number] treatments like decongestants and expectorants were recommended for symptom relief. Should pneumonia be confirmed via imaging, antibiotics will be prescribed and sent to the patient's pharmacy. Patient was informed and verbally consented to the use of an ambient scribe for clinic note documentation during this visit Orders: Orders SARS-CoV2/FLU/RSV Today R09.89 - Other specified symptoms and signs involving the circulatory and respiratory systems XR chest 2V Today R05.9 - Cough, unspecified Coding Level of Care Code Est Pt Level 4 (18396) Diagnoses Lower respiratory infection (e.g., bronchitis, pneumonia, pneumonitis, pulmonitis) J22
== END 2024-03-17 13:10 | disposition home or self-care (01) ==
PROVIDERS: PCP Internal Medicine; Visit Provider Physician Assistant
DX: J22 Unspecified acute lower respiratory infection (principal)

== ENCOUNTER 2024-03-17 09:46 | Outpatient (REF) | payer MEDICARE, SELFPAY | END 2024-03-17 09:47 | disposition home or self-care (01) | LOC: HO.LAB 09:46 | PROVIDERS: PCP Internal Medicine | DX: Z13.89 Encounter for screening for other disorder (principal) | CPT/HCPCS: 99212 ==

== ENCOUNTER 2024-03-17 11:38 | Outpatient (REF) | payer MEDICARE, SELFPAY ==
--- NOTE | ~2024-03-17 | XR_ITS ---
EXAMINATION: XR CHEST CLINICAL INFORMATION: R05.9 - Cough, unspecified COMPARISON: 04/21/2023, 04/02/2020. TECHNIQUE: 2 views of the chest were obtained. FINDINGS: There is prominence of the aortic root suggesting aneurysm. The cardiac, hilar, and mediastinal contours are otherwise normal. The lungs are clear bilaterally. There is no pneumothorax or pleural effusion. Nipple shadows present. There is no focal osseous or soft tissue abnormality. XR/XR chest 2V IMPRESSION: 1. No active pulmonary disease. 2. Prominent aortic root suggesting aneurysm. Electronically signed by: Alin Manning MD 03/17/2024 11:57 AM [facility] [place]
[2024-03-17 13:50] LABS: Influenza A PCR NEGATIVE (Negative); Influenza B PCR NEGATIVE (Negative); Resp Syncy Virus RNA Qual PCR NEGATIVE (Negative); SARS COV2 PCR INHOUSE POSITIVE (Negative)
== END 2024-03-17 11:39 | disposition home or self-care (01) ==
LOC: HO.HMGCX 11:38
PROVIDERS: PCP Internal Medicine; Visit Provider Physician Assistant
DX: R05.9 Cough, unspecified (principal); R09.89 Other specified symptoms and signs involving the circulatory and respiratory systems; J22 Unspecified acute lower respiratory infection
CPT/HCPCS: 0241U; 71046; 99212

== ENCOUNTER → 2024-03-17 11:41 | Outpatient (BNV) | payer MEDICARE, SELFPAY | PROVIDERS: PCP Internal Medicine; Visit Provider Radiology Diagnostic Radiology | DX: R05.9 Cough, unspecified (principal) | CPT/HCPCS: 71046 ==

== ENCOUNTER 2024-03-23 07:41 | Outpatient (AMB) | payer MEDICARE, SELFPAY ==
[2024-03-23 08:02] VITALS: BP 124/64; PULSE 80; O2SAT 98; BMI 27.3
--- NOTE | 2024-03-23 08:02 | A.OFFPC_ITS ---
Vital Signs 03/23/24 08:02 Height 5 ft 9 in Weight 185 lb BMI 27.3 BP 124/64 Blood Pressure Location Rt brachial Position Sitting Pulse 80 Pulse Source Pulse Oximeter Pulse Oximetry (%) 98 Oxygen Delivery Method Room Air Intake Visit Reasons: Chest Xray results/aneurysm PER AE Intake Note: Pt is here today to discuss CXR results Allergies naproxen Allergy (Unknown, Verified 03/27/24 22:40) GI bleed NSAIDS (Non-Steroidal Anti-Inflamma Allergy (Unknown, Verified 03/27/24 22:40) GI Bleed Medication List - Last Reconciled 03/27/24 by Umm Brewer MD albuterol sulfate 90 mcg/actuation 2 puffs inhalation Q4-6H PRN 90 days famotidine 40 mg PO QAM fluticasone propion-salmeterol 250-50 mcg/dose (Wixela Inhub) 1 inh inhalation BID 90 days gabapentin 300 mg PO Q12H 3 months ipratropium bromide 2 sprays intranasal BID 3 months losartan 50 mg PO DAILY methylprednisolone PO PER PKG DIR for 6 days montelukast 10 mg PO DAILY Tobacco use date assessed: 03/23/24 Fall risk assessment: No Falls in past year Last assessed Fall Risk: 03/23/24 Dental Screening Dental Screen Date: 03/23/24 Did you have a dental visit in the last 12 months?: Yes Did you have a dental problem in the last 6 months where you did not have access to dental care?: No Was dental information given to patient?: Patient has dentist HPI Chest Xray results/aneurysm PER AE HPI Details - The patient is an 83 year old male pre senting for follow-up after recently diagnosed with COVID-19 infection on 03/17/2024 - Testing indicated positive for COVID-1 9 while negative for RSV and influenza. - The cough shows signs of improvement w ith symptomatic treatment, there was no initiation of Paxlovid due to timing issues. - Notable symptoms include shortness of breath on exertion, no evidence of swelling , no complaints of chest pain noted. Chest x-ray done showed prominence of the aortic root suggesting aneurysm. The cardiac, hilar, and mediastinal contours are otherwise normal. The lungs are clear bilaterally with no pneumothorax or pleural effusion. [facility] Medical History Dyspnea on exertion Action tremor Herpes zoster vaccination declined Flu vaccine refused Tremor of both hands COPD exacerbation Vitamin D deficiency Dyslipidemia Peripheral polyneuropathy Degenerative arthritis of cervical spine Chronic GERD Bronchial asthma Allergic rhinitis Social History Housing: House Patient Tobacco Use Status: Former Tobacco user Years Smoked: 12 e-Cigarette/Vaping Use: Never Used Current occupational status: retired Cognitive needs: No Hearing needs: No Vision needs: Yes Questionnaire PHQ-9 Over the last 2 weeks, how often have you been bothered by any of the following problems? 1. Little interest or pleasure in doing things: not at all 2. Feeling down, depressed, or hopeless: not at all 3. Trouble falling or staying asleep, or sleeping too much: not at all 4. Feeling tired or having little energy: not at all 5. Poor appetite or overeating: not at all 6. Feeling bad about yourself - or that you are a failure or have let yourself or your family down: not at all 7. Trouble concentrating on things, such as reading the newspaper or watching television: not at all 8. Moving or speaking so slowly that other people could have noticed. Or the opposite - being so fidgety or restless that you have been moving around a lot more than usual: not at all 9. Thoughts that you would be better off or of hurting yourself in some way: not at all Total score: 0 Depression Screening Interpretation: Negative Depression Screening Done: Yes 39244 - PHQ-9 Billing: Yes Source: Developed by Drs. Chandan Loera, Aspen Marrero, Dylan Shields and colleagues, with an educational lore from [employer]. Thrive Questionnaire Date Thrive assessed: 03/22/24 I am a: Patient What is your living situation today?: I have a steady place to live Within the past 12 months, did the food you bought not last and you didn't have the money to get more?: Never true Within the past 12 months, did you worry whether your food would run out before you got money to buy more?: Never true Do you have trouble paying for medicines?: No Do you have trouble getting transportation to medical appointments?: No Do you have trouble paying your heating and electricity bill?: No Do you have trouble taking care of your child, family member or friend?: No Do you have trouble with day-to-day activities such as bathing, preparing meals, shopping, managing finances, etc.?: No Are you currently unemployed and looking for a job?: No Are you interested in more education?: No Please select the resources that you would like help with: None Currently or been in a relationship where the following occur: No concerns reported THRIVE Score: 0 AUDIT C Alcohol Use Questionnaire (AUDIT-C) 1. How often do you have a drink containing alcohol?: 2-4 times a month 2. How many drinks containing alcohol do you have on a typical day when you are drinking?: 1 or 2 3. How often do you have six or more drinks on one occasion?: Never Total Score: 2 NELLY-7 AMB Questionnaire NELLY-7 Date NELLY - 7 assessed: 03/23/24 Feeling nervous, anxious, or on edge: 0 = Not at all Not being able to stop or control worryin = Not at all Worrying too much about different things: 0 = Not at all Trouble relaxin = Not at all Being so restless that it is hard to sit still: 0 = Not at all Becoming easily annoyed or irritable: 0 = Not at all Feeling afraid as if something awful might happen: 0 = Not at all Total NELLY-7 score (0-4 normal; 5-9 mild; 10-14 moderate; 15-21 severe): 0 Source: Developed by Drs. Chandan Loera, Aspen Marrero, Dylan Shields and colleagues, with an educational lore from [employer]. NELLY-7 Assessment Billing NELLY-7 Assessment Tool: NELLY-7 Assessment 18181 Review of Systems Const All systems reviewed & are unremarkable except as noted in HPI and below Physical exam (Primary Care) Vital Signs: Last Vital Signs Pulse 80 03/23/24 08:02 BP 124/64 03/23/24 08:02 Pulse Ox 98 03/23/24 08:02 Oxygen Delivery Method Room Air 03/23/24 08:02 BMI result Body Mass Index 27.3 Tobacco/Smoking Status: Tobacco use Status Tobacco use date assessed 03/23/24 03/23/24 08:09 Patient Tobacco Use Status Former Tobacco user 03/23/24 08:09 e-Cigarette/Vaping Use Never Used 03/23/24 08:09 PHQ-9: PHQ-9 Score PHQ-9: Total score 0 03/23/24 08:36 Depression Screening Interpretation: Negative Thrive Assessment: Date of Thrive Assessment Date Thrive assessed 03/22/24 03/23/24 08:09 Currently or been in a relationship where the following occur: No concerns reported Const General: comfortable and no acute distress Orientation/consciousness: patient oriented x3 HENMT Head: Yes normocephalic Ears: external ears normal and TM's normal bilaterally General nose exam: Normal external nose present Face and sinus: Yes sinuses nontender Mouth: moist mucous membranes Throat: Yes posterior oropharynx normal Eyes Pupils: Equal, round and reactive pupils present EOM: EOMs intact bilaterally Direct Ophthalmoscopy: normal light reflex Neck Neck: Yes full ROM and Yes no lymphadenopathy Resp Effort & Inspection: normal respiratory effort and able to speak in complete sen tences Auscultation: clear to auscultation bilaterally, no crackles, no rales, no rhonchi and no wheezes Cardio Heart sounds: S1 normal heart sound present and S2 normal heart sound present GI Inspection: Yes Abdominal panniculus present Palpation (GI): Soft to palpation, nontender and no guarding Auscultation: normal bowel sounds Back/Spine/Pelvis Back: No back tenderness Neuro Other: Mild Trevors of upper extremities. General: patient oriented x3, gait normal and moves all extremities Cranial nerves: Yes Equal, round and reactive pupils present, Yes Bilaterally intact EOM present and Yes Midline tongue present Motor exam (neuro): 5/5 motor strength present throughout and Tremors during motor activity present (B/L upper extremities) Extrem General: Yes full ROM and Yes capillary refill normal Coding Level of Care Code Est Pt Level 4 (71657) Diagnoses Dyspnea on exertion R06.09 Aortic root dilatation I77.810 Dyslipidemia E78.5 Primary hypertension I10 Hypertension type: primary hypertension Additional Codes PHQ-9 - 96957 - PHQ-9 Billing: Yes ([id number]) NELLY-7 Assessment Billing - NELLY-7 Assessment Tool: NELLY-7 Assessment 73236 ([id number]) Assessment & Plan Assessment & Plan (1) Dyspnea on exertion: Comment: TODAY HE COMPLAINS OF SLIGHTLY INCREASED SHORTNESS OF BREATH ON HIS USUAL WALKING OUTDOORS OR CLIMBING STAIRS. THIS IS WITHOUT ANY CHEST TIGHTNESS, PAIN OR WHEEZING. Code(s): R06.09 - Other forms of dyspnea Category: Medical (2) Aortic root dilatation: Code(s): I77.810 - Thoracic aortic ectasia Category: Medical (3) Dyslipidemia: Code(s): E78.5 - Hyperlipidemia, unspecified Category: Medical (4) Hypertension: Code(s): I10 - Essential (primary) hypertension Category: Medical Qualifiers: Hypertension type: primary hypertension Qualified Code(s): I10 - Essential (primary) hypertension Plan The patient is recovering from COVID-19 with improving symptoms of cough and congestion. Cardiovascular assessment is anticipated, with an echocardiogram ordered to explore suspected aneurysm and shortness of breath concerns. A cardiology consultation will be arranged for further investigation. Activity modification, particularly avoiding heavy snow shoveling, is recommended. Lab monitoring for elevated cholesterol levels and fasting blood work is scheduled. Patient was informed and verbally consented to the use of an ambient scribe for clinic note documentation during this visit. Orders: Orders CA echo transthoracic complete 03/23/24 I77.810 - Thoracic aortic ectasia, R06.09 - Other forms of dyspnea Basic Metabolic Panel Fasting 03/23/24 E78.5 - Hyperlipidemia, unspecified, I10 - Essential (primary) hypertension, I77.810 - Thoracic aortic ectasia Complete Blood Count Auto Diff 03/23/24 E78.5 - Hyperlipidemia, unspecified, I10 - Essential (primary) hypertension, I77.810 - Thoracic aortic ectasia Vitamin D 25-OH Total 03/23/24 E55.9 - Vitamin D deficiency, unspecified Lipid Panel 03/23/24 E78.5 - Hyperlipidemia, unspecified, I10 - Essential (primary) hypertension, I77.810 - Thoracic aortic ectasia Referrals Cardiology Referral I77.810 - Thoracic aortic ectasia, R06.09 - Other forms of dyspnea
== END 2024-03-23 08:55 | disposition home or self-care (01) ==
PROVIDERS: PCP Internal Medicine; Visit Provider Internal Medicine
DX: R06.09 Other forms of dyspnea (principal); I77.810 Thoracic aortic ectasia; E78.5 Hyperlipidemia, unspecified; I10 Essential (primary) hypertension

== ENCOUNTER → 2024-03-23 07:41 | Outpatient (BNVA) | payer MEDICARE, SELFPAY | PROVIDERS: PCP Internal Medicine; Visit Provider Internal Medicine | DX: R06.09 Other forms of dyspnea (principal); I77.810 Thoracic aortic ectasia; E78.5 Hyperlipidemia, unspecified; I10 Essential (primary) hypertension | CPT/HCPCS: 96127; 99212 ==

== ENCOUNTER → 2024-03-28 07:45 | Outpatient (REF) | payer MEDICARE, SELFPAY ==
--- NOTE | 2024-03-28 07:48 | CA_ITS ---
Transthoracic Echocardiogram Patient (Last, First, Middle): Sebastien Cody R Gender: Male Date of : 1940 Age: 83 Procedure Date: 03/28/2024 Procedure Type: Transthoracic Echocardiogram Location: OP Height: 175.26 cm Weight: 83.46 kg BSA: 1.99 m2 Heart Rate: bpm BP: 124 / 66 mmHg Environmental Economist: Referring MD: Umm Brewer MD Symptoms: R06.09 - Other forms of dyspnea Study Quality: Adequate ECG Rhythm: Sinus Conclusions: - The left ventricular systolic function is normal. The calculated ejection fraction is 63% by biplane method. - No obvious valvular pathology seen on this study. Findings Left Ventricle Normal left ventricular cavity size. There is moderately increased left ventricular wall thickness. The left ventricular systolic function is normal. The calculated ejection fraction is 63% by biplane method. There is no evidence of regional wall motion abnormalities. Evidence suggests grade I (mild) diastolic dysfunction. Right Ventricle Normal right ventricular cavity size and systolic function. Atria The left atrium is mildly dilated. The right atrium is normal in size. Aortic Valve There is mild calcification of the aortic valve. There is no aortic valve stenosis. There is no aortic valve regurgitation. Mitral Valve The mitral valve appears normal. There is mild mitral annular calcification. There is no mitral valve regurgitation. There is no mitral valve stenosis. Pulmonic Valve The pulmonic valve is likely normal. Tricuspid Valve There is trace tricuspid valve regurgitation. There is no evidence of pulmonary hypertension. Great Vessels The asc aorta is normal in size. Venous The inferior vena cava is normal in size and collapses greater than 50% with inspiration. Pericardium/Pleural There is no evidence of pericardial effusion. Prior Study Comparison No prior study available for comparison. Recommendations, Care & Conclusions No obvious valvular pathology seen on this study. Measurements 2D Linear Measurements IVSd: 1.32 0.6-0.9/0.6-1.0 cm LVIDd: 4.02 3.9-5.3/4.2-5.9 cm LVIDd Index: 2.02 2.4-3.2/2.2-3.1 cm/m2 LVIDs: 2.48 2.0-3.6 cm LVPWd: 1.34 0.7-1.1 cm Ao Root: 3.70 2.1-3.5 cm LA Diam: 4.20 2.7-3.8/3.0-4.0 cm LAIDs Index: 2.11 1.5-2.3 cm/m2 LV Mass: 242.44 67-162/88-224 g LV Mass Index: 121.83 43-95/49-115 g/m2 LVOT Diam: 2.20 3.0+(-)1.3 cm 2D Systolic Function EF 4C: 64.00 >55% EF 2C: 60.80 >55% EF BiP: 62.70 >55% Mitral Valve MV Pk E: 0.53 MV PK A: 0.96 MV Decel Time: 289.00 E/A: 0.60 E'Lateral: 7.83 E'Medial: 3.59 E/E' Med: 14.80 E/E' Lat: 6.80 PHT: 85.00 MVA PHT: 2.59 Decel Spencer: 1.85 Aortic Valve AoV Pk Yuri: 1.68 AoV Mn Yuri: 1.21 AoV VTI: 0.35 AoV Pk Grad: 11.00 Aov Mn Grad: 7.00 RENAN Cont.VTI: 2.26 LVOT LVOT Pk Yuri: 0.94 LVOT Mn Yuri: 0.64 LVOT VTI: 0.21 LVOT Pk Grad: 4.00 LVOT Mn Grad: 2.00 LVOT Diam: 2.20 LVOT Area: 3.80 Diastolic Function MV Pk E: 0.53 MV Pk A: 0.96 E/A: 0.60 E'Medial: 3.59 E/E' Med: 14.80 E' Laterial: 7.83 E/E' Lat: 6.80 Right Ventricle TAPSE (mm): 24.00 TVS' Yuri: 14.00 Tricuspid Valve TR Pk Yuri: 1.56 TR Pk Grad: 10.00 RA Press: 3.00 RVSP: 13.00 Great Vessels Aorta Ao Root-2D: 3.70 2.0-3.7 cm Ao Asc: 3.80 2.1-3.4 cm Pulmonary Valve PV Pk Yuri: 0.92 Peak PV Grad: 3.00 Updated in Other Vendor System with Status of Final Toni Shin MD electronically signed on 03/28/2024 3:56:15 PM with status of Final
== END ==
LOC: HO.CARD 07:45
PROVIDERS: PCP Internal Medicine; Visit Provider Internal Medicine
DX: R06.09 Other forms of dyspnea (principal); I77.810 Thoracic aortic ectasia
CPT/HCPCS: 93306

== ENCOUNTER → 2024-03-28 07:48 | Outpatient (BNV) | payer MEDICARE, SELFPAY | PROVIDERS: PCP Internal Medicine; Visit Provider Internal Medicine | DX: I51.89 Other ill-defined heart diseases (principal); I35.8 Other nonrheumatic aortic valve disorders; I34.81 Nonrheumatic mitral (valve) annulus calcification | CPT/HCPCS: 93306 ==

== ENCOUNTER 2024-03-29 07:05 | Outpatient (REF) | payer MEDICARE, SELFPAY ==
[2024-03-29 10:15] LABS: MANUAL DIFF FLAG NO
[2024-03-29 10:20] LABS: Basophils Absolute Auto 0.1 X10*3/uL (0.0-0.2); Basophils Percent Auto 0.7 % (0-2); Eosinophils Absolute Auto 0.2 X10*3/uL (0.0-0.4); Eosinophils Percent Auto 2.6 % (0-4); Hematocrit 41.5 % (42.0-52.0); Hemoglobin 13.7 g/dl (14.0-18.0); Imm Gran Abs Auto 0.03 X10*3/uL (0.00-0.03); Imm Gran Pct Auto 0.3 % (0.0-0.4); Lymphocytes Absolute Auto 2.3 X10*3/uL (1.2-4.9); Lymphocytes Percent Auto 27.2 % (20-40); Mean Corpuscular Hemoglobin 32.3 pg (27.0-33.0); Mean Corpuscular Volume 97.9 fL (80.0-98.0); Mean Platelet Volume 9.8 fL (9.4-12.4); Monocytes Absolute Auto 0.9 X10*3/uL (0.1-1.2); Monocytes Percent Auto 10.8 % (2-11); Neutrophils Percent Auto 58.4 % (45-73); Platelet Count 331 X10*3/uL (160-400); Red Blood Count 4.24 X10*6/uL (4.60-5.80); Red Cell Distribution Width 12.6 % (11.0-16.0); White Blood Count 8.6 X10*3/uL (4.8-10.8)
[2024-03-29 10:52] LABS: Anion Gap 11 (12-20); Blood Urea Nitrogen 23 mg/dL (9-16); Calcium 9.2 mg/dL (8.4-10.2); Carbon Dioxide 26 mmol/L (22-29); Chloride 106 mmol/L (96-108); Cholesterol 200 mg/dL (<200); Estimated Glomerular Filt Rate 56; Glucose Fasting 98 mg/dL (60-99); HDL Cholesterol 49 mg/dL (>40); LDL Cholesterol Calculated 119 mg/dL (<100); Potassium 4.1 mmol/L (3.3-5.1); Sodium 139 mmol/L (135-145); Triglycerides 163 mg/dL (<150)
[2024-03-29 11:15] LABS: Vitamin D 25-OH Total 144.5 ng/mL (>30)
== END 2024-03-29 07:06 | disposition home or self-care (01) ==
LOC: HO.HMGCLDS 07:05
PROVIDERS: PCP Internal Medicine; Visit Provider Internal Medicine
DX: I77.810 Thoracic aortic ectasia (principal); E55.9 Vitamin D deficiency, unspecified; E78.5 Hyperlipidemia, unspecified; I10 Essential (primary) hypertension
CPT/HCPCS: 36415; 80048; 80061; 82306; 85025

== ENCOUNTER → 2024-04-06 10:31 | Outpatient (BNVA) | payer MEDICARE, SELFPAY | PROVIDERS: PCP Internal Medicine; Visit Provider Internal Medicine | DX: I10 Essential (primary) hypertension (principal); G62.9 Polyneuropathy, unspecified; E78.5 Hyperlipidemia, unspecified; R09.82 Postnasal drip; D64.9 Anemia, unspecified; J45.998 Other asthma | CPT/HCPCS: 96160; 99212 ==

== ENCOUNTER 2024-05-16 09:42 | Outpatient (AMB) | payer MEDICARE, SELFPAY ==
[2024-05-16 09:56] VITALS: BP 115/85; PULSE 72; O2SAT 95; BMI 27.3
--- NOTE | 2024-05-16 09:56 | MHC.OFFVIS ---
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 Required: No Allergies naproxen Allergy (Unknown, Verified 05/16/24 09:58) GI bleed NSAIDS (Non-Steroidal Anti-Inflamma Allergy (Unknown, Verified 05/16/24 09:58) GI Bleed [facility] Medical History (Updated 04/06/24 @ 11:15 by Umm Brewer MD) Anemia Dyspnea on exertion Action tremor Herpes zoster vaccination declined Flu vaccine refused Tremor of both hands COPD exacerbation Vitamin D deficiency Dyslipidemia Peripheral polyneuropathy Degenerative arthritis of cervical spine Chronic GERD Bronchial asthma Allergic rhinitis Social History Housing: House Patient Tobacco Use Status: Former Tobacco user Years Smoked: 12 e-Cigarette/Vaping Use: Never Used Current occupational status: retired Cognitive needs: No Hearing needs: No Vision needs: Yes Coding
--- NOTE | 2024-05-16 10:04 | MHC.OFFVIS ---
Vital Signs 05/16/24 09:56 05/16/24 10:21 Height 5 ft 9 in Weight 185 lb 3.013 oz BMI 27.3 27.3 BP 115/85 Blood Pressure Location Lt brachial Position Sitting Pulse 72 Pulse Source Pulse Oximeter Pulse Oximetry (%) 95 Oxygen Delivery Method Room Air Intake Visit Reasons: Shortness of breath Allergies naproxen Allergy (Unknown, Verified 05/16/24 10:14) GI bleed NSAIDS (Non-Steroidal Anti-Inflamma Allergy (Unknown, Verified 05/16/24 10:14) GI Bleed Medication List - Last Reconciled 05/16/24 by Idalia Mullen MD albuterol sulfate 90 mcg/actuation 2 puffs inhalation Q4-6H PRN 90 days famotidine 40 mg PO QAM fluticasone propion-salmeterol 250-50 mcg/dose (Wixela Inhub) 1 inh inhalation BID 90 days gabapentin 300 mg PO Q12H 3 months ipratropium bromide 2 sprays intranasal BID 3 months losartan 50 mg PO DAILY montelukast 10 mg PO DAILY Do you need a note to return to daycare/school/sports/work: No HPI HPI Shortness of breath: Details: LAVERN IS HERE TODAY FOR A SIX-MONTH FOLLOW-UP FOR HIS ALLERGIC RHINITIS HE REPORTS HE IS FEELING WELL AND HAS REMAINED ACTIVE WALKING 2-3 MILES EACH TIME HE REPORTS OCCASIONAL COUGH WITH WITH A HOARSE VOICE BUT REPORTS THE IPRATROPIUM-BROMIDE DOES RELIEVE HIS SYMPTOMS DENIES ANY SHORTNESS OF BREATH . [facility] Medical History Anemia Dyspnea on exertion Action tremor Herpes zoster vaccination declined Flu vaccine refused Tremor of both hands COPD exacerbation Vitamin D deficiency Dyslipidemia Peripheral polyneuropathy Degenerative arthritis of cervical spine Chronic GERD Bronchial asthma Allergic rhinitis Social History Housing: House Patient Tobacco Use Status: Former Tobacco user Years Smoked: 12 e-Cigarette/Vaping Use: Never Used Current occupational status: retired Cognitive needs: No Hearing needs: No Vision needs: Yes Review of Systems Const All systems reviewed & are unremarkable except as noted in HPI and below Eyes Reports no additional complaints ENT Reports nasal discharge (Off and on) Card Reports no additional complaints Resp Reports as per HPI GI Reports no additional complaints Reports no additional complaints Musc Reports no additional complaints Skin/Breast Reports system reviewed and no additional complaints, except as documented Neuro Reports no additional complaints Psych Reports no additional complaints Physical Exam Vital Signs: Last Vital Signs Pulse 72 05/16/24 09:56 BP 115/85 05/16/24 09:56 Pulse Ox 95 05/16/24 09:56 Oxygen Delivery Method Room Air 05/16/24 09:56 BMI result Body Mass Index 27.3 Const General: healthy appearing, comfortable, no acute distress, alert and awake Orientation/consciousness: patient oriented x3 HEENT Head: Yes normal to inspection General nose exam: No nasal polyps present and No nasal discharge present Face and sinus: Yes sinuses nontender Mouth: oropharynx normal Throat: Yes posterior oropharynx normal Eyes General: appearance normal, both eyes and all related structures Neck Neck: Yes normal visual inspection, Yes no lymphadenopathy, Yes trachea midline and Yes no JVD Thyroid: Thyroid normal Chest Chest palpation & inspection: normal inspection of the chest and no tenderness Resp Other: Percussion note is resonant, breath sounds are slightly distant with prolonged expiratory phase. No audible wheezes or rhonchi. Effort & Inspection: normal respiratory effort Auscultation: no crackles, no rhonchi and no wheezes Percussion: percussion normal Cardio Palpation: normal PMI Rate: regular rate Rhythm: regular rhythm Heart sounds: no gallops and no murmurs Peripheral pulses: Peripheral pulses 2+ throughout GI Palpation (GI): Soft to palpation, nontender, No hepatosplenomegaly present and no masses Auscultation: normal bowel sounds Back/Spine/Pelvis Thoracic/Lumbar Spine: thoracic and lumbar spine normal to inspection Skin General skin exam: no rashes or lesions noted Neuro General: patient oriented x3 and no focal motor deficits Cranial nerves: Yes CN's II-XII intact bilaterally Extrem General: Yes normal to inspection, Yes no clubbing, cyanosis or edema and Yes no calf tenderness Psych Appearance: grossly normal and well kempt Speech and movement: Normal speech and movement present Assessment & Plan Assessment & Plan (1) Allergic rhinitis: Comment: CHRONIC ALLERGIC/VASOMOTOR RHINITIS. IT IS STAYING WELL CONTROLLED WITH THE CURRENT REGIMEN : PATIENT NEEDS A NEW PRESCRIPTION Code(s): J30.9 - Allergic rhinitis, unspecified Category: Medical Qualifiers: Allergic rhinitis seasonality: non-seasonal Allergic rhinitis trigger: unspecified Qualified Code(s): J30.89 - Other allergic rhinitis Plan: ADVISED TO CONTINUE USING IPRATROPIUM BROMIDE NASAL SPRAY DAILY (2) Bronchial asthma: Comment: HIS BRONCHIAL ASTHMA IS, MORE COUGH VARIANT, AND IS WELL CONTROLLED . IS SYMPTOMS GET LITTLE WORSE USUALLY AT THE CHANGE OF THE WEATHER. AT PRESENT HE HAS VERY LITTLE COUGH OR WHEEZING. Code(s): J45.909 - Unspecified asthma, uncomplicated Category: Medical Plan: CONTINUE USING WIXELA 250-50 B.I.D AND ALBUTEROL 2 PUFFS Q 6 HOURS P.R.N. Medications: Refilled fluticasone propion-salmeterol 250-50 mcg/dose (Wixela Inhub) 90 day supply. 1 inh inhalation BID 180 ea 3RF asthma/copd 90 days J44.1 - Chronic obstructive pulmonary disease with (acute) exacerbation, J45.909 - Unspecified asthma, uncomplicated ipratropium bromide 2 sprays intranasal BID 45 mL 0RF 3 months Coding Level of Care Code Est Pt Level 3 (46119) Diagnoses Non-seasonal allergic rhinitis, unspecified trigger J30.89 Allergic rhinitis seasonality: non-seasonal Allergic rhinitis trigger: unspecified Bronchial asthma J45.909
[2024-05-16 10:21] VITALS: BMI 27.3
== END 2024-05-16 10:15 | disposition home or self-care (01) ==
LOC: HO.HPS 09:42
PROVIDERS: PCP Internal Medicine; Visit Provider Internal Medicine
DX: J30.89 Other allergic rhinitis (principal); J45.909 Unspecified asthma, uncomplicated
CPT/HCPCS: 99213

== ENCOUNTER → 2024-05-16 09:42 | Outpatient (BNVA) | payer MEDICARE, SELFPAY | PROVIDERS: PCP Internal Medicine; Visit Provider Internal Medicine | DX: J45.909 Unspecified asthma, uncomplicated (principal) | CPT/HCPCS: 99212 ==

== ENCOUNTER 2024-06-21 18:00 | Emergency (ER) | payer MEDICARE, SELFPAY ==
[2024-06-21 18:18] VITALS: BP 141/74; BP 160/80; PULSE 67; PULSE 70; RESP 19; TEMP 36.8; O2SAT 95; BMI 26.8
[2024-06-21 20:00] VITALS: BP 147/98; PULSE 113; RESP 22; O2SAT 96
--- NOTE | 2024-06-21 21:30 | MHC.EDTECH ---
Pt refused blood work, stated that he wants to leave. RN notified.
--- NOTE | 2024-06-21 21:46 | PC.NURSE ---
Patient angry as he states has been waiting 3 hours for a provider. Spoke with patient and offered to start his care at this time. When tech went to obtain his labwork, patient states that he will not stay at this time and requesting to leave. PIV removed. Patient ambulated out of the department with a steady gait.
== END 2024-06-21 21:50 | disposition left against medical advice (07) ==
PROVIDERS: Emergency Provider Emergency Medicine; PCP Internal Medicine
DX: R42 Dizziness and giddiness (principal)
CPT/HCPCS: 99281; 99284

== ENCOUNTER 2024-06-27 11:40 | Outpatient (REF) | payer MEDICARE, SELFPAY ==
[2024-06-27 16:09] LABS: MANUAL DIFF FLAG NO
[2024-06-27 16:20] LABS: Basophils Absolute Auto 0.1 X10*3/uL (0.0-0.2); Basophils Percent Auto 0.8 % (0-2); Eosinophils Absolute Auto 0.2 X10*3/uL (0.0-0.4); Eosinophils Percent Auto 3.1 % (0-4); Hematocrit 40.1 % (42.0-52.0); Hemoglobin 13.5 g/dl (14.0-18.0); Imm Gran Abs Auto 0.01 X10*3/uL (0.00-0.03); Imm Gran Pct Auto 0.2 % (0.0-0.4); Lymphocytes Absolute Auto 2.1 X10*3/uL (1.2-4.9); Lymphocytes Percent Auto 33.8 % (20-40); Mean Corpuscular HGB Conc 33.7 g/dl (31.0-36.0); Mean Corpuscular Hemoglobin 32.4 pg (27.0-33.0); Mean Corpuscular Volume 96.2 fL (80.0-98.0); Mean Platelet Volume 10.3 fL (9.4-12.4); Monocytes Absolute Auto 0.6 X10*3/uL (0.1-1.2); Monocytes Percent Auto 10.1 % (2-11); Neutrophils Absolute Auto 3.2 x10*3/uL (2.0-8.3); Platelet Count 280 X10*3/uL (160-400); Red Blood Count 4.17 X10*6/uL (4.60-5.80); Red Cell Distribution Width 12.5 % (11.0-16.0); White Blood Count 6.2 X10*3/uL (4.8-10.8)
[2024-06-27 16:23] LABS: Alanine Aminotransferase 27 U/L (0-40); Aspartate Amino Transferase 35 U/L (5-37); Iron 88 mcg/dL (45-160); Percent Iron Saturation 35 % (15-50); Total Iron Binding Capacity 249 mcg/dL (228-428); Unsaturated Iron Binding 161 ug/dL
== END 2024-06-27 11:41 | disposition home or self-care (01) ==
LOC: HO.LAB 11:40
PROVIDERS: PCP Internal Medicine; Visit Provider Internal Medicine
DX: R42 Dizziness and giddiness (principal); R31.0 Gross hematuria; D64.9 Anemia, unspecified; E78.5 Hyperlipidemia, unspecified; G62.9 Polyneuropathy, unspecified; I10 Essential (primary) hypertension; R09.82 Postnasal drip
CPT/HCPCS: 36415; 81003; 83540; 84450; 84460; 85025; 99212

== ENCOUNTER 2024-06-27 11:40 | Outpatient (AMB) | payer MEDICARE, SELFPAY ==
[2024-06-27 12:00] VITALS: BP 136/68; PULSE 72; RESP 16; TEMP 36.7; O2SAT 95; BMI 27.2
--- NOTE | 2024-06-27 12:00 | MHC.PC.OV ---
Vital Signs 06/27/24 12:00 Height 5 ft 9 in Weight 184 lb BMI 27.2 BP 136/68 Blood Pressure Location Rt brachial Position Sitting Respiration 16 Pulse 72 Pulse Source Pulse Oximeter Temp 98.0 F Temp Source Oral Pulse Oximetry (%) 95 Oxygen Delivery Method Room Air Intake Visit Reasons: dizziness Intake Note: Pt is here today to f/u dizziness: went to [facility] and left [facility] Allergies naproxen Allergy (Unknown, Verified 06/27/24 12:04) GI bleed NSAIDS (Non-Steroidal Anti-Inflamma Allergy (Unknown, Verified 06/27/24 12:04) GI Bleed Tobacco use date assessed: 06/27/24 Fall risk assessment: No Falls in past year Last assessed Fall Risk: 06/27/24 Dental Screening Dental Screen Date: 06/27/24 Did you have a dental visit in the last 12 months?: Yes Did you have a dental problem in the last 6 months where you did not have access to dental care?: No Was dental information given to patient?: Patient has dentist [facility] Medical History (Updated 06/27/24 @ 12:34 by Umm Brewer MD) Intermittent lightheadedness Hematuria Anemia Dyspnea on exertion Action tremor Herpes zoster vaccination declined Flu vaccine refused Tremor of both hands COPD exacerbation Vitamin D deficiency Dyslipidemia Peripheral polyneuropathy Degenerative arthritis of cervical spine Chronic GERD Bronchial asthma Allergic rhinitis Social History Housing: House Patient Tobacco Use Status: Former Tobacco user Years Smoked: 12 e-Cigarette/Vaping Use: Never Used Current occupational status: retired Cognitive needs: No Hearing needs: No Vision needs: Yes Questionnaire Thrive Questionnaire Date Thrive assessed: 03/22/24 I am a: Patient What is your living situation today?: I have a steady place to live Within the past 12 months, did the food you bought not last and you didn't have the money to get more?: Never true Within the past 12 months, did you worry whether your food would run out before you got money to buy more?: Never true Do you have trouble paying for medicines?: No Do you have trouble getting transportation to medical appointments?: No Do you have trouble paying your heating and electricity bill?: No Do you have trouble taking care of your child, family member or friend?: No Do you have trouble with day-to-day activities such as bathing, preparing meals, shopping, managing finances, etc.?: No Are you currently unemployed and looking for a job?: No Are you interested in more education?: No Please select the resources that you would like help with: None Currently or been in a relationship where the following occur: No concerns reported THRIVE Score: 0 NELLY-7 AMB Questionnaire NELLY-7 Date NELLY - 7 assessed: 03/23/24 Source: Developed by Drs. Chandan Loera, Aspen Marrero, Dylan Shields and colleagues, with an educational lore from [employer]. Physical exam (Primary Care) Vital Signs: Last Vital Signs Temp 98.0 F 06/27/24 12:00 Pulse 72 06/27/24 12:00 Resp 16 06/27/24 12:00 BP 136/68 06/27/24 12:00 Pulse Ox 95 06/27/24 12:00 Oxygen Delivery Method Room Air 06/27/24 12:00 BMI result Body Mass Index 27.2 Tobacco/Smoking Status: Tobacco use Status Tobacco use date assessed 06/27/24 06/27/24 12:02 Patient Tobacco Use Status Former Tobacco user 06/27/24 12:02 e-Cigarette/Vaping Use Never Used 06/27/24 12:02 Thrive Assessment: Date of Thrive Assessment Date Thrive assessed 03/22/24 06/27/24 12:02 Currently or been in a relationship where the following occur: No concerns reported Results AMB Urinalysis, Automated UA Leukoctes 15 Caroline/uL Last Edit by Nae Ramirez CMA on 06/27/24 12:26 UA Nitrite Negative Last Edit by Nae Ramirez CMA on 06/27/24 12:26 UA Urobilinogen 0.2 mg/dL Last Edit by Nae Ramirez CMA on 06/27/24 12:26 UA Protein 30 mg/dL Last Edit by Nae Ramirez CMA on 06/27/24 12:26 UA pH 6.0 Last Edit by Nae Ramirez CMA on 06/27/24 12:26 UA Blood 200 Candido/uL Last Edit by Nae Ramirez CMA on 06/27/24 12:26 UA Specific [place] 1.020 Last Edit by Nae Ramirez CMA on 06/27/24 12:26 UA Ketone Negative Last Edit by Nae Ramirez CMA on 06/27/24 12:26 UA Bilirubin 0 mg/dL Last Edit by Nae Ramirez CMA on 06/27/24 12:26 UA Glucose 0 mg/dL Last Edit by Nae Ramirez CMA on 06/27/24 12:26 Results Reviewed Results Reviewed: Name: Sebastien Cody Age/Sex: 83/M : 1940 Unit#: [id number] Attend Dr: Umm Brewer MD Re03/29/24 Status: DEP REF [facility] Disch: SPEC : [id number] BRUNA: 03/29/24 STATUS: COMP REQ : [id number] RECD: 03/29/[address]: Umm Brewer MD COMP: 03/29/24 ENTERED: 03/29/[address] [facility] [address]: ORDERED: CBC Auto Diff Test Result Flag Reference WBC 8.6 4.8-10.8 X10*3/uL RBC 4.24 L 4.60-5.80 X10*6/uL HGB 13.7 L 14.0-18.0 g/dl HCT 41.5 L 42.0-52.0 % MCV 97.9 80.0-98.0 fL MCH 32.3 27.0-33.0 pg MCHC 33.0 31.0-36.0 g/dl RDW 12.6 11.0-16.0 % PLT 331 160-400 X10*3/uL MPV 9.8 9.4-12.4 fL Neut Pct Auto 58.4 45-73 % ImGran Pct Auto 0.3 0.0-0.4 % Lymp Pct Auto 27.2 20-40 % [place] Pct Auto 10.8 2-11 % Eos Pct Auto 2.6 0-4 % Baso Pct Auto 0.7 0-2 % NRBC Pct Auto 0.0 0.0-0.2 /100WBC ANC Neut Abs # 5.0 2.0-8.3 x10*3/uL ImGran Abs Auto 0.03 0.00-0.03 X10*3/uL Lymph Abs Auto 2.3 1.2-4.9 X10*3/uL [place] Abs Auto 0.9 0.1-1.2 X10*3/uL Eos Abs Auto 0.2 0.0-0.4 X10*3/uL Baso Abs Auto 0.1 0.0-0.2 X10*3/uL NRBC Abs Auto 0.000 0.0-0.012 X10*3/uL Coding Diagnoses Hematuria R31.9 Anemia, unspecified type D64.9 Anemia type: unspecified type Intermittent lightheadedness R42 Assessment & Plan Assessment & Plan (1) Hematuria: Code(s): R31.9 - Hematuria, unspecified Category: Medical (2) Anemia: Code(s): D64.9 - Anemia, unspecified Category: Medical Qualifiers: Anemia type: unspecified type Qualified Code(s): D64.9 - Anemia, unspecified (3) Intermittent lightheadedness: Code(s): R42 - Dizziness and giddiness Category: Medical Orders: Orders AMB Urinalysis Automated Today Z13.9 - Encounter for screening, unspecified US renal BI Today D64.9 - Anemia, unspecified, R31.9 - Hematuria, unspecified AMB EKG-In Office Today R42 - Dizziness and giddiness Urine Cytology Today R31.9 - Hematuria, unspecified Referrals Urology Referral D64.9 - Anemia, unspecified, R31.9 - Hematuria, unspecified, R42 - Dizziness and giddiness
== END 2024-06-27 13:07 | disposition home or self-care (01) ==
LOC: HO.HMCC 11:41
PROVIDERS: PCP Internal Medicine; Visit Provider Internal Medicine
DX: Z13.9 Encounter for screening, unspecified (principal)

== ENCOUNTER 2024-06-28 07:18 | Outpatient (REF) | payer MEDICARE, SELFPAY ==
[2024-06-28 10:37] LABS: Anion Gap 13 (12-20); Blood Urea Nitrogen 23 mg/dL (9-16); Calcium 9.4 mg/dL (8.4-10.2); Carbon Dioxide 28 mmol/L (22-29); Chloride 105 mmol/L (96-108); Cholesterol 226 mg/dL (<200); Estimated Glomerular Filt Rate 52; Glucose Fasting 102 mg/dL (60-99); HDL Cholesterol 52 mg/dL (>40); LDL Cholesterol Calculated 144 mg/dL (<100); Potassium 4.2 mmol/L (3.3-5.1); Sodium 142 mmol/L (135-145); Triglycerides 152 mg/dL (<150)
[2024-06-28 11:05] LABS: Urine Cytology See Pathology rpt
== END 2024-06-28 07:19 | disposition home or self-care (01) ==
LOC: HO.HMGCLDS 07:18
PROVIDERS: PCP Internal Medicine; Visit Provider Internal Medicine
DX: R31.9 Hematuria, unspecified (principal); E78.5 Hyperlipidemia, unspecified; G62.9 Polyneuropathy, unspecified; I10 Essential (primary) hypertension; R09.82 Postnasal drip; D64.9 Anemia, unspecified
CPT/HCPCS: 36415; 80048; 80061; 88112

== ENCOUNTER 2024-06-30 09:20 | Outpatient (REF) | payer MEDICARE, SELFPAY ==
--- NOTE | ~2024-06-30 | US_ITS ---
EXAMINATION: US RETROPERITONEAL LIMITED (RENAL ONLY) CLINICAL INFORMATION: Hematuria, unspecified. Anemia.. COMPARISON: None available. TECHNIQUE: Real-time imaging of the kidneys. FINDINGS: RIGHT KIDNEY: 10.6 x 6 x 1 x 5.8 cm (SAG x AP x TRV). The kidney is normal in size, contour, and infiltrate mildly increased cortical echogenicity. Renal cortical thickness is normal. No calculi or suspicious focal parenchymal lesions. No hydronephrosis. There is a minimally complex pole cyst measuring 1.8 x 1.7 x 1.7 cm, and a minimally complex midpole cyst measuring 2.6 x 3.1 x 3.3 cm. 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 LEFT KIDNEY: 9.9 x 5.4 x 4.5 cm (SAG x AP x TRV). The kidney is normal in size, contour, and demonstrates mildly increased cortical echogenicity. Renal cortical thickness is normal. No calculi or focal parenchymal lesions. No hydronephrosis. US/US renal BI IMPRESSION: 1. Mildly increased cortical echogenicity of both kidneys without cortical thinning. Findings suggest mild intrinsic renal disease. 2. No hydronephrosis, suspicious lesions, or calculi. 3. There are 2 mildly complex cysts in the right kidney, largest in the midpole measuring 3.3 cm. These may be consistent with Bosniak 2 type cyst do not are follow-up given appearance. Electronically signed by: Alin Manning MD 06/30/2024 09:44 AM EDT
== END 2024-06-30 09:21 | disposition home or self-care (01) ==
LOC: HO.HMGCX 09:20
PROVIDERS: PCP Internal Medicine; Visit Provider Internal Medicine
DX: R31.9 Hematuria, unspecified (principal); D64.9 Anemia, unspecified
CPT/HCPCS: 76775

== ENCOUNTER → 2024-06-30 09:24 | Outpatient (BNV) | payer MEDICARE, SELFPAY | PROVIDERS: PCP Internal Medicine; Visit Provider Radiology Diagnostic Radiology | DX: R31.9 Hematuria, unspecified (principal); D64.9 Anemia, unspecified | CPT/HCPCS: 76775 ==

== ENCOUNTER 2024-09-06 10:35 | Outpatient (REF) | payer MEDICARE, SELFPAY | END 2024-09-06 10:36 | disposition home or self-care (01) | LOC: HO.LAB 10:35 | PROVIDERS: PCP Internal Medicine; Visit Provider Nurse Practitioner Family | DX: R31.0 Gross hematuria (principal); R97.20 Elevated prostate specific antigen [PSA]; Z13.9 Encounter for screening, unspecified; N39.43 Post-void dribbling; R39.15 Urgency of urination; Z79.899 Other long term (current) drug therapy | CPT/HCPCS: 81003; 88112; 99202 ==

== ENCOUNTER 2024-09-06 10:35 | Outpatient (AMB) | payer MEDICARE, SELFPAY ==
--- NOTE | 2024-09-06 11:02 | A.OFFVIS_ITS ---
Intake Visit Reasons: microscopic hematuria Intake Note: New patient presents today for initial visit for microscopic hematuria Urology Medication:None Blood Thinner:None Antibiotic Allergies:None Allergies naproxen Allergy (Unknown, Verified 09/06/24 13:11) GI bleed NSAIDS (Non-Steroidal Anti-Inflamma Allergy (Unknown, Verified 09/06/24 13:11) GI Bleed Medication List - Last Reconciled 09/06/24 by IRVING VargasP- albuterol sulfate 90 mcg/actuation 2 puffs inhalation Q4-6H PRN 90 days famotidine 40 mg PO QAM fluticasone propion-salmeterol 250-50 mcg/dose (Wixela Inhub) 1 inh inhalation BID 90 days gabapentin 300 mg PO Q12H 3 months ipratropium bromide 2 sprays intranasal BID 3 months losartan 50 mg PO DAILY montelukast 10 mg PO DAILY HPI Comments Details: Carlyle is a very pleasant 83-year-old male patient of Dr. Brewer. He has a past medical history of anemia, essential tremors, COPD, vitamin-D deficiency, dyslipidemia, peripheral polyneuropathy, degenerative arthritis of cervical spine, chronic GERD, and allergic rhinitis. He presents to the office today as a new patient for gross hematuria. In discussion with the patient today he reports over the last 3 months he has been having intermittent episodes of gross hematuria at which time he followed up with his PCP in a renal ultrasound was ordered for further assessment evaluation and referral to Urology was made. These results were reviewed and communicated with the patient today. 07/24 There is two mildly complex cyst in the right kidney largest in the mid pole measuring 3.3 cm. These may be consistent with a Bosniak 2 type cyst do not require follow-up given appearance per radiology report. Bilateral kidneys with no hydronephrosis, suspicious lesions, or calculi. He continues to report intermittent episodes of gross hematuria. Last episode was 2-3 weeks ago. He does report a previous history of nicotine dependence however quit 55 years ago. He reports previously smoking 1-3 packs of cigarettes per day for 15 years. He denies any known workplace chemical exposure. In office urinalysis results reviewed with the patient today 3+ microscopic hematuria. We did discussed at length potential causes of gross hematuria as well as further workup to include imaging and cystoscopy. When asked he does report urinary dribbling. He otherwise denies urinary urgency, urinary frequency, incontinence, nocturia, hematuria, dysuria, foul smelling urine, changes to urinary stream, flank pain, fever, and or chills. He is happy with his current voiding parameters. I discussed reasons for blood in the urine may include but are not limited to kidney stones, cancer in the urinary tract, BPH, kidney stone disease or inflammatory conditions of the urinary tract. I have discussed workup to include cystoscopy evaluation. We discussed pelvic floor exercises to assist with urinary dribbling. All questions were answered. He otherwise offers no other issues or concerns at this time. In review of patient's chart it appears PSA 09/17 6.4 16%free PSA and PSA 09/17 5.4. We did discussed potential causes of elevated PSA as well as redraw of PSA for further assessment evaluation. SHERLEY offered however deferred. [facility] Medical History (Reviewed 09/06/24 @ 13:12 by Genoveva Guillen [facility]) Intermittent lightheadedness Hematuria Anemia Dyspnea on exertion Action tremor Herpes zoster vaccination declined Flu vaccine refused Tremor of both hands COPD exacerbation Vitamin D deficiency Dyslipidemia Peripheral polyneuropathy Degenerative arthritis of cervical spine Chronic GERD Bronchial asthma Allergic rhinitis Surgical History No pertinent past surgical history Social History Housing: House Patient Tobacco Use Status: Former Tobacco user Years Smoked: 12 e-Cigarette/Vaping Use: Never Used Current occupational status: retired Cognitive needs: No Hearing needs: No Vision needs: Yes Review of Systems Const All systems reviewed & are unremarkable except as noted in HPI and below Physical Exam Const General: cooperative, healthy appearing, comfortable, no acute distress, well developed, alert and awake Orientation/consciousness: patient oriented x3 Limitations: no limitations HEENT Head: Yes normal to inspection, Yes normocephalic and Yes atraumatic Ears: hearing grossly normal bilaterally Eyes General: appearance normal, both eyes and all related structures Neck Neck: Yes normal visual inspection and Yes trachea midline Chest Chest palpation & inspection: normal inspection of the chest Resp Effort & Inspection: normal respiratory effort and able to speak in complete sentences Cardio Rate: regular rate GI Inspection: Yes normal to inspection General: Yes no CVA tenderness Back/Spine/Pelvis Back: no CVA tenderness Skin General skin exam: no rashes or lesions noted Neuro General: patient oriented x3 Extrem General: Yes normal to inspection Psych Appearance: grossly normal and well kempt Mental Status: mental status grossly normal Speech and movement: Normal speech and movement present and Clear speech present Affect: normal affect Attitude: cooperative Thought process: Normal thought process present Thought content: Normal thought content present Insight: Fair insight present (Psych) Judgement: Fair judgement present (Psych) Results AMB Urinalysis, Automated UA Leukoctes 0 Caroline/uL Last Edit by Elisa Ramirez on 09/06/24 11:57 UA Nitrite Negative Last Edit by Elisa Ramirez on 09/06/24 11:57 UA Urobilinogen 3.5 mg/dL Last Edit by Elisa Ramirez on 09/06/24 11:57 UA Protein 1 mg/dL Last Edit by Elisa Ramirez on 09/06/24 11:57 UA pH 6.0 Last Edit by Elisa Ramirez on 09/06/24 11:57 UA Blood 200 Candido/uL Last Edit by Elisa Ramirez on 09/06/24 11:57 UA Specific [place] 1.005 Last Edit by Elisa Ramirez on 09/06/24 11:57 UA Ketone Negative Last Edit by Elisa Ramirez on 09/06/24 11:57 UA Bilirubin 0 mg/dL Last Edit by Elisa Ramirez on 09/06/24 11:57 UA Glucose 0 mg/dL Last Edit by Elisa Ramirez on 09/06/24 11:57 Results Reviewed Results Reviewed: Laboratory Last Values Urine pH (Auto) 6.0 09/06/24 11:45 Specific [place] (Auto) 1.005 09/06/24 11:45 Urine Protein (Auto) 1 mg/dL 09/06/24 11:45 Glucose (UA)(Auto) 0 mg/dL 09/06/24 11:45 Urine Ketones (Auto) Negative 09/06/24 11:45 Urine Blood (Auto) 200 Candido/uL 09/06/24 11:45 Urine Nitrite (Auto) Negative 09/06/24 11:45 Urine Bilirubin (Auto) 0 mg/dL 09/06/24 11:45 Urine Urobilinogen (Auto) 3.5 mg/dL 09/06/24 11:45 Leukocyte Esterase (Auto) 0 Caroline/uL 09/06/24 11:45 Date of Service: 06/30/24 Procedure(s): US renal BI FINDINGS: RIGHT KIDNEY: 10.6 x 6 x 1 x 5.8 cm (SAG x AP x TRV). The kidney is normal in size, contour, and infiltrate mildly increased cortical echogenicity. Renal cortical thickness is normal. No calculi or suspicious focal parenchymal lesions. No hydronephrosis. There is a minimally complex pole cyst measuring 1.8 x 1.7 x 1.7 cm, and a minimally complex midpole cyst measuring 2.6 x 3.1 x 3.3 cm. 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 LEFT KIDNEY: 9.9 x 5.4 x 4.5 cm (SAG x AP x TRV). The kidney is normal in size, contour, and demonstrates mildly increased cortical echogenicity. Renal cortical thickness is normal. No calculi or focal parenchymal lesions. No hydronephrosis. IMPRESSION: 1. Mildly increased cortical echogenicity of both kidneys without cortical thinning. Findings suggest mild intrinsic renal disease. 2. No hydronephrosis, suspicious lesions, or calculi. 3. There are 2 mildly complex cysts in the right kidney, largest in the midpole measuring 3.3 cm. These may be consistent with Bosniak 2 type cyst do not are follow-up given appearance. Assessment & Plan Assessment & Plan (1) Elevated PSA: Code(s): R97.20 - Elevated prostate specific antigen [PSA] Category: Medical (2) Gross hematuria: Code(s): R31.0 - Gross hematuria Category: Medical (3) Urinary dribbling: Code(s): N39.43 - Post-void dribbling Category: Medical Plan In office urinalysis results reviewed with the patient today; as noted above; will send for urine cytology. We discussed at length potential causes of gross hematuria, urinary dribbling, and elevated PSA. Will obtain BUN and creatinine for imaging. Will obtain CT urogram for further assessment evaluation. SHERLEY offered however deferred. We discussed pelvic floor exercises to assist with urinary dribbling. We did discuss worsening symptoms. Will obtain redraw of PSA for further assessment evaluation. Follow-up next available in office cystoscopy with imaging and labs to be completed prior; or sooner with any issues, concerns, and or questions. Orders: Orders AMB Urinalysis Automated Today Z13.9 - Encounter for screening, unspecified CT urogram Today R31.0 - Gross hematuria PSA,Total (Free>4and<10) Today R97.20 - Elevated prostate specific antigen [PSA] Blood Urea Nitrogen Today R39.15 - Urgency of urination Creatinine Today R39.15 - Urgency of urination Urine Cytology Today R31.0 - Gross hematuria Patient Instructions: The patient had an opportunity to ask questions regarding the treatment plan. All questions were answered. Physical exam, labs, and imaging were discussed and reviewed in detail. As well as risks, benefits, and discussion of treatment choices. No major barriers to understanding were identified. The patient expressed understanding and agreement with the above treatment plan. The patient was made aware they should contact our office by phone for worsening of their current condition, the appearance of new symptoms, or with any questions or concerns. Compliance is encouraged with any medications and follow up testing that is ordered. It is a privilege to be allowed the opportunity to participate in? your urological care.? Again, if you have any questions or concerns If you have any questions or concerns please do not hesitate to contact me. The office is [phone]. This note is constructed using voice recognition software. While every effort has been made to ensure accuracy public transit specialist errors may have been included. Yours sincerely, XIOMARA Vargas Coding Level of Care Code New Pt Level 3 (61265) Diagnoses Elevated PSA R97.20 Gross hematuria R31.0 Urinary dribbling N39.43
--- OUTSIDE RECORDS SUMMARY | 2024-09-06 11:36 | XMS_ITS | Patient Health Record ---
Author Organization [facility] Address [address] [place] [id number] Care Team Providers Care Set Up Mechanic Stamping Machines Name Role Phone Myesha MYLES, Debby Primary Care Provider Chandan Bradley Unavailable [phone] Cristin YAÑEZ, Joon Unavailable Unavailable Reason For Referral No Information Medications Medication SIG (Take, Route, Fr equency, Duration) Notes Start Date End Date Status Omeprazole 20 MG 1 capsule Orally BID for 90 days Active Probiotic Active traMADol HCl 50 MG 1 tablet as needed O rally every 6 hrs Active Multi Vitamin/Minerals Orally Active Glucosamine 500 MG 1 capsule with a corwin l Orally Once a day Active Problems Problem Type SNOMED Code ICD Code Onset Dates Problem Status W/U Status Risk Notes Problem 543330142 Gastroesophageal reflux disease with esophagitis (K21.0) Active confirmed Problem 30261110 Erosive esophagi tis (K22.10) Active confirmed Plan Of Treatment Future Test Test Name Order Date COLONOSCOPY 07/20/2014 UPPER GI ENDOSCOPY 01/20/2017 Insurance Providers Payer Name Payer Address Payer Phone Subscriber Number Group Number Insured Name Patient Relationship to Insured Coverage Start Date Coverage End Date [facility] [address] [place], [place] [id number] JR PAUL Self - patient is the insured Medical (General) History Medical History History ICD Code Denies [place],DM,CVA,Lung disease,renal dise ase UGI Bleed in 10/2016--EGD wit h severe erosive esophagits/gastritis and a moderate-sized HH--was on a chronic ASA 81mg and short course steroids for a rash---needed 2 u PRBC's Colonoscopy [place] [address] Lara with the removal of a small tubular adenoma Followup upper endoscopy in April of 2017 revealed healing of the previous erosive esophagitis--- biopsies negative for De La Rosa's esophagus Surgical History Surgery Date(Month/Year) Lower back herniated disk repair 2009
== END 2024-09-06 11:40 | disposition home or self-care (01) ==
LOC: HO.HUSH 10:38
PROVIDERS: PCP Internal Medicine; Visit Provider Nurse Practitioner Family
DX: R97.20 Elevated prostate specific antigen [PSA] (principal); R31.0 Gross hematuria; N39.43 Post-void dribbling; Z13.9 Encounter for screening, unspecified
CPT/HCPCS: 99203

== ENCOUNTER 2024-09-08 12:55 | Outpatient (REF) | payer MEDICARE, SELFPAY ==
--- OUTSIDE RECORDS SUMMARY | 2024-09-08 12:59 | XMS_ITS | Patient Health Record ---
Author Organization [facility] Address [address] [place] [phone] Care Team Providers Care Importer Or Exporter Name Role Phone Myesha MYLES, Debby Primary Care Provider Chandan Bradley Unavailable [phone] Cristin YAÑEZ, Joon Unavailable Unavailable Reason For [...] Problem Status W/U Status Risk Notes Problem [id number] Gastroesophageal reflux disease with esophagitis (K21.0) Active confirmed Problem 00374537 Erosive esophagi tis (K22.10) Active confirmed Plan Of Treatment Future Test Test Name Order Date COLONOSCOPY 07/20/2014 UPPER GI ENDOSCOPY 01/20/2017 Insurance Providers Payer Name Payer Address Payer Phone Subscriber Number Group Number Insured Name Patient Relationship to Insured Coverage Start Date Coverage End Date [facility] [address] [place], [place] [id number] JR PAUL Self - patient is the insured Medical (General) History Medical History History ICD Code Denies [place],DM,CVA,Lung disease,renal dise ase UGI Bleed in 10/2016--EGD [...]
== END 2024-09-08 12:56 | disposition home or self-care (01) ==
LOC: HO.HMGCLDS 12:55
PROVIDERS: PCP Internal Medicine; Visit Provider Nurse Practitioner Family
DX: R89.6 Abnormal cytological findings in specimens from other organs, systems and tissues (principal)
CPT/HCPCS: 88112

== ENCOUNTER 2024-10-26 06:59 | Outpatient (REF) | payer MEDICARE, SELFPAY ==
--- NOTE | ~2024-10-26 | CT_ITS ---
EXAMINATION: CT ABDOMEN AND PELVIS WITHOUT AND WITH CONTRAST CLINICAL INFORMATION: R31.0. Gross hematuria. COMPARISON: Correlated to renal ultrasound dated June 30, 2024. TECHNIQUE: Noncontrast CT of the abdomen and pelvis is performed followed by split bolus contrast-enhanced images using 85 mL Omnipaque 350 contrast. Postcontrast imaging is performed during the combined nephrogram and excretion phase. Sagittal and coronal reformatted images were obtained on the technologist's workstation for both the precontrast and postcontrast phases. This CT examination was performed using dose optimization techniques as appropriate, variously including the following: *Automated exposure control *Adjustment of mA and/or kV according to patient size (this includes techniques or standardized protocols for targeted exams where dose is matched to indication/reason for exam; i.e. extremities or head) *Use of iterative reconstruction technique DLP: 734 mGy centimeter. FINDINGS: LIVER, GALLBLADDER, AND BILIARY TREE: Liver measures 18 cm. There is a 1.2 cm hypodensity measuring 17 Hounsfield units in the left hepatic lobe. Main portal veins, hepatic veins and intrahepatic portion of the IVC are patent. Gallbladder is nondistended. No pericholecystic fluid collection or gallbladder wall thickening. No intrahepatic or extrahepatic biliary ductal dilatation. PANCREAS: No focal lesion. No main pancreatic ductal dilatation. No peripancreatic fluid collections. SPLEEN: 10 cm. No mass. ADRENAL GLANDS: No nodular lesions. KIDNEYS AND URETERS: Right kidney: No hydronephrosis. No nephrolithiasis. There is a 4.4 cm exophytic nonenhancing fluid density lesion in the posterior lateral midportion. There is a 2 cm exophytic fluid density in the upper pole. There are less than 1 cm fluid density centered at the parapelvic region. No gross enhancing lesion. Normal urinary excretion into the collecting system. Left kidney: No hydronephrosis. No nephrolithiasis. Multiple parapelvic fluid density lesions measuring less than 2 cm. No gross enhancing renal mass. Normal urinary excretion into the collecting system. BLADDER: There is a large 6 x 3 cm, colyflower slightly hyperdense lesion/mass attached to the right lateral wall of the bladder. GASTROINTESTINAL TRACT: Abundant stool. No intestinal obstruction pattern. No pneumatosis intestinalis. No pneumoperitoneum. No ascites. I do not see the appendix. No gross diverticulum. ABDOMINAL WALL: Small fat-containing umbilical hernia. Diastases abdominal rectus muscles. Small fat-containing inguinal and likely femoral hernias. LYMPH NODES: Highly prominent mesenteric and retroperitoneal lymph nodes. Prominent lymph nodes in the inguinal regions. VASCULAR: Mixed plaques in the abdominal aorta wall and iliac arteries without gross aneurysm or dissection. Calcified plaques in the origin of the celiac trunk and main renal arteries are calcified plaque in the aortic valve and likely mitral valve.. PELVIC VISCERA: The prostate gland is not enlarged. OSSEUS STRUCTURES: S-shaped curvature of the thoracolumbar spine. Multilevel thoracic and lumbar spondylosis pronounced at at L1 to, L2-3 and L3-4 levels. No gross lytic or blastic lesions. Degenerative changes in the symphysis pubis and sacroiliac joints. CT/CT urogram IMPRESSION: 6 x 3 cm mass, right lateral wall of the bladder. Recommend direct inspection. No hydronephrosis or nephrolithiasis. Bilateral renal cysts. Electronically signed by: Kelechi Abbott MD 10/26/2024 08:37 AM EDT
--- OUTSIDE RECORDS SUMMARY | 2024-10-26 07:01 | XMS_ITS | Patient Health Record ---
Author Organization [facility] Address [address] [place] [phone] Care Team Providers Care Catshovel Driver Name Role Phone Myesha MYLES, Debby Primary Care Provider Chandan Bradley Unavailable [phone] Cristin YAÑEZ, Joon Unavailable Unavailable Reason For [...] Problem Status W/U Status Risk Notes Problem 521300949 Gastroesophageal reflux disease with esophagitis (K21.0) Active confirmed Problem 49604158 Erosive esophagi tis (K22.10) Active confirmed Plan Of Treatment Future Test Test Name Order Date COLONOSCOPY 07/20/2014 UPPER GI ENDOSCOPY 01/20/2017 Insurance Providers Payer Name Payer Address Payer Phone Subscriber Number Group Number Insured Name Patient Relationship to Insured Coverage Start Date Coverage End Date [facility] [address] [place], [place] [id number] JR PAUL Self - patient is the insured Medical (General) History Medical History History ICD Code Denies [place],DM,CVA,Lung disease,renal dise ase UGI Bleed in 10/2016--EGD [...]
--- OUTSIDE RECORDS SUMMARY | 2024-10-26 07:01 | XMS_ITS | Clinical Summary ---
Author Organization [facility] Address [address] [facility] [address] [place] [address] Phone Care Team Providers Care Water Plant Operator Name Role Phone Unavailable Primary Care Provider Unavailabl e Allergies Active Allergy Reactions Criticality Noted Date Comments Lisinopril Cough 12/15/2017 Naproxen 08/19/2017 ulcer Medications Lactobacillus rhamnosus GG (CULTURELLE) 15 billion cell CpSP Take 15 Billion Units by mouth daily. Active glucosamine sulfate (GLUCOSAMINE) 500 mg Tab Take 500 mg by mouth daily. Active multivitamins capsule one daily Active losartan (COZAAR) 50 MG tablet Take 50 mg by mouth daily. 9 Active losartan (COZAAR) 50 MG tablet TAKE 1 TABLET DAILY (NOTE DISCONTINUE LISINOPRIL DUE TO COUGH) 90 tablet 2 9 Active Additional Information Patient not taking.Reported on 08/05/2018 loratadine (CLARITIN) 10 mg tablet Take 10 mg by mouth daily. Active omeprazole (PRILOSEC) 20 MG capsule TAKE 1 CAPSULE TWICE A DAY 180 capsule 0 Active Active Problems Problem Noted Date Diagnosed Date Gastroesophageal reflux disease with esophagitis 08/05/2018 Right leg pain 04/28/2018 Lumbar radiculopathy, chronic 04/28/2018 Colonoscopy refused 04/28/2018 Essential hypertension 10/14/2017 Benign essential tremor 04/16/2017 Elevated PSA 04/16/2017 Tubular adenoma of colon 04/16/2017 Borderline hyperlipidemia 04/16/2017 History of GI bleed 04/16/2017 Resolved Problems Problem Noted Date Diagnosed Date Resolved Date Acute upper respiratory infection 08/19/2017 04/28/2018 Immunizations Immunization Administration Dates Next Due Pneumococcal conjugate PCV13 04/12/2015 Family History Medical History Relation Comments CV disease Father 2 Relation Status Comments Father 1 Father 2 Social History Tobacco Use Types Packs/Day Years Used Date Smoking Tobacco: Former Cigarettes 3 10 0 03/02/1959 - 03/02/1969 Smokeless Tobacco: Never Alcohol Use Standard Drinks/Week Comments Yes 0 (1 standard drink = 0.6 oz pur e alcohol) Average of 1-2 drink per month Education Answer Date Recorded Are you interested in more education? Not on kassi e 06/27/2022 Are you concerned about learning? Not on file 06/27/2022 No 06/27/2022 No 06/27/2022 Digital Access Answer Date Recorded No 07/28/2022 No 07/28/2022 Reliable internet access at home? Not on file 07/28/2022 Device with a working camera? Not on file Sex and Gender Information Value Date Recorded Sex Assigned at Not on file Legal Sex Male 10:10 PM EDT Gender Identity Not on file Sexual Orientation Not on file Last Filed Vital Signs Vital Sign Reading Time Taken Comments Blood Pressure 100/60 08/05/2018 10:22 AM EDT Pulse 71 08/05/2018 10:22 AM EDT Temperature 36.7 C (98.1 F) 08/05/2018 10:22 AM EDT Respiratory Rate 16 08/05/2018 10:22 AM EDT Oxygen Saturation 95% 08/05/2018 10:22 AM EDT Inhaled Oxygen Concentration - - Weight 85.3 kg (188 lb) 08/05/2018 10:22 AM EDT Height 174 cm (5' 8.5 ) 08/05/2018 10:22 AM EDT Body Mass Index 28.17 08/05/2018 10:22 AM EDT Plan of Treatment Health Maintenance Due Date Last Done Comments Adult Td,Tdap Booster 1940 BLOOD PRESSURE 1942 ZOSTER VACCINES (1 of 2) 1992 RSV VACCINE (1 - 1-dose 75+ series) 2017 CREATININE LEVEL 12/15/2018 12/15/2017 POTASSIUM LEVEL 12/15/2018 12/15/2017 DEPRESSION SCREENING 08/06/2019 08/05/2018 COVID-19 VACCINE (3 - 2024-2 5 season) 2023 04/23/2020, 04/02/2020 PNEUMOCOCCAL VACCINES (50+ years) Completed 01/06/2019, 04/12/2015, 04/12/2010 HEPATITIS A VACCINES Aged Out No long er eligible based on patient's age to complete this topic HIB VACCINES Aged Out No longer eligi ble based on patient's age to complete this topic MENINGOCOCCAL VACCINES (ACWY) Aged Out No longer eligible based on patient's age to complete this topic MENINGOCOCCAL VACCINES (B) Aged Out N o longer eligible based on patient's age to complete this topic Medical Devices Not on file Procedures Procedure Name Priority Date/Time Associated Diagnosis Comments BASIC METABOLIC PANEL Routine 12/15/2017 1:39 PM EDT Essential hypertension from Last 3 Months or Most Recently Relevant to Health Maintenance Results * (ABNORMAL) Basic metabolic panel (12/15/2017 1:39 PM EDT) SODIUM 138 133 - 146 mmol/L [facility] CHLORIDE 98 96 - 108 mmol/L [facility] POTASSIUM 4.0 3.3 - 5.1 mmol/L [facility] CO2 25 21 - 35 mmol/L [facility] BUN 17 6 - 19 mg/dL [facility] CREATININE 1.00 0.5 - 1.5 mg/dL [facility] GLUCOSE 103(H) 70 - 99 mg/dL [facility] CALCIUM 8.9 8.4 - 10.3 mg/dL [facility] EGFR 73 >59 mL/min/1.7 3m2 [facility] Comment:If patient is black, multiply result by 1.159. Estimated glomerular filtration rate calculated using the CKD-EPI equation. ANION GAP 19 10 - 20 mmol/L [facility] Blood 12/15/2017 1:39 PM EDT 12/15/2017 7:57 PM EDT us Debby Brunner NP LAB BLOOD ORDERABLES Final Resu lt [facility] [address] [place] [address] from Last 3 Months or Most Recently Relevant to Health Maintenance Insurance MEDICARE PPO BLUE REPLACEMENT MEDICARE PPO BLUE REPLACEMENT MEDICARE PPO BLUE REPLACEMENT MEDICARE PPO BLUE REPLACEMENT MEDICARE PPO BLUE REPLACEMENT MEDICARE PPO BLUE REPLACEMENT [facility] MEDICARE PPO BLUE REPLACEMENT [place] [address] [address] MEDICARE PPO BLUE REPLACEMENT [facility] MEDICARE PPO BLUE REPLACEMENT Additional Source Comments The information contained in this document represents components of the legal health record. It is not the complete legal health record.[facility]
[2024-10-26 07:45] LABS: Blood Urea Nitrogen 23 mg/dL (9-16); Estimated Glomerular Filt Rate 44
[2024-10-26] MEDS: iohexoL 350 MG/ML 100 ML INFUS..BTL IV (08:20)
[2024-10-26 08:40] LABS: PSA,Total (Free>4and<10) 10.60 ng/mL (0.00-4.00)
== END 2024-10-26 07:00 | disposition home or self-care (01) ==
LOC: HO.CT 06:59
PROVIDERS: PCP Internal Medicine; Visit Provider Nurse Practitioner Family
DX: R39.15 Urgency of urination (principal); R97.20 Elevated prostate specific antigen [PSA]; R31.0 Gross hematuria; Z12.5 Encounter for screening for malignant neoplasm of prostate
CPT/HCPCS: 36415; 74178; 82565; 84153; 84520; Q9967

== ENCOUNTER → 2024-10-26 07:23 | Outpatient (BNV) | payer MEDICARE, SELFPAY | PROVIDERS: PCP Internal Medicine; Visit Provider Radiology Diagnostic Radiology | DX: R31.0 Gross hematuria (principal) | CPT/HCPCS: 74178 ==

== ENCOUNTER 2024-11-02 13:29 | Outpatient (REF) | payer MEDICARE, SELFPAY | END 2024-11-02 13:30 | disposition home or self-care (01) | LOC: HO.LAB 13:29 | PROVIDERS: PCP Internal Medicine; Visit Provider Urology | DX: C67.9 Malignant neoplasm of bladder, unspecified (principal); R31.0 Gross hematuria; N39.43 Post-void dribbling | CPT/HCPCS: 52000; 88121; 99212 ==

== ENCOUNTER 2024-11-02 13:29 | Outpatient (AMB) | payer MEDICARE, SELFPAY ==
--- NOTE | 2024-11-02 13:33 | MHC.OFFVIS ---
Intake Visit Reasons: Cysto/Labs Intake Note: patient presents today for CYSTOSCOPY for microscopic hematuria Imaging : CT 10/26/2024 Labs done PSA 10.60 Urology Medication:None Blood Thinner:None Antibiotic Allergies:None Auto Body Repair Estimator Required: No Accompanied by: Self / Same As Patient Allergies naproxen Allergy (Unknown, Verified 11/02/24 13:34) GI bleed NSAIDS (Non-Steroidal Anti-Inflamma Allergy (Unknown, Verified 11/02/24 13:34) GI Bleed HPI Comments Details: Carlyle is a pleasant male. He is a patient of Dr. Brewer. He is seen for the following urologic conditions - gross hematuria - elevated PSA Here for check cystoscopy CT urogram performed - bilateral renal cysts, 6 x 3 cm bladder lesion right sidewall Required meatal dilatation to performed cystoscopy. Patient with glandular hypospadias. 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 service did include a period of time on [place] Cystoscopy findings as above Elevated PSA Progressive - 09/17 5.4, 10/24 10.6 [facility] Medical History Intermittent lightheadedness Hematuria Anemia Dyspnea on exertion Action tremor Herpes zoster vaccination declined Flu vaccine refused Tremor of both hands COPD exacerbation Vitamin D deficiency Dyslipidemia Peripheral polyneuropathy Degenerative arthritis of cervical spine Chronic GERD Bronchial asthma Allergic rhinitis Surgical History No pertinent past surgical history Social History Housing: House Patient Tobacco Use Status: Former Tobacco user Years Smoked: 12 e-Cigarette/Vaping Use: Never Used Current occupational status: retired Cognitive needs: No Hearing needs: No Vision needs: Yes Review of Systems Const Denies chills and Denies fever(s) Card Reports no additional complaints and Denies syncope Resp Denies cough GI Denies abdominal pain and Denies heartburn Reports as per HPI and Denies change in libido Neuro Denies syncope Psych Denies change in libido Endo Denies change in libido Physical Exam Const General: cooperative, healthy appearing, comfortable and no acute distress Orientation/consciousness: patient oriented x3 HEENT Face and sinus: Yes normal facial exam Mouth: moist mucous membranes Neck Neck: Yes normal visual inspection, Yes full ROM and Yes trachea midline Chest Chest palpation & inspection: normal inspection of the chest Resp Effort & Inspection: normal respiratory effort, able to speak in complete sentences and no respiratory distress GI Inspection: Yes normal to inspection Back/Spine/Pelvis Cervical Spine: normal cervical lordosis Thoracic/Lumbar Spine: thoracic and lumbar spine normal to inspection Skin General skin exam: no rashes or lesions noted Neuro General: patient oriented x3, gait normal, tone normal and moves all extremities Extrem General: Yes normal to inspection and Yes capillary refill normal Office Procedures Cystoscopy Consent Discussed risk and benefit or proposed procedure with the patient. Information consent for procedure given to the patient. Discussed technical aspects, risks, benefits and alternatives in full. Addressed all of the patient's questions and concerns regarding the procedure. The patient demonstrated knowledge and understanding. They wish to proceed with this procedure. Preparation The patient was prepped in the usual manner. A food service attendant was present and in the room. Genitalia was prepped with betadine solution in a sterile manner. Lidocaine Jelly 2% was placed into the urethra and 16Fr flexible Olympus cystoscope was inserted into the meatus after adequate lubrication. Procedure Cystoscopy performed using a disposable Urovue digital 16 Emirati cystoscope. Meatus circumcised - glandular hypospadias Urethra anterior and posterior urethra normal Prostatic Urethra unremarkable Bladder examination with retroflexion of cystoscope Bladder Orifices normal shape and position - difficult to visualize given 6 x 3 cm lesion seen on right sidewall consistent with bladder cancer [id number] DISPOSABLE SCOPE URO-G FLEXIBLE SCOPE Procedure code (CPT) selection complete Office Meds lidocaine HCl 2 % mucosal jelly in applicator Performing Provider: Varun Doshi MD Performing Location: [facility] Administered by: Chris Barron LPN on 11/02/24 13:53 Dose Route Admin Location Dispensed Lot Number Expiration Date ND Rectifying Operator 10 mL intra-urethral 10 mL nitrofurantoin monohydrate/macrocrystals 100 mg capsule Performing Provider: Varun Doshi MD Performing Location: [facility] Administered by: Chris Barron LPN on 11/02/24 13:53 Dose Route Admin Location Dispensed Lot Number Expiration Date ND Rectifying Operator 100 mg PO 1 cap Assessment & Plan Assessment & Plan (1) Bladder cancer: Code(s): C67.9 - Malignant neoplasm of bladder, unspecified Category: Medical Plan Risks, benefits and alternatives to therapy were discussed. These include but are not limited to infection, bleeding, damage to local organs and tissues, need for further interventions. Anesthetic risks regarding cardiac arrhythmia, blood clots, and potential mortality were discussed. The patient understands the typical recovery time and the outpatient nature of the procedure. After consideration of these risks the patient gives full informed consent and they wish to move ahead with the procedure. Plan Transurethral resection of bladder tumor - given size will hold off on addition of immuno therapeutic agent Orders: Orders FISH Bladder Cancer 11/02/24 R31.0 - Gross hematuria AMB Urinalysis Automated Today Z13.9 - Encounter for screening, unspecified AMB Cystoscopy 11/02/24 N39.43 - Post-void dribbling, R31.0 - Gross hematuria Patient Instructions: This note is constructed using voice recognition software. While every effort has been made to ensure accuracy salon designer errors may have been included. Imaging studies, laboratory and physical exam results were discussed and reviewed in detail. No major barriers to patient understanding were identified. An opportunity to ask questions regarding the treatment plan was provided. All questions were answered. The patient expressed understanding and agreement with the above treatment plan. The patient is aware they should contact our office by phone for worsening of their current condition or the appearance of new urologic symptoms. Compliance is encouraged with any medications and followup testing that is ordered. It is a privilege to participate in the urologic care of your patient. If you have any questions or concerns regarding treatment for the above conditions, or other urologic issues, please do not hesitate to contact me. The office telephone contact is [phone]. Sincerely, Dr Varun Doshi MD, [facility] - Urology Compassionate Specialist Care for the Genitourinary System Coding Level of Care Code Est Pt Level 4 (53227) Complex EM visit Add On G2211 Diagnoses Bladder cancer C67.9 CPT Codes Cystoscopy - CPT: 06556-[id number] ([id number])
--- OUTSIDE RECORDS SUMMARY | 2024-11-02 15:41 | XMS_ITS | Clinical Summary ---
Author Organization [facility] Address [address] [facility] [address] [place] [address] Phone Care Team Providers Care Tank Systems Maintainer Name Role Phone Unavailable Primary Care Provider [...] LEVEL 12/15/2018 12/15/2017 DEPRESSION SCREENING 08/06/2019 08/05/2018 INFLUENZA VACCINE (#1) 2024 COVID-19 VACCINE (3 - 2024-2 6 season) 2024 04/23/2020, 04/02/2020 PNEUMOCOCCAL VACCINES (50+ years) Completed [...] EDT) SODIUM 138 133 - 146 mmol/L [facility] CHLORIDE 98 96 - 108 mmol/L [facility] POTASSIUM 4.0 3.3 - 5.1 mmol/L [facility] CO2 25 21 - 35 mmol/L [facility] BUN 17 6 - 19 mg/dL [facility] CREATININE 1.00 0.5 - 1.5 mg/dL [facility] GLUCOSE 103(H) 70 - 99 mg/dL [facility] CALCIUM 8.9 8.4 - 10.3 mg/dL [facility] EGFR 73 >59 mL/min/1.7 3m2 [facility] Comment:If patient is black, multiply result by 1.159. Estimated glomerular filtration rate calculated using the CKD-EPI equation. ANION GAP 19 10 - 20 mmol/L [facility] Blood 12/15/2017 1:39 PM EDT 12/15/2017 7:57 PM EDT us Debby Brunner NP LAB BLOOD ORDERABLES Final Resu lt [facility] [address] [place] [address] from Last 3 Months or Most Recently Relevant to Health Maintenance [place] [address] [address] MEDICARE PPO BLUE [address] [place] [address] MEDICARE PPO BLUE [address] [place] [place] [address] MEDICARE PPO BLUE REPLACEMENT MEDICARE PPO BLUE REPLACEMENT MEDICARE PPO BLUE REPLACEMENT MEDICARE PPO BLUE REPLACEMENT [place] [address] MEDICARE PPO BLUE REPLACEMENT [place] [address] MEDICARE PPO BLUE REPLACEMENT [facility] MEDICARE PPO BLUE REPLACEMENT Additional Source Comments The information contained in this document represents components of the legal health record. It is not the complete legal health record.[facility]
--- OUTSIDE RECORDS SUMMARY | 2024-11-02 15:41 | XMS_ITS | Patient Health Record ---
Author Organization [facility] Address [address] [place] [id number] Care Team Providers Care Golf Club Maker Name Role Phone Myesha MYLES, Debby Primary Care Provider Chandan Bradley Unavailable [phone] Cristin YAÑEZ, Joon Unavailable Unavailable Reason For [...] Problem Status W/U Status Risk Notes Problem [id number] Gastroesophageal reflux disease with esophagitis (K21.0) Active confirmed Problem [id number] Erosive esophagi tis (K22.10) Active confirmed Plan Of Treatment Future Test Test Name Order Date COLONOSCOPY 07/20/2014 UPPER GI ENDOSCOPY 01/20/2017 Insurance Providers Payer Name Payer Address Payer Phone Subscriber Number Group Number Insured Name Patient Relationship to Insured Coverage Start Date Coverage End Date [facility] [address] [place], [place] [id number] [phone] [id number] JR PAUL Self - patient is the insured Medical (General) History Medical History History ICD Code Denies [place],DM,CVA,Lung disease,renal dise ase UGI Bleed in 10/2016--EGD [...]
== END 2024-11-02 14:37 | disposition home or self-care (01) ==
LOC: HO.HUSH 13:30
PROVIDERS: PCP Internal Medicine; Visit Provider Urology
DX: R31.0 Gross hematuria (principal); N39.43 Post-void dribbling
CPT/HCPCS: 52000

== ENCOUNTER → 2024-11-03 08:48 | Outpatient (BNV) | payer MEDICARE, SELFPAY | PROVIDERS: PCP Internal Medicine; Visit Provider Urology | DX: Z13.9 Encounter for screening, unspecified (principal) | CPT/HCPCS: 81003 ==

== ENCOUNTER 2024-11-05 06:53 | Outpatient (REF) | payer MEDICARE, SELFPAY ==
--- OUTSIDE RECORDS SUMMARY | 2024-11-05 06:57 | XMS_ITS | Clinical Summary ---
Author Organization [facility] Address [address] [facility] [address] [place] [address] Phone Care Team Providers Care Manager Floor Name Role Phone Unavailable Primary Care Provider [...] EDT) SODIUM 138 133 - 146 mmol/L [facility] CHLORIDE 98 96 - 108 mmol/L [facility] POTASSIUM 4.0 3.3 - 5.1 mmol/L [facility] CO2 25 21 - 35 mmol/L [facility] BUN 17 6 - 19 mg/dL [facility] CREATININE 1.00 0.5 - 1.5 mg/dL [facility] GLUCOSE 103(H) 70 - 99 mg/dL [facility] CALCIUM 8.9 8.4 - 10.3 mg/dL [facility] EGFR 73 >59 mL/min/1.7 3m2 [facility] Comment:If patient is black, multiply result by 1.159. Estimated glomerular filtration rate calculated using the CKD-EPI equation. ANION GAP 19 10 - 20 mmol/L [facility] Blood 12/15/2017 1:39 PM EDT 12/15/2017 7:57 PM EDT us Debby Brunner NP LAB BLOOD ORDERABLES Final Resu lt [facility] [address] [place] [address] from Last 3 Months or Most Recently Relevant to Health Maintenance [place] [address] [place] [address] MEDICARE [address] [address] [place] [address] MEDICARE PPO [address] [place] [address] [place] [address] MEDICARE PPO BLUE REPLACEMENT MEDICARE PPO BLUE REPLACEMENT MEDICARE PPO BLUE REPLACEMENT MEDICARE PPO BLUE [place] [address] [place] [address] MEDICARE [address] [place] [place] [address] MEDICARE PPO BLUE REPLACEMENT [facility] MEDICARE PPO BLUE REPLACEMENT Additional Source Comments The information contained in this document represents components of the legal health record. It is not the complete legal health record.[facility]
--- OUTSIDE RECORDS SUMMARY | 2024-11-05 06:57 | XMS_ITS | Patient Health Record ---
Author Organization [facility] Address [address] [place] [address] Care Team Providers Care Grill Chef Name Role Phone Myesha MYLES, Debby Primary Care Provider Chandan Bradley Unavailable [phone] Cristin YAÑEZ, Joon Unavailable Unavailable Reason For [...] Problem Status W/U Status Risk Notes Problem [id number] Gastroesophageal reflux disease with esophagitis (K21.0) Active confirmed Problem 47255576 Erosive esophagi tis (K22.10) Active confirmed Plan Of Treatment Future Test Test Name Order Date COLONOSCOPY 07/20/2014 UPPER GI ENDOSCOPY 01/20/2017 Insurance Providers Payer Name Payer Address Payer Phone Subscriber Number Group Number Insured Name Patient Relationship to Insured Coverage Start Date Coverage End Date [facility] [address] [place], [place] [id number] JR PAUL Self - patient is the [...]
[2024-11-05 11:09] LABS: MANUAL DIFF FLAG NO
[2024-11-05 11:11] LABS: Hematocrit 39.0 % (42.0-52.0); Hemoglobin 13.2 g/dl (14.0-18.0); Imm Gran Abs Auto 0.01 X10*3/uL (0.00-0.03); Imm Gran Pct Auto 0.2 % (0.0-0.4); Lymphocytes Absolute Auto 2.0 X10*3/uL (1.2-4.9); Mean Corpuscular HGB Conc 33.8 g/dl (31.0-36.0); Mean Corpuscular Hemoglobin 32.4 pg (27.0-33.0); Mean Corpuscular Volume 95.8 fL (80.0-98.0); NRBC Abs Auto 0.000 X10*3/uL (0.0-0.012); NRBC Pct Auto 0.0 /100WBC (0.0-0.2); Platelet Count 263 X10*3/uL (160-400); Red Blood Count 4.07 X10*6/uL (4.60-5.80); White Blood Count 5.7 X10*3/uL (4.8-10.8)
[2024-11-05 11:34] LABS: Alanine Aminotransferase 31 U/L (0-40); Anion Gap 12 (12-20); Aspartate Amino Transferase 43 U/L (5-37); Blood Urea Nitrogen 28 mg/dL (9-16); Calcium 9.6 mg/dL (8.4-10.2); Carbon Dioxide 29 mmol/L (22-29); Chloride 103 mmol/L (96-108); Cholesterol 221 mg/dL (<200); Estimated Glomerular Filt Rate 43; HDL Cholesterol 49 mg/dL (>40); Iron 65 mcg/dL (45-160); Percent Iron Saturation 26 % (15-50); Potassium 3.9 mmol/L (3.3-5.1); Sodium 140 mmol/L (135-145); Total Iron Binding Capacity 252 mcg/dL (228-428); Triglycerides 132 mg/dL (<150); Unsaturated Iron Binding 187 ug/dL
== END 2024-11-05 06:54 | disposition home or self-care (01) ==
LOC: HO.HMGCLDS 06:53
PROVIDERS: PCP Internal Medicine; Visit Provider Internal Medicine
DX: I10 Essential (primary) hypertension (principal); E78.5 Hyperlipidemia, unspecified; D64.9 Anemia, unspecified
CPT/HCPCS: 36415; 80048; 80061; 83540; 84450; 84460; 85025

== ENCOUNTER 2024-11-07 09:05 | Outpatient (AMB) | payer MEDICARE, SELFPAY ==
--- NOTE | 2024-11-07 09:13 | A.OFFPC_ITS ---
Vital Signs 11/07/24 09:14 Height 5 ft 9 in Weight 183 lb BMI 27.0 BP 120/80 Blood Pressure Location Lt brachial Position Sitting Respiration 15 Pulse 61 Pulse Source Pulse Oximeter Temp 97.7 F Temp Source Oral Pulse Oximetry (%) 96 Oxygen Delivery Method Room Air Intake Visit Reasons: follow up Intake Note: Pt is here today for his f/u lab results Allergies naproxen Allergy (Unknown, Verified 11/07/24 09:41) GI bleed NSAIDS (Non-Steroidal Anti-Inflamma Allergy (Unknown, Verified 11/07/24 09:41) GI Bleed Medication List - Last Reconciled 11/07/24 by Umm Brewer MD albuterol sulfate 90 mcg/actuation 2 puffs inhalation Q4-6H PRN 90 days famotidine 40 mg PO QAM fluticasone propion-salmeterol 250-50 mcg/dose (Wixela Inhub) 1 inh inhalation BID 90 days gabapentin 300 mg PO Q12H 3 months ipratropium bromide 2 sprays intranasal BID 3 months losartan 50 mg PO DAILY montelukast 10 mg PO DAILY Tobacco use date assessed: 11/07/24 Fall risk assessment: No Falls in past year Last assessed Fall Risk: 11/07/24 Dental Screening Dental Screen Date: 11/07/24 Did you have a dental visit in the last 12 months?: Yes Did you have a dental problem in the last 6 months where you did not have access to dental care?: No Was dental information given to patient?: Patient has dentist HPI follow up HPI Details - The patient is an 84-year-old male his tory of bladder cancer, diagnosed last week, with a 6 x 3 cm lesion identified in the right wall of the bladder. - A transurethral resection of the bladd er tumor (TURBT) is planned, with a prostate biopsy to be conducted simultaneously. - The patient has a history of renal cys ts, which were noted on a CT urogram but are not currently concerning. - Anemia has been noted, attributed to d ecreased erythropoietin production due to age-related kidney function decline. - The patient experiences persistent low er back pain, likely due to arthritis [facility] Medical History (Updated 11/07/24 @ 09:55 by Umm Brewer MD) Mild chronic anemia Intermittent lightheadedness Hematuria Anemia Dyspnea on exertion Action tremor Herpes zoster vaccination declined Flu vaccine refused Tremor of both hands COPD exacerbation Vitamin D deficiency Dyslipidemia Peripheral polyneuropathy Degenerative arthritis of cervical spine Chronic GERD Bronchial asthma Allergic rhinitis Surgical History No pertinent past surgical history Social History (Updated 11/09/24 @ 12:26 by Syeda Conway RN) Housing: House Patient Tobacco Use Status: Former Tobacco user Years Smoked: 12 e-Cigarette/Vaping Use: Never Used Current occupational status: retired Sexual orientation: Straight/Heterosexual Gender identity: Male Cognitive needs: No Hearing needs: No Vision needs: Yes Questionnaire PHQ-9 Over the last 2 weeks, how often have you been bothered by any of the following problems? 1. Little interest or pleasure in doing things: not at all 2. Feeling down, depressed, or hopeless: not at all 3. Trouble falling or staying asleep, or sleeping too much: not at all 4. Feeling tired or having little energy: not at all 5. Poor appetite or overeating: not at all 6. Feeling bad about yourself - or that you are a failure or have let yourself or your family down: not at all 7. Trouble concentrating on things, such as reading the newspaper or watching television: not at all 8. Moving or speaking so slowly that other people could have noticed. Or the opposite - being so fidgety or restless that you have been moving around a lot more than usual: not at all 9. Thoughts that you would be better off or of hurting yourself in some way: not at all Total score: 0 Depression Screening Interpretation: Negative Depression Screening Done: Yes 83066 - PHQ-9 Billing: Yes Source: Developed by Drs. Chandan Loera, Aspen Marrero, Dylan Shields and colleagues, with an educational lore from [employer]. Thrive Questionnaire Date Thrive assessed: 03/22/24 I am a: Patient What is your living situation today?: I have a steady place to live Within the past 12 months, did the food you bought not last and you didn't have the money to get more?: Never true Within the past 12 months, did you worry whether your food would run out before you got money to buy more?: Never true Do you have trouble paying for medicines?: No Do you have trouble getting transportation to medical appointments?: No Do you have trouble paying your heating and electricity bill?: No Do you have trouble taking care of your child, family member or friend?: No Do you have trouble with day-to-day activities such as bathing, preparing meals, shopping, managing finances, etc.?: No Are you currently unemployed and looking for a job?: No Are you interested in more education?: No Please select the resources that you would like help with: None Currently or been in a relationship where the following occur: No concerns reported THRIVE Score: 0 AUDIT C Alcohol Use Questionnaire (AUDIT-C) 1. How often do you have a drink containing alcohol?: Never Total Score: 0 Score Reviewed/Action Taken: Yes NELLY-7 AMB Questionnaire NELLY-7 Date NELLY - 7 assessed: 03/23/24 Source: Developed by Drs. Chandan Loera, Aspen Marrero, Dylan Shields and colleagues, with an educational lore from [employer]. Review of Systems Const Denies chills and Denies fever(s) ENT Reports no additional complaints Card Denies chest pain, Denies syncope, Denies rapid heart rate, Denies irregular heart rhythm, Denies lightheadedness and Denies dyspnea Resp Denies cough and Denies dyspnea GI Denies abdominal pain, Denies hematochezia, Denies change in bowel habits and D enies heartburn Reports as per HPI Musc Reports no additional complaints Neuro Denies syncope Psych Reports no additional complaints Endo Reports no additional complaints Khoi/Lymph Reports no additional complaints Physical exam (Primary Care) Vital Signs: Last Vital Signs Temp 97.7 F 11/07/24 09:14 Pulse 61 11/07/24 09:14 Resp 15 11/07/24 09:14 BP 120/80 11/07/24 09:14 Pulse Ox 96 11/07/24 09:14 Oxygen Delivery Method Room Air 11/07/24 09:14 BMI result Body Mass Index 27.0 Tobacco/Smoking Status: Tobacco use Status Tobacco use date assessed 11/07/24 11/07/24 09:16 Patient Tobacco Use Status Former Tobacco user 11/07/24 09:14 e-Cigarette/Vaping Use Never Used 11/07/24 09:14 PHQ-9: PHQ-9 Score PHQ-9: Total score 0 11/07/24 09:56 Depression Screening Interpretation: Negative Thrive Assessment: Date of Thrive Assessment Date Thrive assessed 03/22/24 11/07/24 09:14 Currently or been in a relationship where the following occur: No concerns reported Const General: comfortable and no acute distress Orientation/consciousness: patient oriented x3 HENUT General nose exam: Normal external nose present Mouth: moist mucous membranes Eyes Pupils: Equal, round and reactive pupils present EOM: EOMs intact bilaterally Direct Ophthalmoscopy: normal light reflex Neck Neck: Yes full ROM and Yes no lymphadenopathy Resp Effort & Inspection: able to speak in complete sentences Auscultation: clear to auscultation bilaterally, no rales and no wheezes Cardio Heart sounds: S1 normal heart sound present and S2 normal heart sound present GI Palpation (GI): Soft to palpation, nontender and no guarding Auscultation: normal bowel sounds General: Yes no CVA tenderness Back/Spine/Pelvis Back: no CVA tenderness Neuro General: patient oriented x3, gait normal and moves all extremities Cranial nerves: Yes Equal, round and reactive pupils present and Yes Bilaterally intact EOM present Motor exam (neuro): 5/5 motor strength present throughout Extrem General: Yes full ROM Results Reviewed Results Reviewed: ana: Sebastien Cody Age/Sex: 84/M : 1940 Unit#: [id number] Attend Dr: Umm Brewer MD Re11/05/24 Status: DEP REF Location: [facility] Disch: SPEC : [id number] BRUNA: 11/05/24 STATUS: COMP REQ : [id number] RECD: 11/05/[address]: Umm Brewer MD COMP: 11/05/24 ENTERED: 11/05/[address]: ORDERED: CBC Auto Diff Test Result Flag Reference WBC 5.7 4.8-10.8 X10*3/uL RBC 4.07 L 4.60-5.80 X10*6/uL HGB 13.2 L 14.0-18.0 g/dl HCT 39.0 L 42.0-52.0 % MCV 95.8 80.0-98.0 fL MCH 32.4 27.0-33.0 pg MCHC 33.8 31.0-36.0 g/dl RDW 12.3 11.0-16.0 % PLT 263 160-400 X10*3/uL MPV 10.6 9.4-12.4 fL Neut Pct Auto 47.4 45-73 % ImGran Pct Auto 0.2 0.0-0.4 % Lymp Pct Auto 35.4 20-40 % Daggett Pct Auto 11.3 H 2-11 % Eos Pct Auto 4.8 H 0-4 % Baso Pct Auto 0.9 0-2 % NRBC Pct Auto 0.0 0.0-0.2 /100WBC ANC Neut Abs # 2.7 2.0-8.3 x10*3/uL ImGran Abs Auto 0.01 0.00-0.03 X10*3/uL Lymph Abs Auto 2.0 1.2-4.9 X10*3/uL Daggett Abs Auto 0.6 0.1-1.2 X10*3/uL Eos Abs Auto 0.3 0.0-0.4 X10*3/uL Baso Abs Auto 0.1 0.0-0.2 X10*3/uL NRBC Abs Auto 0.000 0.0-0.012 X10*3/uL Name: Sebastien Cody Age/Sex: 84/M : 1940 Unit#: [id number] Attend Dr: Umm Brewer MD Re11/05/24 Status: [facility]P [facility] Disch: SPEC : [id number] BRUNA: 11/05/24 STATUS: COMP REQ : [id number] RECD: 11/05/24-[address]: Umm Brewer MD COMP: 11/05/24 ENTERED: 11/05/[address] [facility] [address]: ORDERED: Met Prof Fast, IRON PROF, AST, ALT, Lipid Panel Test Result Flag Reference Sodium 140 135-145 mmol/L Potassium 3.9 3.3-5.1 mmol/L CL 103 96-108 mmol/L CO2 29 22-29 mmol/L Gap 12 12-20 BUN 28 H 9-16 mg/dL Creat 1.54 H 0.5-1.4 mg/dL eGFR 43 Chronic Kidney Disease: Estimated GFR < 60 mL/min/1.73m2 Severe Kidney Disease: Estimated GFR < 15 mL/min/1.73 m2 FBS 90 60-99 mg/dL CA 9.6 8.4-10.2 mg/dL Iron 65 45-160 mcg/dL TIBC 252 228-428 mcg/dL Saturation 26 15-50 % UIBC 187 ug/dL AST (GOT) 43 H 5-37 U/L ALT (GPT) 31 0-40 U/L Triglyceride 132 <150 mg/dL Desirable Triglyceride: less than 150 mg/dL Borderline High Triglyceride 150-199 mg/dL High Triglyceride: 200-499 mg/dL Very High Triglyceride: greater than or equal to 5OO mg/dL Cholesterol 221 H <200 mg/dL Desirable Cholesterol: less than 200 mg/dL Borderline High Cholesterol: 200-239 mg/dL High Cholesterol: greater than 239 mg/dL LDL Calculated 146 H <100 mg/dL Desirable LDL: less than 100 mg/dL Near Optimal/Above Optimal LDL: 110-129 mg/dL Borderline High LDL: 130-159 mg/dL High LDL: 160-189 mg/dL Very High LDL: greater than or equal to 190 mg/dL HDL 49 >40 mg/dL Desirable HDL: greater than 40 mg/dL Note: This HDL assay may give artificially low results in patients with liver disease. Coding Level of Care Code Est Pt Level 4 (17755) Complex EM visit Add On G2211 Diagnoses Primary hypertension I10 Hypertension type: primary hypertension Dyslipidemia E78.5 Elevated PSA R97.20 Bladder cancer C67.9 Mild chronic anemia D64.9 Additional Codes PHQ-9 - 70032 - PHQ-9 Billing: Yes ([id number]) Assessment & Plan Assessment & Plan (1) Hypertension: Code(s): I10 - Essential (primary) hypertension Category: Medical Qualifiers: Hypertension type: primary hypertension Qualified Code(s): I10 - Essential (primary) hypertension (2) Dyslipidemia: Code(s): E78.5 - Hyperlipidemia, unspecified Category: Medical (3) Elevated PSA: Code(s): R97.20 - Elevated prostate specific antigen [PSA] Category: Medical (4) Bladder cancer: Code(s): C67.9 - Malignant neoplasm of bladder, unspecified Category: Medical (5) Mild chronic anemia: Code(s): D64.9 - Anemia, unspecified Category: Medical Plan Patient was informed and verbally consented to the use of an ambient scribe for clinic note documentation during this visit. 1. Bladder Cancer The patient has been diagnosed with bladder cancer, with a 6 x 3 cm lesion identified in the right wall of the bladder. A transurethral resection of the bladder tumor (TURBT) is planned to remove the lesion. A prostate biopsy is scheduled to be conducted simultaneously with the TURBT to ensure there is no involvement of the prostate. Renal cysts were noted on a CT urogram, but they are not currently concerning and do not require intervention. -The patient has anemia, attributed to decreased erythropoietin production due to age-related decline in kidney function. . Lower Back Pain Likely Due To Arthritis - reports persistent lower back pain, likely due to arthritis, and is advised to manage it with appropriate measures..
[2024-11-07 09:14] VITALS: BP 120/80; PULSE 61; RESP 15; TEMP 36.5; O2SAT 96; BMI 27.0
--- OUTSIDE RECORDS SUMMARY | 2024-11-07 10:14 | XMS_ITS | Clinical Summary ---
Author Organization [facility] Address [address] [place] [address] Phone Care Team Providers Care Head Teacher Name Role Phone Unavailable Primary Care Provider [...] EDT) SODIUM 138 133 - 146 mmol/L [facility] CHLORIDE 98 96 - 108 mmol/L [facility] POTASSIUM 4.0 3.3 - 5.1 mmol/L [facility] CO2 25 21 - 35 mmol/L [facility] BUN 17 6 - 19 mg/dL [facility] CREATININE 1.00 0.5 - 1.5 mg/dL [facility] GLUCOSE 103(H) 70 - 99 mg/dL [facility] CALCIUM 8.9 8.4 - 10.3 mg/dL [facility] EGFR 73 >59 mL/min/1.7 3m2 [facility] Comment:If patient is black, multiply result by 1.159. Estimated glomerular filtration rate calculated using the CKD-EPI equation. ANION GAP 19 10 - 20 mmol/L [facility] Blood 12/15/2017 1:39 PM EDT 12/15/2017 7:57 PM EDT us Debby Brunner NP LAB BLOOD ORDERABLES Final Resu lt [facility] [address] [place] [address] from Last 3 Months or Most Recently Relevant to Health Maintenance [place] [address] [place] [address] [address] [address] [place] [address] [address] [address] [place] [address] MEDICARE PPO BLUE REPLACEMENT MEDICARE PPO BLUE REPLACEMENT MEDICARE PPO BLUE REPLACEMENT MEDICARE PPO [place] [address] [place] [address] [address] [address] [place] [address] MEDICARE PPO BLUE REPLACEMENT [facility] MEDICARE PPO BLUE REPLACEMENT Additional Source Comments The information contained in this document represents components of the legal health record. It is not the complete legal health record.[facility]
--- OUTSIDE RECORDS SUMMARY | 2024-11-07 10:14 | XMS_ITS | Patient Health Record ---
Author Organization [facility] Address [address] [place] [address] Care Team Providers Care Specialist Field Engineer Name Role Phone Myesha MYLES, Debby Primary Care Provider Chandan Bradley Unavailable [phone] Cristin YAÑEZ, Joon Unavailable Unavailable Reason For [...] Problem Status W/U Status Risk Notes Problem [id number] Gastroesophageal reflux disease with esophagitis (K21.0) Active confirmed Problem [id number] Erosive esophagi tis (K22.10) Active confirmed Plan Of Treatment Future Test Test Name Order Date COLONOSCOPY 07/20/2014 UPPER GI ENDOSCOPY 01/20/2017 Insurance Providers Payer Name Payer Address Payer Phone Subscriber Number Group Number Insured Name Patient Relationship to Insured Coverage Start Date Coverage End Date [facility] [address] [place], [place] [id number] JR PAUL Self - patient is the [...]
== END 2024-11-07 11:45 | disposition home or self-care (01) ==
LOC: HO.HMCC 09:06
PROVIDERS: PCP Internal Medicine; Visit Provider Internal Medicine
DX: I10 Essential (primary) hypertension (principal); E78.5 Hyperlipidemia, unspecified; R97.20 Elevated prostate specific antigen [PSA]; C67.9 Malignant neoplasm of bladder, unspecified; D64.9 Anemia, unspecified

== ENCOUNTER → 2024-11-07 09:05 | Outpatient (BNVA) | payer MEDICARE, SELFPAY | PROVIDERS: PCP Internal Medicine; Visit Provider Internal Medicine | DX: I10 Essential (primary) hypertension (principal); E78.5 Hyperlipidemia, unspecified; R97.20 Elevated prostate specific antigen [PSA]; C67.9 Malignant neoplasm of bladder, unspecified; D64.9 Anemia, unspecified | CPT/HCPCS: 96127; 99212 ==

== ENCOUNTER 2024-11-23 10:50 | Outpatient (AMB) | payer MEDICARE, SELFPAY ==
--- NOTE | 2024-11-23 10:53 | A.OFFVIS_ITS ---
Intake Visit Reasons: Shortness of breath Intake Note: * pt is here for pre-op clearance for [place] [facility] [place]. this coming Thursday Gym Attendant Required: No Allergies naproxen Allergy (Unknown, Verified 11/23/24 11:07) GI bleed NSAIDS (Non-Steroidal Anti-Inflamma Allergy (Unknown, Verified 11/23/24 11:07) GI Bleed Medication List - Last Reconciled 11/23/24 by Idalia Mullen MD albuterol sulfate 90 mcg/actuation 2 puffs inhalation Q4-6H PRN 90 days famotidine 40 mg PO QAM fluticasone propion-salmeterol 250-50 mcg/dose (Wixela Inhub) 1 inh inhalation BID 90 days gabapentin 300 mg PO Q12H 3 months ipratropium bromide 2 sprays intranasal BID 3 months losartan 50 mg PO DAILY montelukast 10 mg PO DAILY Do you need a note to return to daycare/school/sports/work: No HPI HPI Shortness of breath: Details: JR Trivedi IS 84 YEARS, OLD, WHO HAS CHRONIC ALLERGIC RHINITIS AND MILD DEGREE OF BRONCHIAL ASTHMA. HE IS COMING AFTER 1 YEAR FOR FOLLOW-UP, AND NOW ESPECIALLY FOR PREOP CLEARANCE. BREATHING PARKS HAS BEEN VERY STABLE HE DOES USE WIXELA 250-51 INHALATION B.I.D., MAINLY TO CONTROL HIS COUGH VARIANT ASTHMA. HE CLAIMS THAT HE DOES FEEL LITTLE BIT MORE SHORT OF BREATH ON WALKING THAN BEFORE BUT THIS MAY BE ALL AGE RELATED, HIS NASAL CONGESTION AND POSTNASAL DISCHARGE WELL COUGH IS CONTROLLED WITH USE OF IPRATROPIUM BROMIDE NASAL SPRAY TWICE A DAY AND ALSO MONTELUKAST 10 MG DAILY. HE HAS HAD NO ACUTE EXACERBATION DURING THE PAST 1 YEAR. CURRENTLY HE IS BEING WORKED UP FOR POSSIBLE BLOOD CANCER AND POSSIBLE URINARY BLADDER CARCINOMA. [facility] Medical History Mild chronic anemia Intermittent lightheadedness Hematuria Anemia Dyspnea on exertion Action tremor Herpes zoster vaccination declined Flu vaccine refused Tremor of both hands COPD exacerbation Vitamin D deficiency Dyslipidemia Peripheral polyneuropathy Degenerative arthritis of cervical spine Chronic GERD Bronchial asthma Allergic rhinitis Surgical History No pertinent past surgical history Social History Housing: House Patient Tobacco Use Status: Former Tobacco user Years Smoked: 12 e-Cigarette/Vaping Use: Never Used Current occupational status: retired Sexual orientation: Straight/Heterosexual Gender identity: Male Cognitive needs: No Hearing needs: No Vision needs: Yes Review of Systems Const All systems reviewed & are unremarkable except as noted in HPI and below Eyes Reports no additional complaints ENT Reports nasal discharge (Off and on) Card Reports no additional complaints Resp Reports as per HPI GI Reports no additional complaints Reports no additional complaints Musc Reports no additional complaints Skin/Breast Reports system reviewed and no additional complaints, except as documented Neuro Reports no additional complaints Psych Reports no additional complaints Physical Exam Const General: healthy appearing, comfortable, no acute distress, alert and awake Orientation/consciousness: patient oriented x3 HEENT Head: Yes normal to inspection General nose exam: No nasal polyps present and No nasal discharge present Face and sinus: Yes sinuses nontender Mouth: oropharynx normal Throat: Yes posterior oropharynx normal Eyes General: appearance normal, both eyes and all related structures Neck Neck: Yes normal visual inspection, Yes no lymphadenopathy, Yes trachea midline and Yes no JVD Thyroid: Thyroid normal Chest Chest palpation & inspection: normal inspection of the chest and no tenderness Resp Other: Percussion note is resonant, breath sounds are slightly distant with prolonged expiratory phase. No audible wheezes or rhonchi. Effort & Inspection: normal respiratory effort Auscultation: no crackles, no rhonchi and no wheezes Percussion: percussion normal Cardio Palpation: normal PMI Rate: regular rate Rhythm: regular rhythm Heart sounds: no gallops and no murmurs Peripheral pulses: Peripheral pulses 2+ throughout GI Palpation (GI): Soft to palpation, nontender, No hepatosplenomegaly present and no masses Auscultation: normal bowel sounds Back/Spine/Pelvis Thoracic/Lumbar Spine: thoracic and lumbar spine normal to inspection Skin General skin exam: no rashes or lesions noted Neuro General: patient oriented x3 and no focal motor deficits Cranial nerves: Yes CN's II-XII intact bilaterally Extrem General: Yes normal to inspection, Yes no clubbing, cyanosis or edema and Yes no calf tenderness Psych Appearance: grossly normal and well kempt Speech and movement: Normal speech and movement present Results Reviewed Results Reviewed: SPIROMETRY IN THE OFFICE ON 11/16/2023, WAS NORMAL Assessment & Plan Assessment & Plan (1) Bronchial asthma: Comment: HIS BRONCHIAL ASTHMA IS, MORE COUGH VARIANT, AND IS WELL CONTROLLED . HIS SYMPTOMS GET LITTLE WORSE USUALLY AT THE CHANGE OF THE WEATHER. AT PRESENT HE HAS VERY LITTLE COUGH OR WHEEZING. Code(s): J45.909 - Unspecified asthma, uncomplicated Category: Medical Plan: CONTINUE USING WIXELA 250-51 INHALATION B.I.D.. AND ALBUTEROL HFA 2 PUFFS Q 6 HOURS P.R.N. (2) Allergic rhinitis: Comment: CHRONIC ALLERGIC/VASOMOTOR RHINITIS. IT IS STAYING WELL CONTROLLED WITH THE CURRENT REGIMEN : PATIENT NEEDS A NEW PRESCRIPTION Code(s): J30.9 - Allergic rhinitis, unspecified Category: Medical Qualifiers: Allergic rhinitis trigger: unspecified Allergic rhinitis seasonality: non-seasonal Qualified Code(s): J30.89 - Other allergic rhinitis Plan: CONTINUE MONTELUKAST 10 MG DAILY IPRATROPIUM BROMIDE NASAL SOLUTION 2 SPRAY EACH NOSTRIL B.I.D. Plan * PREOP CLEARANCE. FROM PULMONARY POINT OF VIEW THERE IS NO CONTRAINDICATION FOR UROLOGIC SURGERY, AND HE IS CLEARED. Coding Level of Care Code Est Pt Level 3 (30276) Diagnoses Bronchial asthma J45.909 Non-seasonal allergic rhinitis, unspecified trigger J30.89 Allergic rhinitis trigger: unspecified Allergic rhinitis seasonality: non-seasonal
--- OUTSIDE RECORDS SUMMARY | 2024-11-23 13:55 | XMS_ITS | Clinical Summary ---
Author Organization [facility] Address [address] [place] [address] Phone Care Team Providers Care Unix Consultant Name Role Phone Unavailable Primary Care Provider [...] EDT) SODIUM 138 133 - 146 mmol/L [facility] CHLORIDE 98 96 - 108 mmol/L [facility] POTASSIUM 4.0 3.3 - 5.1 mmol/L [facility] CO2 25 21 - 35 mmol/L [facility] BUN 17 6 - 19 mg/dL [facility] CREATININE 1.00 0.5 - 1.5 mg/dL [facility] GLUCOSE 103(H) 70 - 99 mg/dL [facility] CALCIUM 8.9 8.4 - 10.3 mg/dL [facility] EGFR 73 >59 mL/min/1.7 3m2 [facility] Comment:If patient is black, multiply result by 1.159. Estimated glomerular filtration rate calculated using the CKD-EPI equation. ANION GAP 19 10 - 20 mmol/L [facility] Blood 12/15/2017 1:39 PM EDT 12/15/2017 7:57 PM EDT us Debby Brunner NP LAB BLOOD ORDERABLES Final Resu lt [facility] [address] [place] [address] from Last 3 Months or Most Recently Relevant to Health Maintenance [place] [address] [place] [address] MEDICARE [address]PO [address] [place] [address] [place] [address] MEDICARE PPO [address] [place] [address] MEDICARE PPO BLUE REPLACEMENT MEDICARE PPO BLUE REPLACEMENT MEDICARE PPO BLUE REPLACEMENT MEDICARE PPO BLUE [place] [address] [place] [address] MEDIC[address] [place] [place] [address] MEDICARE PPO BLUE REPLACEMENT [facility] MEDICARE PPO BLUE REPLACEMENT Additional Source Comments The information contained in this document represents components of the legal health record. It is not the complete legal health record.[facility]
--- OUTSIDE RECORDS SUMMARY | 2024-11-23 13:55 | XMS_ITS | Patient Health Record ---
Author Organization [facility] Address [address] [place] [address] Care Team Providers Care Bookkeeping Machine Operator Name Role Phone Myesha MYLES, Debby Primary Care Provider Chandan Bradley Unavailable [phone] Cristin YAÑEZ, Joon Unavailable Unavailable Reason For [...] Problem Status W/U Status Risk Notes Problem [id number] Gastroesophageal reflux disease with esophagitis (K21.0) Active confirmed Problem 42326785 Erosive esophagi tis (K22.10) Active confirmed Plan Of Treatment Future Test Test Name Order Date COLONOSCOPY 07/20/2014 UPPER GI ENDOSCOPY 01/20/2017 Insurance Providers Payer Name Payer Address Payer Phone Subscriber Number Group Number Insured Name Patient Relationship to Insured Coverage Start Date Coverage End Date [facility] [address] [place], [place] [id number] [phone] [id number] JR PAUL Self - patient is the insured Medical (General) History Medical History History ICD Code Denies CT,DM,CVA,Lung disease,renal dise ase UGI Bleed in 10/2016--EGD [...]
== END 2024-11-23 11:07 | disposition home or self-care (01) ==
LOC: HO.HPS 10:51
PROVIDERS: PCP Internal Medicine; Visit Provider Internal Medicine
DX: J45.909 Unspecified asthma, uncomplicated (principal); J30.89 Other allergic rhinitis
CPT/HCPCS: 99213

== ENCOUNTER → 2024-11-23 10:50 | Outpatient (BNVA) | payer MEDICARE, SELFPAY | PROVIDERS: PCP Internal Medicine; Visit Provider Internal Medicine | DX: J30.89 Other allergic rhinitis (principal); J45.909 Unspecified asthma, uncomplicated | CPT/HCPCS: 99212 ==

== ENCOUNTER 2024-11-28 08:51 | Day surgery (SDC) | payer MEDICARE, SELFPAY ==
--- OUTSIDE RECORDS SUMMARY | 2024-11-04 12:46 | XMS_ITS | Patient Health Record ---
Author Organization [facility] Address [address] [place] [phone] Care Team Providers Care Golf Course Equipment Operator Name Role Phone Myesha MYLES, Debby Primary Care Provider Chandan Bradley Unavailable [phone] Cristin YAÑEZ, Joon Unavailable Unavailable Reason For [...] Problem Status W/U Status Risk Notes Problem [id number] Gastroesophageal reflux disease with esophagitis (K21.0) Active confirmed Problem [id number] Erosive esophagi tis (K22.10) Active confirmed Plan Of Treatment Future Test Test Name Order Date COLONOSCOPY 07/20/2014 UPPER GI ENDOSCOPY 01/20/2017 Insurance Providers Payer Name Payer Address Payer Phone Subscriber Number Group Number Insured Name Patient Relationship to Insured Coverage Start Date Coverage End Date [facility] [address] [place], [place] [id number] JR PAUL Self - patient is the insured Medical (General) History Medical History History ICD Code Denies [place],DM,CVA,Lung disease,renal dise ase UGI Bleed in 10/2016--EGD [...]
--- NOTE | 2024-11-24 09:43 | HO.ANESPROP2 ---
Documented by User: Geneva Booker NP 11/24/24 10:00 HPI - Anesthesia Eval Consult details Narrative: 84yo M for TUR Prostate, Prostate Needle Biopsy Pulmo optimized. [place] [facility] [place] cough variant asthma and allergic rhinitis. Both well controlled on current regimen PMFSH Active Problems Active Problems: All Active Problems Bladder cancer (Acute) Abnormal cytology (Acute) Urinary dribbling (Acute) Gross hematuria (Acute) Elevated PSA (Acute) Post-nasal drainage (Acute) Herpes zoster vaccination declined (Acute) Flu vaccine refused (Acute) COPD exacerbation (Acute) Hypertension (Acute) Mild chronic anemia (Acute) Intermittent lightheadedness (Acute) Hematuria (Acute) Anemia (Acute) Dyspnea on exertion (Acute) Action tremor (Acute) Dyslipidemia (Acute) Peripheral polyneuropathy (Acute) Degenerative arthritis of cervical spine (Acute) Chronic GERD (Acute) Bronchial asthma (Acute) Allergic rhinitis (Acute) Past Medical History Medical History COPD (chronic obstructive pulmonary disease) Bladder cancer Mild chronic anemia Intermittent lightheadedness Hematuria Anemia Dyspnea on exertion Action tremor Vitamin D deficiency Dyslipidemia Peripheral polyneuropathy Degenerative arthritis of cervical spine Chronic GERD Bronchial asthma Allergic rhinitis Surgical History Surgical History No pertinent past surgical history Social History Social History Housing: House Patient Tobacco Use Status: Former Tobacco user Years Smoked: 12 e-Cigarette/Vaping Use: Never Used Use of substances other than those prescribed or required for medical reasons: No Have you been hit, kicked, punched, or otherwise hurt by someone within the past year? If so, by whom?: No Spiritual Healthcare Practices: no [facility] Practices: no Cultural Healthcare Practices: no Are you DNR?: No Poor oral hygiene: No Current occupational status: retired Sexual orientation: Straight/Heterosexual Gender identity: Male Cognitive needs: No Hearing needs: No Vision needs: Yes Meds Allergies Allergy/AdvReac Type Severity Reaction Status Date / Time naproxen Allergy Intermediate GI bleed Verified 11/24/24 09:10 NSAIDS (Non-Steroidal Allergy Intermediate GI Bleed Verified 11/24/24 09:10 Anti-Inflamma Home Medications ?Medication ?Instructions ?Recorded ?Confirmed ?Last Taken ?Type losartan 50 mg tablet 50 mg PO QAM 11/24/24 11/24/24 Unknown History montelukast 10 mg tablet 10 mg PO QPM 11/24/24 11/24/24 Unknown History Exam Pertinent Lab Results Pertinent Lab Results: Laboratory Tests 11/05/24 06:58 WBC 5.7 Hgb 13.2 L Hct 39.0 L Plt Count 263 Sodium 140 Potassium 3.9 Chloride 103 Carbon Dioxide 29 BUN 28 H Creatinine 1.54 H Narrative Narrative: EKG 05/2024 NSR @ 61 Inferior infarct ECHO 03/2024 Conclusions: - The left ventricular systolic function is normal. The calculated ejection fraction is 63% by biplane method. - No obvious valvular pathology seen on this study. Assessment and Plan Assessment Anesthesia Assessment: Chart Reviewed Documented by User: Louie Cavazos MD 11/28/24 10:54 PMFSH Past Medical History Medical History COPD (chronic obstructive pulmonary disease) Bladder cancer Mild chronic anemia Intermittent lightheadedness Hematuria Anemia Dyspnea on exertion Action tremor Vitamin D deficiency Dyslipidemia Peripheral polyneuropathy Degenerative arthritis of cervical spine Chronic GERD Bronchial asthma Allergic rhinitis Family History Family history of problems with anesthesia: No Surgical History Surgical History No pertinent past surgical history History of Problems with Anesthesia: No Social History Social History Housing: House Patient Tobacco Use Status: Former Tobacco user Years Smoked: 12 e-Cigarette/Vaping Use: Never Used Use of substances other than those prescribed or required for medical reasons: No Have you been hit, kicked, punched, or otherwise hurt by someone within the past year? If so, by whom?: No Spiritual Healthcare Practices: no [facility] Practices: no Cultural Healthcare Practices: no Are you DNR?: No Poor oral hygiene: No Current occupational status: retired Sexual orientation: Straight/Heterosexual Gender identity: Male Cognitive needs: No Hearing needs: No Vision needs: Yes Meds Allergies Allergy/AdvReac Type Severity Reaction Status Date / Time naproxen Allergy Intermediate GI bleed Verified 11/24/24 09:10 NSAIDS (Non-Steroidal Allergy Intermediate GI Bleed Verified 11/24/24 09:10 Anti-Inflamma Home Medications ?Medication ?Instructions ?Recorded ?Confirmed ?Last Taken ?Type losartan 50 mg tablet 50 mg PO QAM 11/24/24 11/24/24 Unknown History montelukast 10 mg tablet 10 mg PO QPM 11/24/24 11/24/24 Unknown History Exam Exam Date and Time: 11/28/24 Airway Mallampati Class: III TM Dist: <=3cm Neck ROM: Limited Heart: rrr Lungs: cts Other: normal Assessment and Plan Assessment Anesthesia Assessment: Anesthesia Plan Discussed and Chart Reviewed Final Anesthetic Review Family History of Problems with Anesthesia: No History of Problems with Anesthesia: No NPO: Yes Final Preanesthetic Review: No Changes in Pt Med Stat, Meds/Allgs Chart Reviewed, Consent Obtained/Reviewed and Anes Risks/Benef Reviewed Patient Risk: Low Procedure Risk: Low Anesthetic Plan Anesthetic Plan: GA Disposition: Standard PACU
[2024-11-24 12:10] VITALS: BMI 27.0
[2024-11-28] VITALS (7 sets, daily range): BP systolic 90–154; BP diastolic 52–72; PULSE 46–64; RESP 16; TEMP 36.1–36.3; O2SAT 96–100; BMI 26.8
[2024-11-28] MEDS: Lactated Ringers 1,000 ML 100 ML IVCONT (09:20)
--- NOTE | 2024-11-28 10:47 | MHC.SHP ---
Pre-Procedural Eval Section A - 24 Hr Update-Section A only Date of Service: 11/28/24 The patient is an INPATIENT: No Changes since office visit: No Cold of Flu in the past 2 weeks, No New Medical Problems, No Changes in Medication and No Patient answered all questions The patient has been examined within 24 hours of the surgical procedure. The History & Physical has been completed within 30 days and I have reviewed it.: Yes Section B - Complete if H&P > 30 days Chief Complaint: Malignant neoplasm of bladder,elevated prostate Details of Present Illness: Prostate biopsy plus Transurethral resection of a bladder tumor with chemotherapy instillation Relevant Social History: Tobacco Use Present Medications: see Short Stay Collaborative assessment Medical History: No relevant PMH History of Previous Operations: No relevant previous surgery Allergies: Allergies Allergy/AdvReac Type Severity Reaction Status Date / Time naproxen Allergy Intermediate GI bleed Verified 11/24/24 09:10 NSAIDS (Non-Steroidal Allergy Intermediate GI Bleed Verified 11/24/24 09:10 Anti-Inflamma Review of Systems Sugical H&P ROS: Negative: Constitution, Cardiovascular, Respiratory, Neurological, Psychiatric, Hem-Onc, Allergic/Immunologic, Gastrointestinal, Genitourinary, Musculoskeletal, Integumentary, Endocrine and Eyes/Ears/Nose/Throat Exam Surgical H&P Exam: Normal: HEENT, Normal: Heart, Normal: Lungs, Normal: Extremities, Normal: Abdomen, Normal: Skin and Normal: Neurological Plan Diagnosis/Plan: Unchanged I have reviewed the history and physical and performed a pertinent physical examination on my patient. No changes have occurred unless specified. Time Spent With Patient Time: Total time managing care of this patient today ____ minutes.
--- NOTE | 2024-11-28 14:34 | W.PM.OPN ---
Operative Note Operative Note Date of Service: 11/28/24 Narrative: PreOperative Diagnosis: bladder cancer, elevated PSA Post Operative Diagnosis: bladder cancer - multifocal extensive, primary Tumor size 8 cm, location right upper bladder sidewall, elevated PSA Procedure: 1. transrectal ultrasound measurement of prostate 2. transrectal ultrasound-guided prostate biopsy 12 core 3. Transurethral resection of bladder tumor modifier 22 extensive and multiple Surgeon: Dr Varun Doshi Anesthesia: general Indications for procedure: initial presentation with hematuria to the emergency room. CT scan showed 6 x 8 cm mass right lateral sidewall. Also noted to have PSA 10.6. Plan for prostate biopsy and bipolar Transurethral resection of the bladder tumor. Due to the size of the initial bladder tumor decision made to defer bladder instillation of chemotherapeutic agent till postprocedure. Procedure: After informed consent was verified the patient was brought to the operating room and placed in a supine position. Anesthesia was administered per protocol. The patient was placed in a modified dorsal lithotomy position and prepped and draped in a sterile fashion. Safety pause time-out was performed. Antibiotics were confirmed. Iodine 10cc with 60 cc gel was placed per rectum to reduce infection risk using a catheter tip syringe. 8 Hz Hannah rectal end-fire ultrasound probe was placed transrectally without difficulty. The prostate was visualized. Seminal vesicles were normal. Prostate margins were clearly demarcated. Bladder was seen superiorly. No cystic structures were noted No calcifications were noted at the surgical margin The prostate was otherwise heterogenous in nature - clear demarcation between transitional zone and peripheral zone. No evidence of nodularity consistent with prostate cancer. The prostate was measured in 3 dimensions Prostatic Width: 4.5 cm Prostatic Height: 3.5 cm Urethral Length: 5.6 cm Total volume equals : 46 ml A 12 core biopsy was performed with 6 cores each side using an 18 gauge prostate biopsy gun. Two cores each were taken at the prostate apex, mid and base on each side. Cores were spaced between lateral and medial aspects. Each core was examined as placed on specimen foam as part of quality management coordinator to ensure a minimum 1 cm of length and minimal discontinuity. Patient was re-prepped. A 26 Faroese continuous flow resectoscope was inserted per urethra. The visual obturator was used in order to minimize potential for urethral damage. Upon entrance of the bladder the entire upper right quadrant running from bladder neck through the posterior bladder wall was covered with intermittent superficial bladder tumor. This was very extensive and there were numerous satellite lesions. Using the Olympus bipolar resectoscope we started at the posterior upper right corner and slowly worked our way down following the contours of the bladder removing bladder tumor. This took proximally 200% longer than typical due to the large size of the tumor about 60 minutes. The tumor itself primarily covered a 8 cm by 5 cm area on the upper right sidewall. Throughout the resection we occasionally paused in order to remove bladder tumor debris that had been resected. We also re-examined the bladder. The satellite lesions were extensive up to the dome of the bladder. Likely the ureteric orifice on the right side was clear from tumor and visibility was maintained throughout the procedure. Narrow band imaging was used at the completion of the procedure in order to examine the bladder in its entirety. Once there appeared to be no definitive separate lesions there were certainly mucosal changes that may be associated with pre no malignant lesions. At the completion of the procedure the bladder was irrigated. The cystoscope was removed. A [address] Salmon catheter was placed in the bladder. 10 cc was placed in the balloon. This will remain for 3-4 days to allow bladder healing. The patient tolerated the procedure well. They were extubated in the operating room and transferred in stable condition to the recovery area. Pathology: Bladder tumor Drains: Salmon catheter as above
== END 2024-11-28 14:13 | disposition home or self-care (01) ==
PROVIDERS: PCP Internal Medicine; Visit Provider Urology
PROC: 0VT08ZZ Resection of Prostate, Via Natural or Artificial Opening Endoscopic (ICD-10-PCS; CPT 52601; principal; 2024-11-28 10:40)
PROC: (CPT 55700; 2024-11-28 10:40)
DX: C67.2 Malignant neoplasm of lateral wall of bladder (principal); C61 Malignant neoplasm of prostate; R97.20 Elevated prostate specific antigen [PSA]
CPT/HCPCS: 52240; 55700; 76942; 88305; 88342; 88344; J1956; J2003; J2704; J3010

== ENCOUNTER → 2024-11-28 08:51 | Outpatient (BNV) | payer MEDICARE, SELFPAY | PROVIDERS: PCP Internal Medicine; Visit Provider Urology | DX: C67.9 Malignant neoplasm of bladder, unspecified (principal); R97.20 Elevated prostate specific antigen [PSA] | CPT/HCPCS: 52240; 76872; 76942 ==

== ENCOUNTER 2024-12-08 12:42 | Outpatient (AMB) | payer MEDICARE, SELFPAY ==
--- NOTE | 2024-12-08 12:43 | MHC.OFFVIS ---
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 He is a patient of Dr. Brewer. 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 service did include a period of time on [place] CT urogram performed - bilateral renal cysts, 6 x 3 cm bladder lesion right sidewall Intervention - 11/24 TURBT - large volume high-grade superficial bladder cancer Prostate cancer Progressive - 09/17 5.4, 10/24 10.6 Biopsy shows 4 cores out of 12 - [place] 3 + 3 Grade group 1 Low volume disease COUNT INCLUDES THE [facility] Medical History (Updated 12/08/24 @ 13:21 by Varun Doshi MD) Elevated PSA Gross hematuria COPD (chronic obstructive pulmonary disease) Bladder cancer Mild chronic anemia Intermittent lightheadedness Hematuria Anemia Dyspnea on exertion Action tremor Vitamin D deficiency Dyslipidemia Peripheral polyneuropathy Degenerative arthritis of cervical spine Chronic GERD Bronchial asthma Allergic rhinitis Surgical History No pertinent past surgical history Social History Housing: House Are you a primary nurse healthcare manager to a significant other at home: No Do you presently have visiting nurse or other home services: No Patient Tobacco Use Status: Former Tobacco user Tobacco use type: Cigarette Years Smoked: 12 e-Cigarette/Vaping Use: Never Used Current occupational status: retired Sexual orientation: Straight/Heterosexual Gender identity: Male Cognitive needs: No Hearing needs: No Vision needs: Yes Review of Systems Const Denies chills and Denies fever(s) Card Reports no additional complaints and Denies syncope Resp Denies cough GI Denies abdominal pain and Denies heartburn Reports as per HPI and Denies change in libido Neuro Denies syncope Psych Denies change in libido Endo Denies change in libido Physical Exam Const General: cooperative, healthy appearing, comfortable and no acute distress Orientation/consciousness: patient oriented x3 HEENT Face and sinus: Yes normal facial exam Mouth: moist mucous membranes Neck Neck: Yes normal visual inspection, Yes full ROM and Yes trachea midline Chest Chest palpation & inspection: normal inspection of the chest Resp Effort & Inspection: normal respiratory effort, able to speak in complete sentences and no respiratory distress GI Inspection: Yes normal to inspection Back/Spine/Pelvis Cervical Spine: normal cervical lordosis Thoracic/Lumbar Spine: thoracic and lumbar spine normal to inspection Skin General skin exam: no rashes or lesions noted Neuro General: patient oriented x3, gait normal, tone normal and moves all extremities Extrem General: Yes normal to inspection and Yes capillary refill normal Assessment & Plan Assessment & Plan (1) Bladder cancer: Comment: High-grade superficial Code(s): C67.9 - Malignant neoplasm of bladder, unspecified Category: Medical (2) Hormone sensitive prostate cancer: Code(s): C61 - Malignant neoplasm of prostate; Z19.1 - Hormone sensitive malignancy status Category: Medical Plan Risks, benefits and alternatives to therapy were discussed. These include but are not limited to infection, bleeding, damage to local organs and tissues, need for further interventions. Anesthetic risks regarding cardiac arrhythmia, blood clots, and potential mortality were discussed. The patient understands the typical recovery time and the outpatient nature of the procedure. After consideration of these risks the patient gives full informed consent and they wish to move ahead with the procedure. - TURBT with mitomycin-C and cytarabine Patient Instructions: This note is constructed using voice recognition software. While every effort has been made to ensure accuracy vice president of nursing errors may have been included. Imaging studies, laboratory and physical exam results were discussed and reviewed in detail. No major barriers to patient understanding were identified. An opportunity to ask questions regarding the treatment plan was provided. All questions were answered. The patient expressed understanding and agreement with the above treatment plan. The patient is aware they should contact our office by phone for worsening of their current condition or the appearance of new urologic symptoms. Compliance is encouraged with any medications and followup testing that is ordered. It is a privilege to participate in the urologic care of your patient. If you have any questions or concerns regarding treatment for the above conditions, or other urologic issues, please do not hesitate to contact me. The office telephone contact is [phone]. Sincerely, Dr Varun Doshi MD, [facility] - Urology Compassionate Specialist Care for the Genitourinary System Coding Level of Care Code Est Pt Level 4 (62700) Diagnoses Bladder cancer C67.9 Hormone sensitive prostate cancer C61; Z19.1
== END 2024-12-08 13:28 | disposition home or self-care (01) ==
LOC: HO.HUSH 12:42
PROVIDERS: PCP Internal Medicine; Visit Provider Urology
DX: C67.9 Malignant neoplasm of bladder, unspecified (principal); C61 Malignant neoplasm of prostate; Z19.1 Hormone sensitive malignancy status; N39.43 Post-void dribbling; R31.0 Gross hematuria
CPT/HCPCS: 99214

== ENCOUNTER → 2024-12-08 12:42 | Outpatient (BNVA) | payer MEDICARE, SELFPAY | PROVIDERS: PCP Internal Medicine; Visit Provider Urology | DX: C61 Malignant neoplasm of prostate (principal); C67.9 Malignant neoplasm of bladder, unspecified; Z19.1 Hormone sensitive malignancy status | CPT/HCPCS: 81003; 99212 ==

== ENCOUNTER 2025-01-30 09:43 | Day surgery (SDC) | payer MEDICARE, SELFPAY ==
--- OUTSIDE RECORDS SUMMARY | 2025-01-11 16:01 | XMS_ITS | Clinical Summary ---
Author Organization [facility] Address [address] [place] [id number] Phone Care Team Providers Care Audiovisual Equipment Operator Name Role Phone Unavailable Primary Care [...] on patient's age to complete this topic IPV VACCINES Aged Out No longer eligi ble [...] Date/Time Associated Diagnosis Comments BASIC METABOLIC PANEL (BMP) Routine 12/15/2017 1:39 PM EDT Essential hypertension from Last 3 Months or Most Recently Relevant to Health Maintenance Results * (ABNORMAL) Basic metabolic panel (12/15/2017 1:39 PM EDT) SODIUM 138 133 - 146 mmol/L [facility] CHLORIDE 98 96 - 108 mmol/L [facility] POTASSIUM 4.0 3.3 - 5.1 mmol/L [facility] CO2 25 21 - 35 mmol/L [facility] BUN 17 6 - 19 mg/dL [facility] CREATININE 1.00 0.5 - 1.5 mg/dL [facility] GLUCOSE 103(H) 70 - 99 mg/dL [facility] CALCIUM 8.9 8.4 - 10.3 mg/dL [facility] EGFR 73 >59 mL/min/1.7 3m2 [facility] Comment:If patient is black, multiply result by 1.159. Estimated glomerular filtration rate calculated using the CKD-EPI equation. ANION GAP 19 10 - 20 mmol/L [facility] Blood 12/15/2017 1:39 PM EDT 12/15/2017 7:57 PM EDT us Debby Brunner NP LAB BLOOD BKR ORDERABLES Final Result [facility] [address] [place] [address] from Last 3 Months or Most Recently Relevant to Health Maintenance [place] [address] [place] [address] MED[address]ARE [address] [place] [address] [place] [address] [address] [place] [address] [place] [address] [address] [place] [place] [address] [address] [place] [address] [place] [address] [address] [place] [address] [place] [address] MEDICARE PPO BLUE REPLACEMENT MEDICARE PPO BLUE REPLACEMENT MEDICARE PPO BLUE REPLACEMENT MEDICARE PPO BLUE REPLACEMENT Additional Source Comments The information contained in this document represents components of the legal health record. It is not the complete legal health record.[facility]
--- OUTSIDE RECORDS SUMMARY | 2025-01-11 16:01 | XMS_ITS | Patient Health Record ---
Author Organization [facility] Address [address] [place] [id number] Care Team Providers Care Retort Firer Name Role Phone Myesha MYLES, Debby Primary Care Provider Chandan Bradley Unavailable [phone] Cristin YAÑEZ, Joon Unavailable Unavailable Reason For Referral No Information Medications Medication SIG (Take, Route, Fr equency, Duration) Notes Start Date End Date Status Omeprazole 20 MG 1 capsule Orally BID ; Duration: 90 days Active Probiotic Active traMADol HCl 50 MG 1 tablet as needed O rally every 6 hrs Active Multi Vitamin/Minerals Orally Active Glucosamine 500 MG 1 capsule with a corwin l Orally Once a day Active Problems Problem Type SNOMED Code ICD Code Onset Dates Problem Status W/U Status Risk Notes Problem Gastroesophageal reflux disease with esophagitis (012149613) Gastroesophageal reflux disease with esophagitis (K21.0) Active confirmed Problem Erosive esophagitis (52416971) Erosive esophagitis (K22.10) Active confirmed Plan Of Treatment Future Test Test Name Order Date COLONOSCOPY 07/20/2014 UPPER GI ENDOSCOPY 01/20/2017 Insurance Providers Payer Name Payer Address Payer Phone Subscriber Number Group Number Insured Name Patient Relationship to Insured Coverage Start Date Coverage End Date [facility] [address] [place], [place] [id number] JR PAUL Self - patient is the insured Medical (General) History Medical History History ICD Code Denies ME,DM,CVA,Lung disease,renal dise ase UGI Bleed in 10/2016--EGD [...]
[2025-01-24 09:44] VITALS: BMI 27.0
--- NOTE | 2025-01-24 13:14 | HO.ANESPROP2 ---
Documented by User: Geneva Booker NP 01/24/25 13:17 HPI - Anesthesia Eval Consult details Narrative: 84yo M for TUR Bladder Tumor with Mitomycin and Cytarabine s/p TUR Prostate, Prostate Needle Biopsy 10/2024 with GA-LMA 3 Pulmo optimized prior to TURP. Follows [facility] pulmo for cough variant asthma and allergic rhinitis. Both well controlled on current regimen PMFSH Active Problems Active Problems: All Active Problems (Updated 12/08/24 @ 13:21 by Varun Doshi MD) Hormone sensitive prostate cancer (Acute) Bladder cancer (Acute) Abnormal cytology (Acute) Urinary dribbling (Acute) Post-nasal drainage (Acute) Herpes zoster vaccination declined (Acute) Flu vaccine refused (Acute) COPD exacerbation (Acute) Hypertension (Acute) Mild chronic anemia (Acute) Intermittent lightheadedness (Acute) Hematuria (Acute) Anemia (Acute) Dyspnea on exertion (Acute) Action tremor (Acute) Dyslipidemia (Acute) Peripheral polyneuropathy (Acute) Degenerative arthritis of cervical spine (Acute) Chronic GERD (Acute) Bronchial asthma (Acute) Allergic rhinitis (Acute) Past Medical History Medical History Elevated PSA Gross hematuria COPD (chronic obstructive pulmonary disease) Bladder cancer Mild chronic anemia Intermittent lightheadedness Hematuria Anemia Dyspnea on exertion Action tremor Vitamin D deficiency Dyslipidemia Peripheral polyneuropathy Degenerative arthritis of cervical spine Chronic GERD Bronchial asthma Allergic rhinitis Family History Family history of problems with anesthesia: No Surgical History Surgical History History of prostate surgery History of Problems with Anesthesia: No Social History Social History Housing: House Are you a primary nursing care attendant to a significant other at home: No Do you presently have visiting nurse or other home services: No Patient Tobacco Use Status: Former Tobacco user Tobacco use type: Cigarette Years Smoked: 12 e-Cigarette/Vaping Use: Never Used Second Hand Smoke Exposure: No Use of substances other than those prescribed or required for medical reasons: No Have you been hit, kicked, punched, or otherwise hurt by someone within the past year? If so, by whom?: No Are you DNR?: No Advance Directives: No Advance Directives Information Provided: Yes Advance Directives on File: No Current occupational status: retired Sexual orientation: Straight/Heterosexual Gender identity: Male Cognitive needs: No Hearing needs: No Vision needs: Yes Meds Allergies Allergy/AdvReac Type Severity Reaction Status Date / Time naproxen Allergy Intermediate GI bleed Verified 12/08/24 12:44 NSAIDS (Non-Steroidal Allergy Intermediate GI Bleed Verified 12/08/24 12:44 Anti-Inflamma Home Medications ?Medication ?Instructions ?Recorded ?Confirmed ?Last Taken ?Type losartan 50 mg tablet 50 mg PO QAM 11/24/24 01/30/25 01/29/25 History montelukast 10 mg tablet 10 mg PO QPM 11/24/24 01/30/25 01/29/25 History Exam Height,Weight and Vital Signs: Height 5 ft 9 in Weight 83.007 kg Pertinent Lab Results Pertinent Lab Results: Laboratory Tests 11/05/24 06:58 WBC 5.7 Hgb 13.2 L Hct 39.0 L Plt Count 263 Sodium 140 Potassium 3.9 Chloride 103 Carbon Dioxide 29 BUN 28 H Creatinine 1.54 H Narrative Narrative: EKG 05/2024 NSR @ 61 Inferior infarct ECHO 03/2024 Conclusions: - The left ventricular systolic function is normal. The calculated ejection fraction is 63% by biplane method. - No obvious valvular pathology seen on this study. Assessment and Plan Assessment Anesthesia Assessment: Chart Reviewed Final Anesthetic Review Family History of Problems with Anesthesia: No History of Problems with Anesthesia: No Documented by User: Ashley Simeon MD 01/30/25 13:08 [facility] Past Medical History Medical History Elevated PSA Gross hematuria COPD (chronic obstructive pulmonary disease) Bladder cancer Mild chronic anemia Intermittent lightheadedness Hematuria Anemia Dyspnea on exertion Action tremor Vitamin D deficiency Dyslipidemia Peripheral polyneuropathy Degenerative arthritis of cervical spine Chronic GERD Bronchial asthma Allergic rhinitis Surgical History Surgical History History of prostate surgery Social History Social History Housing: House Are you a primary nursing care attendant to a significant other at home: No Do you presently have visiting nurse or other home services: No Patient Tobacco Use Status: Former Tobacco user Tobacco use type: Cigarette Years Smoked: 12 e-Cigarette/Vaping Use: Never Used Second Hand Smoke Exposure: No Use of substances other than those prescribed or required for medical reasons: No Have you been hit, kicked, punched, or otherwise hurt by someone within the past year? If so, by whom?: No Are you DNR?: No Advance Directives: No Advance Directives Information Provided: Yes Advance Directives on File: No Current occupational status: retired Sexual orientation: Straight/Heterosexual Gender identity: Male Cognitive needs: No Hearing needs: No Vision needs: Yes Meds Allergies Allergy/AdvReac Type Severity Reaction Status Date / Time naproxen Allergy Intermediate GI bleed Verified 12/08/24 12:44 NSAIDS (Non-Steroidal Allergy Intermediate GI Bleed Verified 12/08/24 12:44 Anti-Inflamma Home Medications ?Medication ?Instructions ?Recorded ?Confirmed ?Last Taken ?Type losartan 50 mg tablet 50 mg PO QAM 11/24/24 01/30/25 01/29/25 History montelukast 10 mg tablet 10 mg PO QPM 11/24/24 01/30/25 01/29/25 History Exam Airway Mallampati Class: III TM Dist: >3cm Neck ROM: Full Loose/Missing/Broken Teeth: No Heart: RRR Lungs: CTA Assessment and Plan Assessment Anesthesia Assessment: Anesthesia Plan Discussed Final Anesthetic Review NPO: Yes ASA Class: III Final Preanesthetic Review: Meds/Allgs Chart Reviewed, Consent Obtained/Reviewed and Anes Risks/Benef Reviewed Patient Risk: Intermediate Procedure Risk: Low Anesthetic Plan Anesthetic Plan: GA Disposition: Standard PACU
[2025-01-30] VITALS (9 sets, daily range): BP systolic 109–141; BP diastolic 61–76; PULSE 53–62; RESP 10–20; TEMP 36.3–36.6; O2SAT 95–100
[2025-01-30] MEDS: Lactated Ringers 1,000 ML 100 ML IVCONT (10:10)
--- NOTE | 2025-01-30 12:33 | MHC.SHP ---
Pre-Procedural Eval Section A - 24 Hr Update-Section A only Date of Service: 01/30/25 The patient is an INPATIENT: No Changes since office visit: No Cold of Flu in the past 2 weeks, No New Medical Problems, No Changes in Medication and No Patient answered all questions The patient has been examined within 24 hours of the surgical procedure. The History & Physical has been completed within 30 days and I have reviewed it.: Yes Section B - Complete if H&P > 30 days Chief Complaint: Malignant neoplasm of bladder, unspecified Details of Present Illness: TURBT with bladder immunotherapy instillation Relevant Family History (Specify if Yes): No Relevant Social History: None Present Medications: see Short Stay Collaborative assessment Medical History: No relevant PMH History of Previous Operations: Relevant previous surgery/procedure and date(s) Allergies: Allergies Allergy/AdvReac Type Severity Reaction Status Date / Time naproxen Allergy Intermediate GI bleed Verified 12/08/24 12:44 NSAIDS (Non-Steroidal Allergy Intermediate GI Bleed Verified 12/08/24 12:44 Anti-Inflamma Review of Systems Sugical H&P ROS: Negative: Constitution, Cardiovascular, Respiratory, Neurological, Psychiatric, Hem-Onc, Allergic/Immunologic, Gastrointestinal, Genitourinary, Musculoskeletal, Integumentary, Endocrine and Eyes/Ears/Nose/Throat Exam Surgical H&P Exam: Normal: HEENT, Normal: Heart, Normal: Lungs, Normal: Extremities, Normal: Abdomen, Normal: Skin and Normal: Neurological Plan Diagnosis/Plan: Unchanged I have reviewed the history and physical and performed a pertinent physical examination on my patient. No changes have occurred unless specified. Time Spent With Patient Time: Total time managing care of this patient today ____ minutes.
--- NOTE | 2025-01-30 13:28 | W.PM.OPN ---
Operative Note Operative Note Date of Service: 01/30/25 Narrative: PreOperative Diagnosis: bladder cancer Post Operative Diagnosis: bladder cancer - extensive throughout right bladder sidewall, posterior wall and dome of bladder Procedure: TURBT with extensive fulguration and mitomycin-C cytarabine installation Surgeon: Dr Varun Doshi Anesthesia: general Indications for procedure: Underwent initial resection Hina Significant burden of high-grade T1 disease Here for repeat resection and immunotherapy Procedure: After informed consent was verified the patient was brought to the operating room and placed in a supine position. Anesthesia was administered per protocol. The patient was placed in a modified dorsal lithotomy position and prepped and draped in a sterile fashion. Safety pause time-out was performed. Antibiotics were confirmed. A 26 Trin[place] continuous flow resectoscope was inserted per urethra. The visual obturator was used in order to minimize potential for urethral damage. The bladder was examined. There was remnant tumor surrounding small cellules on the right bladder sidewall. There was extensive mucosa change on the right sidewall running around to the posterior wall and numerous small areas were identified on narrow band imaging as potential satellite mucosal lesions. Resection was 1st performed on the remnant tumor with small cellules on the right bladder sidewall. These were proximally 4 cm in volume. 1 cm lesions were seen on the posterior sidewall and on the dome and these were individually resected. At this point the specimens were removed. Extensive fulguration was then performed over an 8-10 cm area on the right sidewall. Narrow band imaging was used to identify at-risk mucosa. Multiple greater than 20 small sub cm flat mucosal lesions were seen on narrow band imaging and were all fulgurated using the resectoscope. These were located primarily in the upper half of the bladder throughout the dome and right and left bladder sidewalls. At the completion of the procedure the bladder was irrigated. The cystoscope was removed. A [address] Salmon catheter was inserted into the bladder. 10 cc was placed in the balloon. Mitomycin-C with cytarabine was instilled into the bladder. The flow from the catheter was left clamped. The inflow to the catheter was attached to a 3 L normal saline bag. The patient tolerated the procedure well. They were extubated in the operating room and transferred in stable condition to the recovery area. Immunotherapy will remain in the bladder for 1 hour. At the completion of 1 hour the clamp will be removed. The mitomycin-C and cytarabine will be allowed to egress to the urine collection bag. The 3 L bag of normal saline will be run at maximum rate through the bladder in order to dilute any residual medications. The Salmon catheter will then be removed. Pathology: Pathology from bladder tumor Drains: As above
== END 2025-01-30 15:25 | disposition home or self-care (01) ==
PROVIDERS: PCP Internal Medicine; Visit Provider Urology
PROC: 0TBB8ZZ Excision of Bladder, Via Natural or Artificial Opening Endoscopic (ICD-10-PCS; CPT 52235; principal; 2025-01-30 11:40)
DX: C67.8 Malignant neoplasm of overlapping sites of bladder (principal); C61 Malignant neoplasm of prostate; Z19.1 Hormone sensitive malignancy status; R97.20 Elevated prostate specific antigen [PSA]; R31.0 Gross hematuria; N28.1 Cyst of kidney, acquired; D64.9 Anemia, unspecified; J44.9 Chronic obstructive pulmonary disease, unspecified; R25.1 Tremor, unspecified; G62.9 Polyneuropathy, unspecified; E55.9 Vitamin D deficiency, unspecified; E78.5 Hyperlipidemia, unspecified; Z79.899 Other long term (current) drug therapy; Z88.6 Allergy status to analgesic agent; Z98.890 Other specified postprocedural states; Z87.891 Personal history of nicotine dependence
CPT/HCPCS: 52235; 51720; 88307; J0131; J1100; J1956; J2003; J2405; J2704; J3010; J9100; J9280

== ENCOUNTER → 2025-01-30 09:43 | Outpatient (BNV) | payer MEDICARE, SELFPAY | PROVIDERS: PCP Internal Medicine; Visit Provider Urology | DX: C67.9 Malignant neoplasm of bladder, unspecified (principal) | CPT/HCPCS: 52234 ==

== ENCOUNTER 2025-02-07 06:54 | Outpatient (REF) | payer MEDICARE, SELFPAY ==
--- OUTSIDE RECORDS SUMMARY | 2025-02-07 06:58 | XMS_ITS | Patient Health Record ---
Author Organization [facility] Address [address] [place] [id number] Care Team Providers Care Slot Operations Manager Name Role Phone Debby Brunner NP Primary Care Provider Chandan Bradley Unavailable [phone] Cristin YAÑEZ, Joon Unavailable Unavailable Reason For Referral No Information Medications Medication SIG (Take, Route, Frequency, Duration) Notes Start Date End Date Status Omeprazole 20 MG Capsule Delayed Release 1 capsule Orally BID; Duration: 90 days Active Probiotic Active traMADol HCl 50 MG Tablet 1 tablet as ne eded Orally every 6 hrs Active Multi Vitamin/Minerals Tablet Orally Active Glucosamine 500 MG Capsule 1 capsule wit h a meal Orally Once a day Active Social History Social History Additional Details Category Social Info Options Details Miscellaneous: Marital status: Occupation: Retired Section Notes: Nonsmoker;no sig alcohol Nonsmoker;no sig alcohol Problems Problem Type SNOMED Code ICD Code Onset Dates Problem Status W/U Status Risk Notes Problem Gastroesophageal reflux disease with esophagitis (586746806) Gastroesophageal reflux disease with esophagitis (K21.0) Active confirmed Problem Erosive esophagitis (09683807) Erosive esophagitis (K22.10) Active confirmed Plan Of Treatment Future Test Test Name Order Date COLONOSCOPY 07/20/2014 UPPER GI ENDOSCOPY 01/20/2017 Insurance Providers Payer Name Payer Address Payer Phone Subscriber Number Group Number Insured Name Patient Relationship to Insured Coverage Start Date Coverage End Date [facility] [address] [place], [place] [id number] JR PAUL Self - patient is the insured Medical (General) History Medical History History ICD Code Denies DC,DM,CVA,Lung disease,renal dise ase UGI Bleed in 10/2016--EGD [...]
--- OUTSIDE RECORDS SUMMARY | 2025-02-07 06:58 | XMS_ITS | Clinical Summary ---
Author Organization [facility]erg[facility] With [facility] Address [address] [place] [phone] Phone Care Team Providers Care Wastewater Treatment Engineer Name Role Phone Unavailable Primary Care Provider [...] EDT) SODIUM 138 133 - 146 mmol/L [facility] CHLORIDE 98 96 - 108 mmol/L [facility] POTASSIUM 4.0 3.3 - 5.1 mmol/L [facility] CO2 25 21 - 35 mmol/L [facility] BUN 17 6 - 19 mg/dL [facility] CREATININE 1.00 0.5 - 1.5 mg/dL [facility] GLUCOSE 103(H) 70 - 99 mg/dL [facility] CALCIUM 8.9 8.4 - 10.3 mg/dL [facility] EGFR 73 >59 mL/min/1.7 3m2 [facility] Comment:If patient is black, multiply result by 1.159. Estimated glomerular filtration rate calculated using the CKD-EPI equation. ANION GAP 19 10 - 20 mmol/L [facility] Blood 12/15/2017 1:39 PM EDT 12/15/2017 7:57 PM EDT us Debby Brunner NP LAB BLOOD BKR ORDERABLES Final Result [address] [id number] from Last 3 Months or Most Recently Relevant to Health Maintenance [place] [address] [place] [address] MEDICARE PPO BLUE [place]PLACEMENT [place] [place] [address] MEDICARE PPO BLUE REPLACEMENT MEDICARE PPO BLUE REPLACEMENT MEDICARE PPO BLUE REPLACEMENT MEDICARE PPO BLUE [place]AC[place] [place] [address] MEDICARE PPO BLUE [place] [place] [address] MEDICARE PPO BLUE [place] [place] [address] MEDICARE PPO BLUE REPLACEMENT Additional Source Comments The information contained in this document represents components of the legal health record. It is not the complete legal health record.[facility]
[2025-02-07 10:46] LABS: MANUAL DIFF FLAG NO
[2025-02-07 10:57] LABS: Hematocrit 39.9 % (42.0-52.0); Hemoglobin 13.3 g/dl (14.0-18.0); Imm Gran Abs Auto 0.03 X10*3/uL (0.00-0.03); Imm Gran Pct Auto 0.5 % (0.0-0.4); Lymphocytes Absolute Auto 2.1 X10*3/uL (1.2-4.9); Mean Corpuscular HGB Conc 33.3 g/dl (31.0-36.0); Mean Corpuscular Hemoglobin 32.1 pg (27.0-33.0); Mean Corpuscular Volume 96.4 fL (80.0-98.0); NRBC Abs Auto 0.000 X10*3/uL (0.0-0.012); NRBC Pct Auto 0.0 /100WBC (0.0-0.2); Platelet Count 322 X10*3/uL (160-400); Red Blood Count 4.14 X10*6/uL (4.60-5.80); White Blood Count 6.4 X10*3/uL (4.8-10.8)
[2025-02-07 11:48] LABS: Alanine Aminotransferase 32 U/L (0-40); Aspartate Amino Transferase 38 U/L (5-37); Cholesterol 201 mg/dL (<200); HDL Cholesterol 56 mg/dL (>40); Iron 58 mcg/dL (45-160); Percent Iron Saturation 23 % (15-50); Total Iron Binding Capacity 249 mcg/dL (228-428); Triglycerides 119 mg/dL (<150); Unsaturated Iron Binding 191 ug/dL
== END 2025-02-07 06:55 | disposition home or self-care (01) ==
LOC: HO.HMGCLDS 06:54
PROVIDERS: PCP Internal Medicine; Visit Provider Internal Medicine
DX: I10 Essential (primary) hypertension (principal); E78.5 Hyperlipidemia, unspecified; K21.9 Gastro-esophageal reflux disease without esophagitis; D64.9 Anemia, unspecified
CPT/HCPCS: 36415; 80061; 82306; 83540; 84450; 84460; 85025

== ENCOUNTER 2025-02-13 10:37 | Outpatient (AMB) | payer MEDICARE, SELFPAY ==
[2025-02-13 10:52] VITALS: BP 100/60; PULSE 72; RESP 16; TEMP 36.4; O2SAT 95; BMI 27.2
--- NOTE | 2025-02-13 10:52 | AM.OFFVISMDC ---
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 Mixer Required: No Allergies naproxen Allergy (Intermediate, Verified 02/13/25 11:29) GI bleed NSAIDS (Non-Steroidal Anti-Inflamma Allergy (Intermediate, Verified 02/13/25 11:29) GI Bleed Medication List - Last Reconciled 02/13/25 by Umm Brewer MD albuterol sulfate 90 mcg/actuation 2 inhalations PO Q4-6H PRN famotidine 40 mg PO QAM fluticasone propion-salmeterol 250-50 mcg/dose (Wixela Inhub) 1 inh inhalation BID 90 days gabapentin 300 mg PO Q12H 3 months ipratropium bromide 2 sprays intranasal BID 3 months losartan 50 mg PO DAILY montelukast 10 mg PO QPM sulfamethoxazole-trimethoprim 400-80 mg (Bactrim) 1 tab PO DAILY HPI AWV G0438 HPI Details AWV ? 84 year old male with past medical history prostate cancer and bladder cancer, currently followed by Urology, has COPD, hypertension, dyslipidemia, chronic GERD, and degenerative arthritis of cervical spine and bronchial asthma, presents for his ? Annual Wellness Visit, initial visit.? He is currently followed by Dr. Doshi for his bladder and prostate cancer, with last PSA elevated 10/26/2024. He has never had a colon cancer screening done. He had a cholesterol screening done 02/07/2025 with normal findings and diabetes mellitus screening done 11/05/2024 , also with normal findings. He already had Prevnar 13 in but does not want to get an updated pneumococcal vaccination, declined getting flu vaccine COVID booster or any other form of vaccine. ? Medical / Social History Reviewed? Past Medical History ?Yes . ? [place] of Care / Care Team list updated ?Yes . ? Surgical/Hospitalization History ?Yes . ? Current Medications (including OTC and supplements) ?Yes . ? Family History ?Yes . ? Tobacco Control form ?Yes . ? AUDIT-C (Alcohol use) form ?Yes . ? Illicit drug use in Social History ?Yes . ? Current diagnosis of depression? ?No ? Appropriate PHQ2/PHQ9 completed ?Yes . ? Data entered by ?Industrial Pharmacist and reviewed by provider ? Fall Risk ? Fall History? Have you had any falls with injury in the past year? ?No . ? Have you had two or more falls in the past year? ?No . ? Fall Risk Assessment: ?No falls in the past year . ? HRA filled out by the patient, reviewed by Provider and scanned. ?AWV ? Balance? Romberg negative ? Tandem walk ?Yes . ? Walk and Turn ?Yes . ? Rise from sit to stand ?Yes . ?Vision? Corrective lens ?Yes ? Vision screen ? Up-to-date, Dr Kohler ?Hearing? Whisper test ?pass . ?Written Plan?Completed. See Patient Documents.? MOLST form done today, brought in healthcare proxy today HPI Comments History of Present Illness Details He has been diagnosed to have degenerative arthritis and cervical spine causing pain and stiffness in his posterior neck going down arms. Patient has been taking gabapentin which affords only temporary partial relief of pain, would like to see if he can be placed back on tramadol which she was taking in the past. Was only taking half a tablet of 50 mg once a day which has helped relieve his pain. Denies any lightheadedness or headache from taking the medication in the past. [facility] Medical History (Updated 02/13/25 @ 17:25 by Umm Brewer MD) COPD (chronic obstructive pulmonary disease) Bladder cancer Mild chronic anemia Intermittent lightheadedness Anemia Action tremor Vitamin D deficiency Dyslipidemia Peripheral polyneuropathy Degenerative arthritis of cervical spine Chronic GERD Bronchial asthma Allergic rhinitis Surgical History History of prostate surgery Social History Housing: House Are you a primary inspector health care facilities to a significant other at home: No Do you presently have visiting nurse or other home services: No Patient Tobacco Use Status: Former Tobacco user Tobacco use type: Cigarette Years Smoked: 12 e-Cigarette/Vaping Use: Never Used Second Hand Smoke Exposure: No Current occupational status: retired Sexual orientation: Straight/Heterosexual Gender identity: Male Cognitive needs: No Hearing needs: No Vision needs: Yes Questionnaire Medicare Wellness Checkup What is your age?: 80 or older What gender do you identify with?: male During the past 4 weeks, how much have you been bothered by emotional problems such as feeling anxious, depressed, irritable, sad or downhearted, and blue?: not at all During the past 4 weeks, has your physical & emotional health limited your social activities with family, friends, neighbors, or groups?: not at all During the past 4 weeks, how much bodily pain have you generally had?: moderate pain During the past 4 weeks, was someone available to help you if you needed & wanted help?: yes, as much as I wanted During the past 4 weeks, what was the hardest physical activity you could do for at least 2 minutes?: moderate Can you get to places out of walking distance without help? (For eg., can you travel alone on buses, taxis or drive your car?): Yes Can you go shopping for groceries or clothes without someone's help?: Yes Can you prepare your own meals?: Yes Can you do your housework without help?: Yes Because of any health problems, do you need the help of another person with your personal care needs such as eating, bathing, dressing or getting around the house?: No Can you handle your own money without help?: Yes During the past 4 weeks, how would you rate your health in general?: good During the past 4 weeks how have things been going for you?: good & bad parts about equal Are you having difficulties driving your car?: no Do you always fasten your seat belt when you are in a car?: yes, usually During past 4 weeks, have you been bothered by the following: never: Falling or dizzy when standing up, Trouble eating well?, Teeth or denture problems? and Problems using the telephone?, seldom: Tiredness or fatigue? and always: Sexual problems? Have you fallen 2 or more times in the past year?: No Are you afraid of falling?: No Are you a smoker?: no During the past 4 weeks, how many drinks of wine, beer, or other alcoholic beverages did you have?: 1 drink or less per week Do you exercise for about 20 minutes 3 or more times a week?: yes, some of the time Have you been given information to help with the following?: no: Hazards in your house that might hurt you? and no: Keeping track of your medications? How often do you have trouble taking medicines the way you have been told to take them?: I always take medicine as prescribed How confident are you that you can control & manage most of your health problems?: very confident What is your race?: White Mini Mental State Exam (MMSE) Orientation What is the (year) (season) (date) (day) (month)?: year (2024), season (Fall), date (02/13/25), day (Thursday) and month (DEc.) Where are we (state) (county) (town or city) (hospital) (floor)?: state [place] county ([place]), town or city ([place]) and hospital/clinic ([facility]) Score Score: 9 Activity of Daily Living Bathing - sponge bath, tub bath or shower: receives no assistance (gets in/out by self, if usual bathing means Dressing - getting clothes from closets & drawers, including inner/outer garments & fasteners.: gets clothes & gets completely dressed without help Toileting - going to the 'toilet room' for urine/bowel elimination & cleaning self/arranging clothes: goes to toilet room, cleans self, arranges clothes without help Transfer: moves in & out of bed and chair without help (may use support object) Continence: has occasional 'accidents' Feeding: feeds self without help Total Score: 0 Information obtained from: patient Using telephone: independent Traveling: independent Shopping: independent Preparing meals: independent Housework: independent Taking medicine: independent Managing money: independent PHQ-9 Over the last 2 weeks, how often have you been bothered by any of the following problems? 1. Little interest or pleasure in doing things: not at all 2. Feeling down, depressed, or hopeless: not at all 3. Trouble falling or staying asleep, or sleeping too much: several days 4. Feeling tired or having little energy: not at all 5. Poor appetite or overeating: not at all 6. Feeling bad about yourself - or that you are a failure or have let yourself or your family down: several days 7. Trouble concentrating on things, such as reading the newspaper or watching television: several days 8. Moving or speaking so slowly that other people could have noticed. Or the opposite - being so fidgety or restless that you have been moving around a lot more than usual: not at all 9. Thoughts that you would be better off or of hurting yourself in some way: not at all Total score: 3 Depression Screening Interpretation: Negative Depression Screening Done: Yes 99174 - PHQ-9 Billing: Yes Source: Developed by Drs. Chandan Loera, Aspen Marrero, Dylan Shields and colleagues, with an educational lore from [employer]. Review of Systems Const All systems reviewed & are unremarkable except as noted in HPI and below Physical Exam Vital Signs: Last Vital Signs Temp 97.5 F 02/13/25 10:52 Pulse 72 02/13/25 10:52 Resp 16 02/13/25 10:52 BP 100/60 02/13/25 10:52 Pulse Ox 95 02/13/25 10:52 Oxygen Delivery Method Room Air 02/13/25 10:52 BMI result Body Mass Index 27.2 Const Other: Alert oriented x3, no acute distress noted ambulatory normal gait Orientation/consciousness: patient oriented x3 Neck Other: Supple with no lymphadenopathy, thyroid gland nonpalpable General: Yes no CVA tenderness Back/Spine/Pelvis Back: no CVA tenderness and No back tenderness Neuro General: patient oriented x3, gait normal, moves all extremities and no focal motor deficits Extrem General: Yes full ROM, Yes no joint enlargement, Yes no clubbing, cyanosis or edema and Yes normal gait Results Reviewed Results Reviewed: Name: Sebastien Cody Age/Sex: 84/M : 1940 Unit#: [id number] Attend Dr: Umm Brewer MD Re02/07/25 Status: DEP REF Location: [facility] Disch: SPEC : [id number] BRUNA: 02/07/25 STATUS: COMP REQ : [id number] RECD: 02/07/[address]: Umm Brewer MD COMP: 02/07/25 ENTERED: 02/07/[address] [facility] [address]: ORDERED: CBC Auto Diff Test Result Flag Reference WBC 6.4 4.8-10.8 X10*3/uL RBC 4.14 L 4.60-5.80 X10*6/uL HGB 13.3 L 14.0-18.0 g/dl HCT 39.9 L 42.0-52.0 % MCV 96.4 80.0-98.0 fL MCH 32.1 27.0-33.0 pg MCHC 33.3 31.0-36.0 g/dl RDW 12.7 11.0-16.0 % PLT 322 160-400 X10*3/uL MPV 10.3 9.4-12.4 fL Neut Pct Auto 53.6 45-73 % ImGran Pct Auto 0.5 H 0.0-0.4 % Lymp Pct Auto 32.4 20-40 % [place] Pct Auto 9.8 2-11 % Eos Pct Auto 3.1 0-4 % Baso Pct Auto 0.6 0-2 % NRBC Pct Auto 0.0 0.0-0.2 /100WBC ANC Neut Abs # 3.4 2.0-8.3 x10*3/uL ImGran Abs Auto 0.03 0.00-0.03 X10*3/uL Lymph Abs Auto 2.1 1.2-4.9 X10*3/uL [place] Abs Auto 0.6 0.1-1.2 X10*3/uL Eos Abs Auto 0.2 0.0-0.4 X10*3/uL Baso Abs Auto 0.0 0.0-0.2 X10*3/uL NRBC Abs Auto 0.000 0.0-0.012 X10*3/uL Name: Sebastien Cody Age/Sex: 84/M : 1940 Unit#: [id number] Attend Dr: Umm Brewer MD Re02/07/25 Status: DEP REF Location: [facility] Disch: SPEC : [id number] BRUNA: 02/07/25 STATUS: COMP REQ : [id number] RECD: 02/07/[address]: Umm Brewer MD COMP: 02/07/25 ENTERED: 02/07/[address] [facility] [address]: ORDERED: IRON PROF, AST, ALT, Lipid Panel, Vitamin D 25-OH Test Result Flag Reference Iron 58 45-160 mcg/dL TIBC 249 228-428 mcg/dL Saturation 23 15-50 % UIBC 191 ug/dL AST (GOT) 38 H 5-37 U/L ALT (GPT) 32 0-40 U/L Triglyceride 119 <150 mg/dL Desirable Triglyceride: less than 150 mg/dL Borderline High Triglyceride 150-199 mg/dL High Triglyceride: 200-499 mg/dL Very High Triglyceride: greater than or equal to 5OO mg/dL Cholesterol 201 H <200 mg/dL Desirable Cholesterol: less than 200 mg/dL Borderline High Cholesterol: 200-239 mg/dL High Cholesterol: greater than 239 mg/dL LDL Calculated 122 H <100 mg/dL Desirable LDL: less than 100 mg/dL Near Optimal/Above Optimal LDL: 110-129 mg/dL Borderline High LDL: 130-159 mg/dL High LDL: 160-189 mg/dL Very High LDL: greater than or equal to 190 mg/dL HDL 56 >40 mg/dL Desirable HDL: greater than 40 mg/dL Note: This HDL assay may give artificially low results in patients with liver disease. Vitamin D 25-OH 57.1 >30 ng/mL Health Based Reference Values* < 20 ng/mL Deficient 20-30 ng/mL Insufficient > 30 ng/mL Sufficient Assessment & Plan Assessment & Plan (1) Encounter for initial annual wellness visit (AWV) in Medicare patient: Code(s): Z00.00 - Encounter for general adult medical examination without abnormal findings Plan: Medical wellness checklist reviewed, discussed with patient and updated. Declines getting further vaccines. Up-to-date with his advanced directives (2) Hypertension: Code(s): I10 - Essential (primary) hypertension Qualifiers: Hypertension type: primary hypertension Qualified Code(s): I10 - Essential (primary) hypertension Plan: Continue losartan 50 mg daily (3) Dyslipidemia: Code(s): E78.5 - Hyperlipidemia, unspecified Plan: Reinforced importance of following a low-cholesterol diet, last fasting lipid panel within normal limit (4) Chronic GERD: Code(s): K21.9 - Gastro-esophageal reflux disease without esophagitis Plan: Currently taking famotidine 40 mg daily in the morning (5) Bronchial asthma: Comment: HIS BRONCHIAL ASTHMA IS, MORE COUGH VARIANT, AND IS WELL CONTROLLED . HIS SYMPTOMS GET LITTLE WORSE USUALLY AT THE CHANGE OF THE WEATHER. AT PRESENT HE HAS VERY LITTLE COUGH OR WHEEZING. Code(s): J45.909 - Unspecified asthma, uncomplicated Plan: Continue Wixela 1 inhalation twice a day and has albuterol inhaler to use as needed for episodes of bronchospasm and wheezing (6) Action tremor: Comment: senile , essential tremors - mild (follows w/[facility] Neurology) Code(s): G25.2 - Other specified forms of tremor Plan: Benign, followed by [facility] neurology (7) Peripheral polyneuropathy: Code(s): G62.9 - Polyneuropathy, unspecified Plan: Continue with gabapentin 300 mg 1 tablet twice a day (8) Degenerative arthritis of cervical spine: Code(s): M47.812 - Spondylosis without myelopathy or radiculopathy, cervical region Plan: Prescription given for tramadol 50 mg per tablet may take 1 or 1/2 tablet once a day only as needed for severe pain, may take together with the Tylenol 325 mg once a day (9) Advance directive discussed with patient: Code(s): Z71.89 - Other specified counseling Plan: Initiated the conversation about Advanced Directives. Advanced Directives help patients prepare for current and future decisions about their medical treatment and place of care. Discussed with patient that it is a process where a patients current condition and prognosis are reviewed, their wishes for information regarding their illness are elicited, and likely medical dilemmas are presented and options discussed. Healthcare proxy form and MOLST form completed today. These forms can be amended as needed, reviewed yearly and make changes as needed Medications: New tramadol 50 mg PO DAILY PRN 30 tabs 0RF pain Quality Reporting (2019) Depression/Bipolar (159/160/161/177) PHQ-9: Total score: 3 Coding Level of Care Code Medicare First (G0438) Est Pt Level 4 (77234) Diagnoses Encounter for initial annual wellness visit (AWV) in Medicare patient Z00.00 Primary hypertension I10 Hypertension type: primary hypertension Dyslipidemia E78.5 Chronic GERD K21.9 Bronchial asthma J45.909 Action tremor G25.2 Peripheral polyneuropathy G62.9 Degenerative arthritis of cervical spine M47.812 Advance directive discussed with patient Z71.89 CPT Codes Advance Care Planning - Time spent: 16-45 minutes ([id number]) Additional Codes PHQ-9 - 32607 - PHQ-9 Billing: Yes ([id number]) Advance Care Planning Date of discussion: 02/13/25 Who was present: Patient Forms completed: Health Care Proxy and MOLST Time spent: 16-45 minutes Actual minutes spent: 5
== END 2025-02-13 11:52 | disposition home or self-care (01) ==
LOC: HO.HMCC 10:38
PROVIDERS: PCP Internal Medicine; Visit Provider Internal Medicine
DX: Z00.00 Encounter for general adult medical examination without abnormal findings (principal); I10 Essential (primary) hypertension; E78.5 Hyperlipidemia, unspecified; K21.9 Gastro-esophageal reflux disease without esophagitis; J45.909 Unspecified asthma, uncomplicated; G25.2 Other specified forms of tremor; G62.9 Polyneuropathy, unspecified; M47.812 Spondylosis without myelopathy or radiculopathy, cervical region; Z71.89 Other specified counseling

== ENCOUNTER → 2025-02-13 10:37 | Outpatient (BNVA) | payer MEDICARE, SELFPAY | PROVIDERS: PCP Internal Medicine; Visit Provider Internal Medicine | DX: Z00.00 Encounter for general adult medical examination without abnormal findings (principal); Z71.89 Other specified counseling; I10 Essential (primary) hypertension; E78.5 Hyperlipidemia, unspecified; K21.9 Gastro-esophageal reflux disease without esophagitis; J45.909 Unspecified asthma, uncomplicated; G25.2 Other specified forms of tremor; G62.9 Polyneuropathy, unspecified; M47.812 Spondylosis without myelopathy or radiculopathy, cervical region | CPT/HCPCS: 96127; 99212 ==

== ENCOUNTER 2025-02-16 13:36 | Outpatient (AMB) | payer MEDICARE, SELFPAY ==
--- NOTE | 2025-02-16 14:20 | MHC.OFFVIS ---
Intake Visit Reasons: TURBT follow up SET UA Intake Note: Reason for Visit: Post Op TURBT Urology Meds: None Blood Thinners: None Labs: None Imaging: None Last PVR: None PVR: Preventive Medicine Officer Required: No Allergies naproxen Allergy (Intermediate, Verified 02/16/25 14:22) GI bleed NSAIDS (Non-Steroidal Anti-Inflamma Allergy (Intermediate, Verified 02/16/25 14:22) GI Bleed HPI Comments Details: Carlyle is a pleasant male. He is a patient of Dr. Brewer. He is seen for the following urologic conditions - superficial high-grade bladder cancer - prostate cancer Discussed TURBT findings Plan for mitomycin-C with cytarabine 5 doses starting in early March Plan for follow-up check cystoscopy in office in May Bladder cancer - high-grade superficial 11/24, 02/23 02/23 Bladder, Transurethral resection: - High-grade papillary urothelial carcinoma, non-invasive. 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 service did include a period of time on [place] CT urogram performed - bilateral renal cysts, 6 x 3 cm bladder lesion right sidewall Cytology - 09/23 - high-grade suspicious Intervention - 11/24 TURBT - large volume high-grade superficial bladder cancer Prostate cancer Progressive - 09/17 5.4, 10/24 10.6 Biopsy shows 4 cores out of 12 - Denbo 3 + 3 Grade group 1 Low volume disease PFSH Medical History COPD (chronic obstructive pulmonary disease) Bladder cancer Mild chronic anemia Intermittent lightheadedness Anemia Action tremor Vitamin D deficiency Dyslipidemia Peripheral polyneuropathy Degenerative arthritis of cervical spine Chronic GERD Bronchial asthma Allergic rhinitis Surgical History History of prostate surgery Social History Housing: House Are you a primary healthcare insurance sales agent to a significant other at home: No Do you presently have visiting nurse or other home services: No Patient Tobacco Use Status: Former Tobacco user Tobacco use type: Cigarette Years Smoked: 12 e-Cigarette/Vaping Use: Never Used Second Hand Smoke Exposure: No Current occupational status: retired Sexual orientation: Straight/Heterosexual Gender identity: Male Cognitive needs: No Hearing needs: No Vision needs: Yes Review of Systems Const Denies chills and Denies fever(s) Card Reports no additional complaints and Denies syncope Resp Denies cough GI Denies abdominal pain and Denies heartburn Reports as per HPI and Denies change in libido Neuro Denies syncope Psych Denies change in libido Endo Denies change in libido Physical Exam Const General: cooperative, healthy appearing, comfortable and no acute distress Orientation/consciousness: patient oriented x3 HEENT Face and sinus: Yes normal facial exam Mouth: moist mucous membranes Neck Neck: Yes normal visual inspection, Yes full ROM and Yes trachea midline Chest Chest palpation & inspection: normal inspection of the chest Resp Effort & Inspection: normal respiratory effort, able to speak in complete sentences and no respiratory distress GI Inspection: Yes normal to inspection Back/Spine/Pelvis Cervical Spine: normal cervical lordosis Thoracic/Lumbar Spine: thoracic and lumbar spine normal to inspection Skin General skin exam: no rashes or lesions noted Neuro General: patient oriented x3, gait normal, tone normal and moves all extremities Extrem General: Yes normal to inspection and Yes capillary refill normal Assessment & Plan Assessment & Plan (1) Hormone sensitive prostate cancer: Code(s): C61 - Malignant neoplasm of prostate; Z19.1 - Hormone sensitive malignancy status Category: Medical (2) Bladder cancer: Comment: High-grade superficial Code(s): C67.9 - Malignant neoplasm of bladder, unspecified Category: Medical Plan Bladder immunotherapy Bladder immuno/chemotherapy was discussed today. These medications are used to create an immune reaction against bladder cancer. The intention is to destroy any tumor cells left on the bladder surface. Since BCG and gemcitabine involved immunostimulation they are not indicated in situations where there is immune weakness. Medications are placed directly into the bladder. It should be held for one to 2 hours. The toilet should be disinfected with a cap full of household bleach prior to urination. Side effects from BCG and gemcitabine generally include mucosa-related changes such as urinary urgency and/or frequency, and hematuria BCG may also invoke an infection type response. An elevated temperature may be indicative of more serious issues and should be reported to the Dr. The intention with bladder immunotherapy is to reduce the frequency of bladder cancer recurrence by 50%. Availability of BCG is highly variable. There is a single manufacture who has had difficulty with quality review trainer since 2017. Multiple protocols are available - mitomycin-C for alkalinization - 40mg/200mg in 40cc NSal - A Randomized Clinical Trial of Intravesical Instillation of Mitomycin-C and Combination of Mitomycin-C and Cytarabine (Diane-C) in Non-Muscle Invasive Bladder Cancer - Evi Oliveira POONAMU Int. 2021;129(4):534-541. doi: [email or web address]/bju.15522 - Combination Gemcitabine/Docetaxel - 1gm/40mg in 100cc NSal 60 min (Intravesical gemcitabine and docetaxel in the treatment of BCG-na?ve non?muscle invasive urothelial carcinoma of the bladder: Updates from a phase 2 trial. Crossref DOI link:?https://doi.org/10.1200/JCO.2023.41.6_suppl.507) Will undergo - mitomycin-C with cytarabine Orders: Orders AMB Post Void Residual by ultrasound Today R39.14 - Feeling of incomplete bladder emptying Patient Instructions: This note is constructed using voice recognition software. While every effort has been made to ensure accuracy elocution teacher errors may have been included. Imaging studies, laboratory and physical exam results were discussed and reviewed in detail. No major barriers to patient understanding were identified. An opportunity to ask questions regarding the treatment plan was provided. All questions were answered. The patient expressed understanding and agreement with the above treatment plan. The patient is aware they should contact our office by phone for worsening of their current condition or the appearance of new urologic symptoms. Compliance is encouraged with any medications and followup testing that is ordered. It is a privilege to participate in the urologic care of your patient. If you have any questions or concerns regarding treatment for the above conditions, or other urologic issues, please do not hesitate to contact me. The office telephone contact is [phone]. Sincerely, Dr Varun Doshi MD, [facility] - Urology Compassionate Specialist Care for the Genitourinary System Coding Level of Care Code Est Pt Level 3 (86158) Add On Problem Visit Only Diagnoses Hormone sensitive prostate cancer C61; Z19.1 Bladder cancer C67.9
--- OUTSIDE RECORDS SUMMARY | 2025-02-16 17:48 | XMS_ITS | Clinical Summary ---
Author Organization [facility] Address [address] [facility] [address] [place] [id number] Phone Care Team Providers Care Restoration Ecologist Name Role Phone Unavailable Primary Care Provider [...] EDT) SODIUM 138 133 - 146 mmol/L [facility] CHLORIDE 98 96 - 108 mmol/L [facility] POTASSIUM 4.0 3.3 - 5.1 mmol/L [facility] CO2 25 21 - 35 mmol/L [facility] BUN 17 6 - 19 mg/dL [facility] CREATININE 1.00 0.5 - 1.5 mg/dL [facility] GLUCOSE 103(H) 70 - 99 mg/dL [facility] CALCIUM 8.9 8.4 - 10.3 mg/dL [facility] EGFR 73 >59 mL/min/1.[address] [facility] Comment:If patient is black, multiply result by 1.159. Estimated glomerular filtration rate calculated using the CKD-EPI equation. ANION GAP 19 10 - 20 mmol/L [facility] Blood 12/15/2017 1:39 PM EDT 12/15/2017 7:57 PM EDT us Debby Brunner NP LAB BLOOD BKR ORDERABLES Final Result [address] [id number] from Last 3 Months or Most Recently Relevant to Health Maintenance [place] [id number] MEDICARE PPO BLUE [place]PLACEMENT [place] [address] MEDICARE PPO BLUE REPLACEMENT MEDICARE PPO BLUE REPLACEMENT MEDICARE PPO BLUE REPLACEMENT MEDICARE PPO BLUE [place]PLACEMENT [place] [address] MEDICARE PPO BLUE [place]EMENT [place] [address] MEDICARE PPO BLUE [place] [address] MEDICARE PPO BLUE REPLACEMENT Additional Source Comments The information contained in this document represents components of the legal health record. It is not the complete legal health record.[facility]
--- OUTSIDE RECORDS SUMMARY | 2025-02-16 17:48 | XMS_ITS | Patient Health Record ---
Author Organization [facility] Address [address] [place] [id number] Care Team Providers Care Public Relations Account Executive Name Role Phone Debby Brunner NP Primary Care Provider Chandan Bradley Unavailable [phone] Cristin YAÑEZ, Joon Unavailable Unavailable Reason For [...] Notes Problem Gastroesophageal reflux disease with esophagitis (468534564) Gastroesophageal reflux disease with esophagitis (K21.0) Active confirmed Problem Erosive esophagitis (68907509) Erosive esophagitis (K22.10) Active confirmed Plan Of Treatment Future Test Test Name Order Date COLONOSCOPY 07/20/2014 UPPER GI ENDOSCOPY 01/20/2017 Insurance Providers Payer Name Payer Address Payer Phone Subscriber Number Group Number Insured Name Patient Relationship to Insured Coverage Start Date Coverage End Date [facility] [address] [place], [place] [id number] JR PAUL Self - patient is the insured Medical (General) History Medical History History ICD Code Denies PA,DM,CVA,Lung disease,renal dise ase UGI Bleed in 10/2016--EGD [...]
== END 2025-02-16 14:48 | disposition home or self-care (01) ==
LOC: HO.HUSH 13:36
PROVIDERS: PCP Internal Medicine; Visit Provider Urology
DX: C61 Malignant neoplasm of prostate (principal); Z19.1 Hormone sensitive malignancy status; C67.9 Malignant neoplasm of bladder, unspecified
CPT/HCPCS: 99213; G2211

== ENCOUNTER → 2025-02-16 13:36 | Outpatient (BNVA) | payer MEDICARE, SELFPAY | PROVIDERS: PCP Internal Medicine; Visit Provider Urology | DX: C61 Malignant neoplasm of prostate (principal); C67.9 Malignant neoplasm of bladder, unspecified; Z19.1 Hormone sensitive malignancy status | CPT/HCPCS: 99212 ==